=== PATIENT | male | born 1955 | race Caucasian/White ===

== ENCOUNTER → 2020-07-25 | Outpatient (CLI) | payer MEDICARE ==
--- NOTE | 2020-07-25 15:30 | XR ---
EXAMINATION TYPE: XR chest 2V DATE OF EXAM: 07/25/2020 COMPARISON: 07/15/2010 INDICATION: Shortness of breath x6 months TECHNIQUE: Frontal and lateral views of the chest are obtained. FINDINGS: The heart size is normal. The pulmonary vasculature is normal. The lungs are clear. There is mild hyperinflation flattening the diaphragms. Early emphysematous anastasiya nge could be considered. This could be good inspiratory effort. IMPRESSION: 1. Hyperinflation versus early emphysematous change. 2. No acute pulmonary process.
== END | disposition home or self-care (01) ==
LOC: RADXRMAIN 10:37
PROVIDERS: ATTEND Family Medicine
DX: R06.02 Shortness of breath (principal)
CPT/HCPCS: 71046

== ENCOUNTER 2020-08-03 06:08 | Day surgery (SDC) | payer MEDICARE ==
[2020-08-01 15:04] VITALS: BMI 32.1
[~2020-08-03 06:08] MED LIST: ALPRAZolam 0.5 MG TAB PO PRN; NITROGLYCERIN SL TABS 0.4 MG TAB SUBLINGUAL PRN; SODIUM CHLORIDE 0.9% 1,000 ML in EMPTY BAG 1 BAG IV ONE
[2020-08-03] MEDS: ALPRAZolam 0.25 MG TAB PO PRN ×2 (06:45→06:58)
[2020-08-03] MEDS ORDERED: SODIUM CHLORIDE 0.9% 1,000 ML IV ONE (06:55)
[2020-08-03 06:59] VITALS: TEMP 97.8
[2020-08-03] MEDS ORDERED: ATORVASTATIN 80 MG TAB PO ONE (07:00)
[2020-08-03] MEDS ORDERED: ASPIRIN 325 MG TAB PO ONE (07:00)
[2020-08-03 07:13] LABS: Basophils # (A) 0.1 k/uL (0-0.2); Basophils % (A) 1 %; Eosinophils # (A) 0.2 k/uL (0-0.7); Eosinophils % (A) 2 %; HCT 45.4 % (39.0-53.0); HGB 15.5 gm/dL (13.0-17.5); Lymphocytes % (A) 27 %; MCH 30.5 pg (25.0-35.0); MCV 89.6 fL (80.0-100.0); Mean Platelet Volume 7.6; Monocytes # (A) 0.7 k/uL (0-1.0); Monocytes % (A) 10 %; Neutrophils # (A) 4.2 k/uL (1.3-7.7); Neutrophils % (A) 58 %; Platelet Count 188 k/uL (150-450); RBC 5.07 m/uL (4.30-5.90); RDW 13.7 % (11.5-15.5); WBC 7.2 k/uL (3.8-10.6)
[2020-08-03] MEDS ORDERED: fentaNYL (PF) 50 MCG/ML 2 ML AMP ONE ×2 (07:13→10:00)
[2020-08-03] MEDS: BENZOCAINE SPRAY 1 CAN TOPICAL ONE ×2 (07:33→07:43)
[2020-08-03] MEDS ORDERED: fentaNYL (PF) 50 MCG/ML 2 ML AMP IVP ONE (07:44)
[2020-08-03] MEDS ORDERED: MIDAZOLAM 2 MG/2 ML VIAL IVP ONE ×2 (07:44→07:47)
[2020-08-03 08:16] VITALS: RESP 16
[2020-08-03 08:40] LABS: African American GFR (CKD) >90 (>60 ml/min/1.73 sqM); Anion Gap 7 mmol/L; Blood Urea Nitrogen 16 mg/dL (9-20); Calcium 8.7 mg/dL (8.4-10.2); Carbon Dioxide 22 mmol/L (22-30); Chloride 110 mmol/L (98-107); Glucose 104 mg/dL (74-99); Non-African American GFR(CKD) 87 (>60 ml/min/1.73 sqM); Potassium 4.1 mmol/L (3.5-5.1); Sodium 139 mmol/L (137-145)
[2020-08-03] MEDS ORDERED: IV FLUID CONTINUATION 700 ML IV ONE (09:29)
[2020-08-03] MEDS ORDERED: VERAPAMIL 2.5 MG/ML 2 ML AMP ONE (09:32)
[2020-08-03] MEDS ORDERED: LIDOCAINE 1% INJ 10MG/ML (20 ML MDV) ONE (09:32)
[2020-08-03] MEDS ORDERED: fentaNYL (PF) 50 MCG/ML 2 ML AMP IV ONE (10:01)
[2020-08-03] MEDS ORDERED: LIDOCAINE 1% INJ 10MG/ML (20 ML MDV) SQ ONE (10:09)
[2020-08-03] MEDS ORDERED: VERAPAMIL SYRINGE (5 MG/10 ML) INTRAARTER ONE (10:10)
[2020-08-03] MEDS ORDERED: HEPARIN SODIUM 1,000 UN/ML (10ML VL) ONE (10:25)
[2020-08-03] MEDS ORDERED: HEPARIN SODIUM 1,000 UN/ML (10ML VL) IV ONE (10:28)
[2020-08-03] MEDS ORDERED: IOPAMIDOL-370 125ML BTL INJ ONE (10:36)
[2020-08-03 10:45] LABS: O2 Sat Blood Gas 63.3 %
[2020-08-03 10:46] LABS: O2 Sat Blood Gas 96.6 %
[2020-08-03] MEDS ORDERED: RX INFO: IV CONTRAST WAS GIVEN 1 EACH MISC MISCELLANE PRN (10:48)
--- NOTE | 2020-08-03 10:55 | EST ---
EXERCISE STRESS INDICATION: Evaluation of mitral valve. PROCEDURE: After explaining the procedure to the patient, its risks and the complications, his blood pressure, heart rate, O2 saturation was monitored. He received 3 mg intravenous Versed and 50 mcg intravenous fentanyl. The probe was introduced in the esophagus without difficulty. Images were obtained. Following that, the probe was removed. There was no immediate complication. FINDINGS: Left atrial size is dilated. Left atrial appendage is normal. Left ventricular size is normal. Ejection fraction of 50% to 55%. The aortic valve revealed mild fibrocalcific change with aortic cusp with preserved opening, mitral valve revealed thickening of the anterior mitral valve leaflet with severe prolapse of the P2 segment. The tricuspid valve is normal. Pulmonic valve is normal, descending thoracic aorta appears normal. No pericardial effusion was noted. Contrast bubble study revealed no evidence of shunting across the interatrial septum with Valsalva maneuver. Doppler pulse wave and color Doppler obtained and revealed severe mitral eccentric regurgitation with moderate tricuspid regurgitation. The estimated right ventricular systolic pressure was 40 mmHg. Mild aortic regurgitation was noted. No shunting by color Doppler study was noted. CONCLUSION: 1. Dilated left atrium with normal appearance left atrial appendage. 2. Normal left ventricular size with an ejection fraction of 50% to 55%. 3. Severe prolapse of the P2 segment with severe eccentric mitral regurgitation. 4. Moderate tricuspid regurgitation with mild pulmonary hypertension. 5. Mild aortic regurgitation with mild thickening of the aortic leaflets. 6. Normal appearance of the descending thoracic aorta. 7. No shunting across the interatrial septum. 8. No pericardial effusion. MMODL / IJN: [id number] /
[2020-08-03] MEDS ORDERED: SODIUM CHLORIDE 0.9% 1,000 ML IV SCH (11:00)
--- NOTE | 2020-08-03 13:06 | P.GSCN ---
History of Present Illness Consult date: 08/03/20 Reason for Consult: Mitral valve regurgitation Requesting physician: Chad Maxwell History of present illness: This is a 64-year-old gentleman who follows on an outpatient basis with Dr. Joseph Wan for primary care and Dr. Maxwell for cardiology. He has a previous medical history of recent diagnosis of atrial fibrillation on Eliquis for anticoagulation, hypertension, hyperlipidemia, hypothyroid, left and right ingu inal hernia with repair of the right, and previous tobacco dependence. He has been experiencing progressive shortness of breath over the previous 6 months with the worst of it being in the last few weeks. In addition he has been experiencing paroxysmal nocturnal dyspnea and orthopnea as well as what sounds like symptoms of obstructive sleep apnea. He denies any chest pain, palpitations, syncope, stroke-like symptoms, edema, or any other aggravating or alleviating symptoms. Apparently he used to be a very active person but due to his symptoms of shortness of breath he has become much less active. He was found to have a new onset atrial fibrillation and noted to have a murmur by his primary care physician and was referred to cardiology who did a transthoracic echocardiogram demonstrating severe concentric left ventricular hypertrophy with EF 50%, no wall motion abnormalities, severe eccentric mitral regurgitation with moderate posterior leaflet mitral valve prolapse, mild to moderate aortic regurgitation with aortic valve area 1.13 cm and peak/mean gradient 38/12 mmHg, and mild to moderate tricuspid regurgitation. He was placed on Lopressor, Cozaar, Lasix, and Eliquis and was recommended to have transesophageal echocardiogram and heart catheterization. For thoroughness his primary care physician completed a pulmonary function test in the office with demonstrated FEV1 74% predicted, and a chest x-ray which demonstrated COPD but no acute process. He came to [facility] today for an outpatient ALEXY and cath. Heart catheterization revealed minimal nonobstructive disease in the circumflex artery. ALEXY demonstrated ejection fraction 50-55%, severe prolapse of P2 with severe eccentric mitral regurgitation, moderate tricuspid regurgitation with mild pulmonary hypertension, and mild aortic insufficiency with thickening of the leaflets. Due to these findings Dr. Jack from cardiothoracic surgery was consulted for surgical recommendations. Review of Systems Review of systems was completed and was negative except as noted - Constitutional Reports fatigue - Cardiovascular Reports as per HPI, Reports decreased exercise tolerance, Reports dyspnea on exertion, Reports orthopnea, Reports paroxysmal nocturnal dyspnea Past Medical History Past Medical History: Atrial Fibrillation, Hyperlipidemia, Hypertension, Thyroid Disorder Additional Past Medical History / Comment(s): recent SOB w/exertion, heart murmur History of Any Multi-Drug Resistant Organisms: None Reported Past Surgical History: Cholecystectomy, Hernia Repair, Tonsillectomy Additional Past Surgical History / Comment(s): Right inguinal hernia repair, umbilical hernia repair Past Anesthesia/Blood Transfusion Reactions: No Reported Reaction Past Psychological History: No Psychological Hx Reported Smoking Status: Former smoker Past Alcohol Use History: None Reported Past Drug Use History: None Reported - Past Family History Father Family Medical History: Cancer Additional Family Medical History / Comment(s): Father of brain cancer Mother Family Medical History: CVA/TIA Additional Family Medical History / Comment(s): Mother of stroke Medications and Allergies Home Medications Medication Instructions Recorded Confirmed Type Albuterol Sulfate [Proair Hfa] 1 - 2 puff INHALATION Q6HR PRN 08/01/20 08/03/20 History Apixaban [Eliquis] 5 mg PO BID 08/01/20 08/01/20 History Furosemide [Lasix] 20 mg PO DAILY 08/01/20 08/03/20 History Levothyroxine Sodium [Synthroid] 50 mcg PO DAILY 08/01/20 08/03/20 History Losartan Potassium [Cozaar] 50 mg PO PC-SUPPER 08/01/20 08/03/20 History Metoprolol Tartrate [Lopressor] 25 mg PO BID 08/01/20 08/03/20 History Allergies Allergy/AdvReac Type Severity Reaction Status Date / Time Penicillins Allergy Rash/Hives Verified 08/01/20 14:29 Surgical - Exam Vital Signs Temp Pulse Resp BP Pulse Ox 97.8 F 70 16 124/82 98 08/03/20 06:58 08/03/20 06:58 08/03/20 06:58 08/03/20 06:58 08/03/20 06:58 - General well developed, well nourished, no distress, no pain - Eyes PERRL, normal ocular movement - ENT Multiple silver fillings to his back teeth no hearing loss - Neck no masses, no bruits, trachea midline - Respiratory Lungs sounds diminished bilaterally. Respirations even, nonlabored. Currently on room air with oxygen saturation 96%. No chest wall deformities. No clubbing or cyanosis present. - Cardiovascular S1, barely audible S2 present. Systolic murmur present. Irregular rate and rhythm, controlled atrial fibrillation on telemetry. Palpable peripheral pulses bilaterally. No edema present. No calf pain or tenderness noted. No varicosities noted. - Abdomen Abdomen: soft, non tender, bowel sounds - Genitourinary Deferred - Rectum Deferred - Integumentary no rash, no growths, no abnormal pigmentation - Neurologic normal coordination, normal sensation - Musculoskeletal normal gait, normal posture - Psychiatric oriented to time, oriented to person, oriented to place, speech is normal, memory intact Results - Labs 08/03/20 06:40 08/03/20 08:18 Abnormal Lab Results - Last 24 Hours (Table) 08/03/20 Range/Units 08:18 Chloride 110 H (98-107) mmol/L Glucose 104 H (74-99) mg/dL Diabetes panel 08/03/20 Range/Units 08:18 Sodium 139 (137-145) mmol/L Potassium 4.1 (3.5-5.1) mmol/L Chloride 110 H (98-107) mmol/L Carbon Dioxide 22 (22-30) mmol/L BUN 16 (9-20) mg/dL Creatinine 0.92 (0.66-1.25) mg/dL Glucose 104 H (74-99) mg/dL Calcium 8.7 (8.4-10.2) mg/dL Calcium panel 08/03/20 Range/Units 08:18 Calcium 8.7 (8.4-10.2) mg/dL Pituitary panel 08/03/20 Range/Units 08:18 Sodium 139 (137-145) mmol/L Potassium 4.1 (3.5-5.1) mmol/L Chloride 110 H (98-107) mmol/L Carbon Dioxide 22 (22-30) mmol/L BUN 16 (9-20) mg/dL Creatinine 0.92 (0.66-1.25) mg/dL Glucose 104 H (74-99) mg/dL Calcium 8.7 (8.4-10.2) mg/dL Adrenal panel 08/03/20 Range/Units 08:18 Sodium 139 (137-145) mmol/L Potassium 4.1 (3.5-5.1) mmol/L Chloride 110 H (98-107) mmol/L Carbon Dioxide 22 (22-30) mmol/L BUN 16 (9-20) mg/dL Creatinine 0.92 (0.66-1.25) mg/dL Glucose 104 H (74-99) mg/dL Calcium 8.7 (8.4-10.2) mg/dL - Imaging Chest x-ray: report reviewed, image reviewed Assessment and Plan Assessment: 1. Severe prolapse of P2 with severe eccentric mitral regurgitation 2. Moderate tricuspid regurgitation with mild pulmonary hypertension 3. Mild aortic insufficiency 4. Mild nonobstructive disease in the circumflex coronary artery 5. Recent diagnosis of atrial fibrillation on Eliquis for anticoagulation 6. Hypertension 7. Hyperlipidemia 8. Hypothyroid 9. Previous tobacco dependence 10. Mild COPD with FEV1 74% of predicted Plan: The patient was seen and examined at the bedside in the extended stay unit. Chart/diagnostics reviewed. The case will be discussed in detail with Dr. Jack who will review the patient's films today and meet the patient. The usual perioperative course of mitral valve repair versus replacement was discussed in detail with the patient and his , all risks and benefits were reviewed, all questions were answered. The patient did indicate he would like to proceed with surgery. Most of the preoperative workup has already been c ompleted recently, we will order carotid Doppler studies. The patient was informed that we would need dental clearance prior to surgery, he did indicate that he sees a dentist regularly and they would inquire about dental clearance upon discharge today. We will calculate STS risk score and discuss with the patient and his . Continue medical management per primary care and cardiology. Once Dr. Jack has reviewed the patient's films and met with the patient and his the patient may be discharged to home with follow-up in our office to set a date for surgery. Thank you Dr. Maxwell for this consult. We look forward to working with you in the care of your patient. Time with Patient: Greater than 30
--- NOTE | 2020-08-03 14:58 | US ---
EXAMINATION TYPE: US carotid duplex BILAT DATE OF EXAM: 08/03/2020 COMPARISON: NONE CLINICAL HISTORY: Preoperative open heart. EXAM MEASUREMENTS: RIGHT: Peak Systolic Velocity (PSV) cm/sec ----- Right CCA: 69.1 ----- Right ICA: 67.6 ----- Right ECA: 84.1 ICA/CCA ratio: 1.0 RIGHT: End Diastole cm/sec ----- Right CCA: 16.6 ----- Right ICA: 29.0 ----- Right ECA: 10.4 LEFT: Peak Systolic Velocity (PSV) cm/sec ----- Left CCA: 68.3 ----- Left ICA: 60.5 ----- Left ECA: 85.0 ICA/CCA ratio: 0.9 LEFT: End Diastole cm/sec ----- Left CCA: 18.7 ----- Left ICA: 21.3 ----- Left ECA: 7.3 VERTEBRALS (direction of flow): Right Vertebral: Antegrade Left Vertebral: Antegrade Rhythm: Arrhythmia Minimal eccentric plaque grayscale images left carotid bulb. IMPRESSION: No hemodynamically significant stenosis seen in either internal carotid artery Criteria for Assigning % of Stenosis / Diameter reduction (Estimation based on the indirect measurements of the internal carotid artery velocities (ICA PSV). 1. Normal (no stenosis)=ICA PSV < 125 cm/s: ratio < 2.0: ICA EDV<40 cm/s. 2. Less than 50% stenosis=ICA PSV < 125 cm/s: ratio < 2.0: ICA EDV<40 cm/s. 3. 50 to 69% stenosis=ICA PSV of 125 to 230 cm/s: ration 2.0 ? 4.0: ICA EDV 40-100 cm/s. 4. Greater than 70% stenosis to near occlusion= ICA PSV > 230 cm/s: ratio > 4.0: ICA EDV > 100 cm/s. 5. Near occlusion= ICA PSV velocities may be low or undetectable: variable ratio and ICA EDV. 6. Total occlusion=unable to detect flow.
[2020-08-03 15:31] VITALS: BP 142/82; PULSE 82
--- NOTE | 2020-08-03 16:33 | CC ---
CARDIAC CATHETERIZATION REPORT Mr. Galloway is a 64-year-old male with newly diagnosed atrial fibrillation and mitral regurgitation with symptoms of significant dyspnea. In view of that, recommendation made regarding cardiac catheterization. The procedures, risks, and complications were discussed with the patient who is in full understanding and agreement. PROCEDURE: Patient was brought to lab intern in a fasting semi-sedated state after receiving fentanyl and Benadryl and achieving moderate conscious sedated state. Using Xylocaine anesthesia and Seldinger technique, a 6-Barbadian sheath was introduced in the right radial artery. Subsequently, the venous catheter in the left basilic vein was exchanged to a 6-Barbadian sheath and right heart catheterization performed using Fombell- Hoa catheter. Multiple pressure and samples were obtained. Cardiac output by thermodilution was calculated. Following that, selective right and left coronary angiography was performed using 5-Barbadian 3.5 bend right and left Latosha catheter. Multiple views of the coronary artery including hemiaxial views obtained. Following that, a 6-Barbadian tight pigtail catheter was introduced in the left ventricle and a 30- degree GUTIÉRREZ view of the left ventricle was obtained. Following that, catheter and sheath were removed. Hemostasis was obtained with deployment of TR band on the right radial and compression of the right basilic vein. Following that, the patient was returned to his room in stable condition. There was no immediate complication. Of note, the patient received 5000 units of intravenous heparin as well as intra-arterial verapamil. HEMODYNAMICS: Right atrial saturation 63%, pulmonary saturation 62%, radial artery saturation of 97%. Cardiac output by Wilfredo of 5 L/minute and by thermodilution 5.6 L/minutes. Pulmonary artery systolic pressure of 50 with a diastolic of 18 and a mean of 30 mmHg. Pulmonary capillary wedge pressures were V-wave of 45 with a mean of 25 mmHg. Right ventricular systolic pressure of 45 with an end-diastolic of 10, right atrium V-wave of 10 with a mean of 9 mmHg. There was no gradient across the aortic valve. CORONARIES: 1. FLUOROSCOPY: There was calcification involving the mitral valve. 2. LEFT MAIN: This is a short sized vessel, bifurcating into left circumflex, left anterior descending artery. Left main coronary artery has no evidence of high- grade stenosis. 3. LEFT ANTERIOR DESCENDING ARTERY: This is a large-sized vessel, reaching toward the apex with a wraparound apex segment, giving rise to a large diagonal branch. The left anterior descending artery has mild intimal disease proximally of 10% to 20% without any evidence of high-grade stenosis. 4. LEFT CIRCUMFLEX: This is a large nondominant vessel, giving rise to 3 obtuse marginal branch. The left circumflex has mild intimal disease in the mid segment of 10% to 20% without any evidence of high-grade stenosis. 5. RIGHT CORONARY ARTERY: This is a large dominant vessel, bifurcating distally into PDA and posterolateral segment and branches. The right coronary artery as well as branches have no evidence of obstructive coronary artery disease. 6. LEFT VENTRICULOGRAM: Left ventriculogram was performed in 30-degree GUTIÉRREZ view and revealed a normal left ventricular size with mild global hypokinesis. Estimated ejection fraction of 45% to 50%. There was 4+ mitral regurgitation with dilatation of the left atrium. CONCLUSION: 1. Mild coronary artery disease. 2. Mild to moderate pulmonary hypertension. 3. Severe mitral regurgitation with mildly impaired left ventricular systolic function. RECOMMENDATION: In view of finding anatomy, I recommend proceeding with evaluation for mitral valve repair. The rationale behind those recommendation were discussed with the patient and his family who are in full understanding and agreement. MMODL / IJN: [id number] /
--- NOTE | 2020-08-03 16:33 | LTR ---
DATE OF SERVICE: 08/03/2020 RE: Ridge Galloway Dear Dr. Wan; I had the pleasure to perform cardiac catheterization and transesophageal echocardiogram on Mr. Galloway, reports in hospital on August 03, 2020 and a full copy of the procedure note will be forwarded to you. In brief, he was found to have severe mitral regurgitation with mild to moderate pulmonary hypertension and mildly impaired left ventricular systolic function. Based on those findings, I have recommended to proceed with evaluation for mitral valve repair. I will keep you updated on his progress. Thank you again for allowing me to participate in this patient's care. Please feel free to call for any questions. Sincerely yours, Chad Maxwell MD MMMORAIMAL / KATIEN: [id number] /
[2020-08-03] MEDS ORDERED: LOSARTAN 50 MG TAB PO SCH (18:30)
[2020-08-03] MEDS ORDERED: METOPROLOL TARTRATE 25 MG TAB PO SCH (21:00)
[2020-08-04] MEDS ORDERED: LEVOTHYROXINE 50 MCG TAB PO SCH (06:30)
[2020-08-04] MEDS ORDERED: FUROSEMIDE 20 MG TAB PO SCH (09:00)
== END 2020-08-03 15:50 | disposition home or self-care (01) ==
LOC: CATHCVL 06:08
PROVIDERS: ATTEND Internal Medicine Interventional Cardiology
DX: I08.3 Combined rheumatic disorders of mitral, aortic and tricuspid valves (principal); I27.20 Pulmonary hypertension, unspecified; I25.10 Atherosclerotic heart disease of native coronary artery without angina pectoris; I48.11 Longstanding persistent atrial fibrillation; I10 Essential (primary) hypertension; E78.5 Hyperlipidemia, unspecified; E03.9 Hypothyroidism, unspecified; J44.9 Chronic obstructive pulmonary disease, unspecified; Z87.891 Personal history of nicotine dependence; Z79.899 Other long term (current) drug therapy; Z79.890 Hormone replacement therapy; Z79.82 Long term (current) use of aspirin; Z88.0 Allergy status to penicillin; Z87.19 Personal history of other diseases of the digestive system; Z98.890 Other specified postprocedural states; Z90.49 Acquired absence of other specified parts of digestive tract; Z79.01 Long term (current) use of anticoagulants; Z90.89 Acquired absence of other organs; Z80.8 Family history of malignant neoplasm of other organs or systems; Z82.3 Family history of stroke
CPT/HCPCS: 93312; 93320; 93325; 93460; 80048; 85018; 82810; 85025; 87070; 93880; C1751; C1769; C1894; J2250; J2001; J3010; J1644; Q9967

== ENCOUNTER → 2020-09-14 | Outpatient (CLI) | payer MEDICARE, BC ==
[2020-09-14 11:08] LABS: Partial Thromboplastin Time 26.4 sec (22.0-30.0); Prothrombin Time 10.6 sec (9.0-12.0)
[2020-09-14 11:13] LABS: Albumin 4.4 g/dL (3.5-5.0); Calcium 9.3 mg/dL (8.4-10.2); Potassium 4.5 mmol/L (3.5-5.1); Total Bilirubin 0.8 mg/dL (0.2-1.3); Total Protein 7.2 g/dL (6.3-8.2)
[2020-09-14 11:14] LABS: Appearance,Urine Clear (Clear); Bilirubin,Urine Negative (Negative); Blood,Urine Negative (Negative); Color,Urine Light Yellow; Glucose,Urine (UA) Negative (Negative); Ketones,Urine Negative (Negative); Leukocyte Esterase,Urine Negative (Negative); Nitrite,Urine Negative (Negative); Protein,Urine Negative (Negative); Specific Gravity,Urine 1.012 (1.001-1.035); Urobilinogen,Urine <2.0 mg/dL (<2.0)
--- NOTE | 2020-09-14 11:49 | XR ---
EXAMINATION TYPE: XR chest 2V DATE OF EXAM: 09/14/2020 COMPARISON: 07/25/2020 HISTORY: Shortness of breath TECHNIQUE: Frontal and lateral views of the chest are obtained. FINDINGS: Scattered senescent parenchymal changes noted. Hyperinflation compatible with COPD. No evidence for infiltrate. No evidence for atelectasis. Heart size is stable. Mediastinal structures are stable and grossly unremarkable. No evidence for hilar prominence. Degenerative changes dorsal spine. IMPRESSION: 1. No evidence for acute pulmonary disease.
[2020-09-14 12:08] LABS: HGB 15.2 gm/dL (13.0-17.5); MCH 31.6 pg (25.0-35.0); MCHC 34.5 g/dL (31.0-37.0); MCV 91.6 fL (80.0-100.0); Mean Platelet Volume 8.2; Platelet Count 169 k/uL (150-450); RBC 4.81 m/uL (4.30-5.90); RDW 13.2 % (11.5-15.5); WBC 6.7 k/uL (3.8-10.6)
[2020-09-14 21:55] LABS: Hepatitis A Antibody IgM Non-Reactive (Non-Reactive); Hepatitis B Core IgM Non-Reactive (Non-Reactive); Hepatitis B Surface Antigen Non-Reactive (Non-Reactive); Hepatitis C IgG Antibody Non-Reactive (Non-Reactive)
--- NOTE | 2020-09-16 10:50 | P.PN ---
Progress Note - Text Progress Note Date: 09/14/20 5 meter walk test completed 09/14/20, patient had no difficulty #1 2.58 sec #2 3.2 sec #3 3.12 sec
--- NOTE | 2020-09-21 10:39 | P.VSCSTY ---
Greater Saphenous Vein Mapping This is bilateral lower extremity greater saphenous vein mapping. Date of service: 09/14/2020 Vein quality and ultrasound appearance: We see no intraluminal thrombus or wall changes. Vein size groin right : 7.8 x 6.9 groin left: 7.0 x 7.8 High thigh right: 6.2 x 6.1 high thigh left: 6.0 x 5.0 Mid thigh right: 3.7 x 4.0 mid thigh left: 4.4 x 3.8 Above-knee right: 4.1 x 3.3 above- knee left: 5.4 x 5.1 Below knee right: 3.0 x 2.6 below-knee left: 2.9 x 2.7 Mid calf right: 3.7 x 2.9 mid calf left: 3.4 x 3.0 Ankle right: 3.3 x 2.3 ankle left: 3.8 x 3.4 Impression: Usable bilateral greater saphenous vein.
== END | disposition home or self-care (01) ==
LOC: LABPAT 08:15
PROVIDERS: ATTEND Surgery
DX: Z01.818 Encounter for other preprocedural examination (principal); U07.1 COVID-19; I10 Essential (primary) hypertension; E03.9 Hypothyroidism, unspecified; I05.1 Rheumatic mitral insufficiency; E78.5 Hyperlipidemia, unspecified; R01.1 Cardiac murmur, unspecified; Z79.01 Long term (current) use of anticoagulants; I48.91 Unspecified atrial fibrillation; R73.9 Hyperglycemia, unspecified; Z13.818 Encounter for screening for other digestive system disorders
CPT/HCPCS: 86900; 86901; 80061; 80053; 80074; 84443; 83735; 85027; 85610; 85730; 86850; 86920; 86870; 86880; 81003; 87086; 83036; 71046; 93970; 93005; 36415; U0003; C9803

== ENCOUNTER 2020-09-19 05:33 | Inpatient (IN) | payer MEDICARE, BC ==
[~2020-09-19 05:33] MED LIST changes: +ALBUMIN HUMAN 25% 50 ML IV ONE; +ALBUMIN HUMAN 5% 500 ML IVPB ONE; -ALPRAZolam 0.5 MG TAB PO PRN; +ASPIRIN 325 MG TAB PO ONE; +ATORVASTATIN 10 MG TAB PO ONE; +CALCIUM CHLORIDE 100 MG/ML 10 ML SYRINGE IV ONE; +CHLORHEXIDINE GLUCONATE 15 ML CUP MUCOUS MEM ONE; +CLEVIDIPINE BUTYRATE 25 MG in EMPTY BAG 1 BAG IV ONE; +DEXTROSE 5% IN WATER 1,000 ML with POTASSIUM CHLORIDE 110 MEQ, MAGNESIUM SULFATE 16 MEQ... IV ONE; +DEXTROSE 5% IN WATER 1,000 ML with POTASSIUM CHLORIDE 25 MEQ, SODIUM CHLORIDE 2.5MEQ/ML... IRRIGATION ONE; +HEPARIN SODIUM 1,000 UN/ML (10ML VL) IV ONE; +HEPARIN SODIUM,PORCINE 5,000 UNIT in SODIUM CHLORIDE 0.9% 500 ML 500 ML IV ONE; +INSULIN REGULAR 100 UNIT in SODIUM CHLORIDE 0.9% 100 ML IV ONE; +LACTATED RINGERS 1,000 ML IV ONE; +MAGNESIUM SULFATE MG 500 MG/ML IV ONE; +MANNITOL 25% 12.5 GM/50 ML VIAL IV ONE; +METOPROLOL TARTRATE 12.5 MG TAB PO ONE; -NITROGLYCERIN SL TABS 0.4 MG TAB SUBLINGUAL PRN; +NITROGLYCERIN-D5W PMX 25 MG/250 ML BTL IV ONE; +NITROGLYCERIN-D5W PMX 50 MG in DEXTROSE/WATER 1 250ML.BAG IV ONE; +NOREPINEPHRINE 4 MG in SODIUM CHLORIDE 0.9% 250 ML IV ONE; +PAPAVERINE 360 MG in SODIUM CHLORIDE 0.9% 90 ML IV ONE; +PHENYLEPHRINE 10 MG/ML VIAL IV ONE; +PHENYLEPHRINE 40 MG in SODIUM CHLORIDE 0.9% 250 ML IV ONE; +PROTAMINE SULFATE 10 MG/ML 25 ML VIAL IV ONE; +PROTAMINE SULFATE 250 MG in EMPTY BAG 1 BAG IV ONE; +SODIUM BICARB 8.4% 50 ML SYR (1 MEQ/ML) IV ONE; +SODIUM CHLORIDE 0.9% 1,000 ML IV ONE; -SODIUM CHLORIDE 0.9% 1,000 ML in EMPTY BAG 1 BAG IV ONE; +TRANEXAMIC ACID 2,000 MG in SODIUM CHLORIDE 0.9% 80 ML IV ONE; +ceFAZolin 1,000 MG in SODIUM CHLORIDE 0.9% IRRIGATIO 1,000 ML IRRIGATION ONE; +ceFAZolin 2,000 MG in SODIUM CHLORIDE 0.9% 30 ML IVPB ONE; +propofoL 1,000 MG/100 ML VIAL IV ONE
[2020-09-19 06:31] LABS: Glucose,Whole Blood 100 mg/dL (75-99)
[2020-09-19 08:25] LABS: ABG Base Excess 0.5 mmol/L; ABG Glucose Whole Blood 96 mg/dL (75-99); ABG HCO3 26 mmol/L (21-25); ABG Hematocrit 42 % (34.0-46.0); ABG Ionized Calcium 4.7 mg/dL (4.5-5.3); ABG Lactic Acid Whole Blood 1.1 mmol/L (0.5-1.6); ABG PCO2 42 mmHg (35-45); ABG PH 7.39 (7.35-7.45); ABG PO2 154 mmHg (83-108); ABG Potassium Whole Blood 4.5 mmol/L (3.4-4.5); ABG Sodium Whole Blood 140 mmol/L (135-146); ABG TCO2 27 mmol/L (19-24)
[2020-09-19 09:42] LABS: ABG Base Excess -1.3 mmol/L; ABG Glucose Whole Blood 105 mg/dL (75-99); ABG HCO3 25 mmol/L (21-25); ABG Hematocrit 43 % (34.0-46.0); ABG Ionized Calcium 4.7 mg/dL (4.5-5.3); ABG Lactic Acid Whole Blood 0.8 mmol/L (0.5-1.6); ABG Oxygen Saturation 99.1 % (94-97); ABG PCO2 46 mmHg (35-45); ABG PH 7.34 (7.35-7.45); ABG PO2 180 mmHg (83-108); ABG Potassium Whole Blood 4.4 mmol/L (3.4-4.5); ABG Sodium Whole Blood 140 mmol/L (135-146); ABG TCO2 26 mmol/L (19-24)
[2020-09-19 10:16] LABS: ABG Base Excess -1.7 mmol/L; ABG Glucose Whole Blood 99 mg/dL (75-99); ABG HCO3 25 mmol/L (21-25); ABG Hematocrit 38 % (34.0-46.0); ABG Ionized Calcium 4.4 mg/dL (4.5-5.3); ABG Lactic Acid Whole Blood 0.7 mmol/L (0.5-1.6); ABG Oxygen Saturation 99.6 % (94-97); ABG PCO2 46 mmHg (35-45); ABG PH 7.33 (7.35-7.45); ABG PO2 419 mmHg (83-108); ABG Potassium Whole Blood 4.8 mmol/L (3.4-4.5); ABG Sodium Whole Blood 141 mmol/L (135-146); ABG TCO2 26 mmol/L (19-24)
[2020-09-19 10:47] LABS: ABG Base Excess -1.3 mmol/L; ABG Glucose Whole Blood 163 mg/dL (75-99); ABG HCO3 24 mmol/L (21-25); ABG Hematocrit 34 % (34.0-46.0); ABG Ionized Calcium 4.3 mg/dL (4.5-5.3); ABG Lactic Acid Whole Blood 1.1 mmol/L (0.5-1.6); ABG Oxygen Saturation 99.7 % (94-97); ABG PCO2 42 mmHg (35-45); ABG PH 7.37 (7.35-7.45); ABG PO2 317 mmHg (83-108); ABG Potassium Whole Blood 5.7 mmol/L (3.4-4.5); ABG Sodium Whole Blood 136 mmol/L (135-146); ABG TCO2 25 mmol/L (19-24)
[2020-09-19 11:14] LABS: ABG Base Excess -2.8 mmol/L; ABG Glucose Whole Blood 196 mg/dL (75-99); ABG HCO3 26 mmol/L (21-25); ABG Hematocrit 37 % (34.0-46.0); ABG Ionized Calcium 4.4 mg/dL (4.5-5.3); ABG Lactic Acid Whole Blood 1.1 mmol/L (0.5-1.6); ABG Oxygen Saturation 99.4 % (94-97); ABG PCO2 65 mmHg (35-45); ABG PH 7.21 (7.35-7.45); ABG PO2 325 mmHg (83-108); ABG Potassium Whole Blood 5.9 mmol/L (3.4-4.5); ABG Sodium Whole Blood 136 mmol/L (135-146); ABG TCO2 28 mmol/L (19-24)
[2020-09-19] MEDS ORDERED: AMIODARONE 360 MG in DEXTROSE 5% IN WATER 200 ML IV PRN ×2 (12:13)
[2020-09-19] MEDS ORDERED: CALCIUM GLUCONATE 2 GM in SODIUM CHLORIDE 0.9% 100 ML IVPB PRN (12:13)
[2020-09-19] MEDS ORDERED: AMIODARONE 300 MG in DEXTROSE 5% IN WATER 250 ML IV PRN ×2 (12:13)
[2020-09-19] MEDS ORDERED: ONDANSETRON 4 MG/2 ML VIAL IVP PRN (12:13)
[2020-09-19] MEDS ORDERED: IPRATROPIUM-ALBUTEROL 3 ML NEB INHALATION PRN (12:13)
[2020-09-19] MEDS ORDERED: Potassium Replacement Protocol 1 EACH MISC MISCELLANE PRN (12:13)
[2020-09-19] MEDS ORDERED: Phosphorus Replacement Protoco 1 EACH MISC MISCELLANE PRN (12:13)
[2020-09-19] MEDS ORDERED: METOCLOPRAMIDE 5 MG/ML 2 ML VIAL IVP PRN (12:13)
[2020-09-19] MEDS ORDERED: Magnesium Replacement Protocol 1 EACH MISC MISCELLANE PRN (12:13)
[2020-09-19] MEDS ORDERED: BENZOCAINE/MENTHOL LOZENG 1 EACH LOZENGE MUCOUS MEM PRN (12:13)
[2020-09-19] MEDS: NOREPINEPHRINE 4 MG in SODIUM CHLORIDE 0.9% 250 ML IV SCH (15:00)
[2020-09-19] MEDS: MILRINONE-D5W PMX 20 MG in DEXTROSE/WATER 1 100ML.BAG IV SCH (15:00)
[2020-09-19] MEDS: IPRATROPIUM-ALBUTEROL 3 ML NEB INHALATION SCH ×4 (15:11→19:42)
[2020-09-19 15:12] LABS: Glucose,Whole Blood 150 mg/dL (75-99)
[2020-09-19] MEDS: INSULIN REGULAR 100 UNIT in SODIUM CHLORIDE 0.9% 100 ML IV SCH (15:17)
[2020-09-19] MEDS: SODIUM CHLORIDE 0.9% 1,000 ML IV SCH (15:18)
[2020-09-19 15:22] LABS: Basophils # (A) 0.1 k/uL (0-0.2); Basophils % (A) 0 %; Eosinophils % (A) 0 %; HCT 41.9 % (39.0-53.0); Lymphocytes # (A) 1.1 k/uL (1.0-4.8); Lymphocytes % (A) 8 %; MCH 30.5 pg (25.0-35.0); MCHC 33.5 g/dL (31.0-37.0); MCV 91.2 fL (80.0-100.0); Mean Platelet Volume 9.2; Monocytes # (A) 1.1 k/uL (0-1.0); Monocytes % (A) 8 %; Neutrophils # (A) 12.2 k/uL (1.3-7.7); Neutrophils % (A) 83 %; Platelet Count 124 k/uL (150-450); RBC 4.59 m/uL (4.30-5.90); RDW 13.6 % (11.5-15.5); WBC 14.6 k/uL (3.8-10.6)
[2020-09-19 15:29] LABS: ABG Base Excess -1.9 mmol/L; ABG HCO3 25 mmol/L (21-25); ABG Oxygen Saturation 94.8 % (94-97); ABG PCO2 52 mmHg (35-45); ABG PH 7.29 (7.35-7.45); ABG PO2 91 mmHg (83-108); ABG TCO2 26 mmol/L (19-24)
[2020-09-19 15:31] LABS: Glucose,Whole Blood 150 mg/dL (75-99)
[2020-09-19 15:33] LABS: Allen Test Performed? no
[2020-09-19 15:35] LABS: INR 1.2 (<1.2); Prothrombin Time 11.8 sec (9.0-12.0)
--- NOTE | 2020-09-19 15:37 | XR ---
EXAMINATION TYPE: XR chest 1V portable DATE OF EXAM: 09/19/2020 HISTORY: Post Op CABG COMPARISON: 09/14/2020 TECHNIQUE: Single view of the chest is submitted. FINDINGS: Endotracheal tube, NG tube, SG catheter, mediastinal drains and chest tubes are appropriately placed. Post operative changes of CABG. No sizeable pneumothorax. Scattered Pleural-parenchymal opacities may reflect atelectasis. The heart is not enlarged. IMPRESSION: 1. Post operative changes of CABG.
[2020-09-19 15:44] LABS: ALT 26 U/L (4-49); AST 163 U/L (17-59); African American GFR (CKD) >90 (>60 ml/min/1.73 sqM); Albumin 3.2 g/dL (3.5-5.0); Alkaline Phosphatase 47 U/L (38-126); Anion Gap 3 mmol/L; Blood Urea Nitrogen 16 mg/dL (9-20); Calcium 8.4 mg/dL (8.4-10.2); Carbon Dioxide 25 mmol/L (22-30); Chloride 108 mmol/L (98-107); Glucose 142 mg/dL (74-99); Magnesium 2.6 mg/dL (1.6-2.3); Non-African American GFR(CKD) 81 (>60 ml/min/1.73 sqM); Potassium 4.7 mmol/L (3.5-5.1); Sodium 136 mmol/L (137-145); Total Bilirubin 1.4 mg/dL (0.2-1.3); Total Protein 5.4 g/dL (6.3-8.2)
[2020-09-19] MEDS ORDERED: AMIODARONE 360 MG in DEXTROSE 5% IN WATER 200 ML IV ONE ×2 (16:00)
[2020-09-19] MEDS ORDERED: ALBUMIN HUMAN 5% 250 ML in EMPTY BAG 1 BAG IVPB STA (16:10)
[2020-09-19] MEDS: ACETAMINOPHEN IV (For NPO) 1,000 MG in EMPTY BAG 1 BAG IVPB SCH ×2 (16:28→20:19)
[2020-09-19 16:46] LABS: Glucose,Whole Blood 159 mg/dL (75-99)
[2020-09-19 17:28] LABS: Glucose,Whole Blood 168 mg/dL (75-99)
[2020-09-19] MEDS ORDERED: DEXMEDETOMIDINE/0.9% NACL(PMX) 400 MCG in EMPTY BAG 1 BAG IV SCH (18:00)
[2020-09-19 18:10] LABS: Basophils % (A) 0 %; Eosinophils % (A) 0 %; HCT 39.7 % (39.0-53.0); HGB 13.4 gm/dL (13.0-17.5); Lymphocytes # (A) 0.7 k/uL (1.0-4.8); Lymphocytes % (A) 5 %; MCH 30.8 pg (25.0-35.0); MCHC 33.8 g/dL (31.0-37.0); MCV 91.2 fL (80.0-100.0); Mean Platelet Volume 8.1; Monocytes # (A) 0.8 k/uL (0-1.0); Monocytes % (A) 5 %; Neutrophils # (A) 12.3 k/uL (1.3-7.7); Neutrophils % (A) 89 %; Platelet Count 133 k/uL (150-450); RBC 4.36 m/uL (4.30-5.90); RDW 13.7 % (11.5-15.5); WBC 13.9 k/uL (3.8-10.6)
[2020-09-19] MEDS: ALBUMIN HUMAN 5% 250 ML in EMPTY BAG 1 BAG IVPB ONE ×2 (18:15→18:45)
[2020-09-19 18:24] LABS: Glucose,Whole Blood 160 mg/dL (75-99)
[2020-09-19] MEDS: KETOROLAC 15 MG/ML 1 ML VIAL IVP SCH ×2 (18:48→23:05)
[2020-09-19] MEDS ORDERED: ALBUMIN HUMAN 5% 250 ML in EMPTY BAG 1 BAG IVPB ONE (19:15)
[2020-09-19 19:28] LABS: Glucose,Whole Blood 141 mg/dL (75-99)
--- NOTE | 2020-09-19 19:37 | OP ---
OPERATIVE REPORT DATE OF SERVICE: 09/19/2020. SURGEON: Dr. Arnold Jack. MEDICARE BILLER: Nia Bustillo. PREOPERATIVE DIAGNOSES: Severe mitral valve regurgitation with prolapse of P2 on a Snyder valve, moderate tricuspid valve regurgitation, mild aortic valve regurgitation, persistent atrial fibrillation with dilated atria, mild left ventricular dysfunction, hypertension, hyperlipidemia, hypothyroidism. POSTOPERATIVE DIAGNOSIS: Severe mitral valve regurgitation with prolapse of P2 on a Snyder valve, moderate tricuspid valve regurgitation, mild aortic valve regurgitation, persistent atrial fibrillation with dilated atria, mild left ventricular dysfunction, hypertension, hyperlipidemia, hypothyroidism. PROCEDURE PERFORMED: 1. Complex mitral valve repair with construction of 3 pairs of chelsea cord to P2 with complete ring annuloplasty using a 38 mm physio 2 ring. 2. Tricuspid valve repair using a 30 mm MC 3 ring. 3. Full biatrial Maze 4 procedure using radiofrequency and cryoablation. 4. Exclusion of the left atrial appendage using a 40 mm AtriClip. 5. Intraoperative transesophageal echocardiogram and epiaortic scanning. INDICATION FOR SURGERY: The patient is a 64-year-old gentleman seen as an outpatient after being worked up for signs and symptoms of congestive heart failure with a 2D echo showing severe mitral valve regurgitation. 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 There was mild central aortic valve regurgitation. Ejection fraction was estimated around 50%. Both right and left atria were dilated. The patient is brought in today for elective mitral valve surgery with potential repair and if not a repairable bioprosthetic replacement, tricuspid valve repair and biatrial Maze. The patient has been on anticoagulation for several months now for persistent atrial fibrillation. The SDS risk was discussed with him and his . They understood it and agreed to proceed. DESCRIPTION OF THE PROCEDURE: The patient in supine position. Right internal jugular [place]-Hoa catheter and a right radial arterial line were placed. His PA pressure was 60/33 and his cardiac index was 1.6 with a mean arterial pressure of 90. Subsequently was brought to the operating room where general endotracheal anesthesia was induced uneventfully. The pressure went down to around 50 over 25 and his cardiac index was 1.8. A Mora catheter was inserted. The chest, abdomen and both lower extremities were prepped and draped using ChloraPrep. Ioban was used to cover the skin. Patient received 2 g of cefazolin intravenously. Transesophageal echocardiogram confirmed the preoperative finding of severe mitral valve regurgitation with prolapse of P2 and dilated tricuspid anulus with moderate tricuspid valve regurgitation. There were no clots in the left atrial appendage. Midline sternotomy was performed and then bone was reasonably dense. Bone seal was used. The Josephine mitral retractor was placed and used to help exposure in this case. The mediastinal fat was transected between 2 ties and epiaortic scanning revealed normal ascending aorta. Pericardium was opened in an inverted T-fashion and a pericardial cradle was created. Findings included a normal soft aorta and enlarged heart. After systemic heparinization after placement of respective pledgeted pursestring, aortic cannulation with a 21-Slovak soft flow cannula, direct SVC cannulation with a right angle 28-Slovak cannula and IVC cannulation at the junction with the right atrium with a 32-Slovak straight cannula was performed. Antegrade cardioplegia catheter as well as retrograde cardioplegia catheter were placed. Cardioplegia bypass was initiated and with the heart empty and beating, we were able to encircle initially the right-sided pulmonary vein and proceeded at 3 radiofrequency ablation with a bipolar clamp. With the enlarged heart, the left-sided lesion set would not have been possible and at this point, I clamped the aorta and myocardial protection was achieved with initial dose of 1200 mL of antegrade cold blood cardioplegia followed by 300 mL of retrograde cold blood cardioplegia. The ligament of Patric was incised with the Bovie. However, in view of the patient enlarged heart and enlarged atria, the encircling left pulmonary vein appeared to be problematic and for that reason, at this point, I decided to do the pulmonary vein box lesion endocardially. I excluded the left atrial appendage at its base with a 40 mm AtriClip. Subsequently, the interatrial groove was developed and the left atrial atrium was opened in a standard transverse fashion. Using the Josephine retractor that helped us somewhat in visualization in this very deep chest and enlarged atria. At this point, I completed the left atrial Maze lesion set with a dome lesion by having 1 jaw on the inside and 1 jaw on the outside of the left atrial dome crossing into the left superior pulmonary vein. The same was done for floor lesion. To connect those 2, I proceeded with the cryoablation completing the box lesion above the left sided pulmonary veins. Another cryoablation line from that box lesion to the os of the left atrial appendage was performed. The coronary sinus was marked from outside in an area away from the coronary vessels and cryoablation of that level was performed for the isthmus line. The ice ball was marked from inside and another cryoablation endocardially at this same level was performed. With that, we completed the left atrial full Maze 4 lesion sets. At this point, attention was moved at the mitral valve. The mitral valve was very oblong and more in an AP direction and than in a superior inferior direction. I placed several non pledgeted 2-0 Tycron around the posterior anulus to help us in visualization. Exploration revealed degenerative valve with excess tissue and calcification at the base of P3 as well of some calcification at the base of A2. Testing and each segment was checked and appeared to be an isolated P2 prolapse. Resection would not have been possible as P3 was partially calcified. For that reason, I marked on either side of P2, the last normal cord with looping silk suture. At this point, I decided to pass chelsea cords to the P2 segment. Two pairs of chelsea cord using [place] 4-0 were passed in the posterior papillary muscle and 1 pair in the anterior papillary muscle. Those were passed over and over all along the coaptation surface of the posterior leaflet, not the free edge of it trying to shorten it. I intentionally shortened those to around 1.5 cm length to prevent DIOGENES. They were tied and testing at this point revealed excellent seal with a very small leak centrally. The annuloplasty sutures were completed all around the anulus. There was a total of 16 sutures. The biggest available physio 2 ring we had was 38 and that was selected and all the needles were passed into the ring and then the needles were cut and the suture tied using the core knot device. Testing revealed good seal at this point. We proceeded at closing the left atrium with 1 layer using 4-0 Prolene pledgeted running core each corner and meeting in the midline. Before full closure, we proceeded de- airing maneuver. To mention that the CO2 was flowing over the field as long as the left atrium was opened. Attention was moved at this point at the right atrium. Both cava had been encircled and they were snared. I had opened the right atrium in an oblique fashion. We proceeded at a radiofrequency ablation with 1 jaw endocardial and 1 jaw epicardial going up to the SVC and another 1 from the opening towards the SVC. Another radiofrequency ablation to the right atrial appendage more padmini- superiorly was performed to stay away from the SA node vessels. The right atrial modified Maze 4 lesion set was completed by cryoablation from the atriotomy across the anulus of the tricuspid valve at around 1:00 pm position. The tricuspid anulus was dilated. A total of 10 Tycron tool suture were placed starting from the mid aspect of the septal leaflet all around to the commissure between the anterior and the septal leaflet. A downsizing annuloplasty 30 mm MC 3 ring was selected and all the sutures were passed in it and the needles were cut and the suture tied using the core knot device. Testing revealed excellent seal. The [place] was free. Rewarming was started as we closed the right atriotomy using 4-0 Prolene reinforced on each side by strip of autologous pericardium that I had harvested initially. The patient had been given around 1 L of warm blood and was given lidocaine, magnesium, and half load of Primacor. De-airing maneuvers were done with the patient Trendelenburg and we unclamped the aorta with the aortic root vent on maximum. The patient regained spontaneous sinus rhythm. Two monopolar atrial pacing wires were affixed, one to the junction of the right atrium with SVC and one on the right atrial closure line. One bipolar ventricular pacing wire was driven via the inferior aspect of the right ventricle. After a period of reperfusion, we came off long-term through the pump and ALEXY at this point showed good seal and no evidence of Diogenes at the level of the mitral valve. With that, we were able to wean off cardiac bypass with a 0.3 mics per kg per minute of Primacor and low-dose Levophed. The cardiac index was 2.4. De-airing was guided with a ALEXY. There was no TR. There was a trivial mitral regurgitation. No Diogenes again. The left ventricle function was moderately depressed. The right ventricular function was normal. With that test dose protamine was given. Then at half dose, all the suckers were stopped. Decannulation followed. The aortic cannulation site required reinforcement with a pledgeted 4-0 Prolene. To mention that I had placed 1 pledgeted Prolene 4-0 suture from the endocardial surface of the left atrium to close what seemed to be a slit in the dome of the left atrium. I also had to place 1 pledgeted 4-0 Prolene BB on the outside superior aspect of the left superior pulmonary vein. There was some evidence of a small leak at that level and that was at the initial attempt at encircling the left pulmonary veins. Both areas were fine. There was no bleeding noted. Two nineteen-Slovak Gio drains were left substernally. Pericardial fat and pericardium were loosely approximated over the heart. I made an opening in the right pleura intentionally and drained it with a 19-Slovak Gio drain. After ensuring adequate hemostasis, and hemodynamic and after correct sponge, instrument, and needle count, the sternum was closed using 5 [id number] pineal cable after interposing fibular between the sternal edges. Thorough irrigation of cefazolin followed. The rest of the closure proceeded in layers. Skin glue was applied. Patient did not receive any blood bank product but received around 900 mL of Cell Saver blood. He was transferred to the ICU on moderate dose Levophed and Primacor with excellent hemodynamic with PA pressure that went down to around 40 over 12. The cardiac index was 2.6 with the chest closed. Normal sinus rhythm, atrial paced at 90 for optimal hemodynamics and mean artery pressure of around 73. MMODL / IJN: [id number] / [facility] HOSPITALElvira
--- NOTE | 2020-09-19 19:40 | P.CNPUL ---
History of Present Illness Consult date: 09/19/20 Chief complaint: thoracotomy, mitral valve replacement History of present illness: this is a 64-year-old male patient who has never heart disease with severe mitral regurgitation. Tricuspid regurgitation and exertional dyspnea addition to chronic atrial fibrillation. The patient also has history of hypertension, hyperlipidemia, hypothyroidism and an inguinal hernia bilateral. He does have also symptoms obstructive sleep apnea although this has not been officially diagnosed. His preop ejection fraction was in the order of 50% based on the ALEXY and The Patient Severe Concentric LVH, Severe Mitral Regurgitation, [id number] Aortic Regurgitation and Aortic Valve of 1.13 Cm Mild to Moderate Tricuspid Regurgitation. Based on his symptomatic valvular heart disease, the patient was taken to the operating room today and the patient underwent a mitral valve replacement and a tricuspid valve repair. The patient postop was brought into the intensive care unit for further evaluation and treatment. he patient arrived on a mechanical ventilator within assist-control mode at a rate of 12 with a tidal volume of 600 and FiO2 of 100% and a PEEP of 8. Initial blood gas showed a pH of 7.29 with a pCO2 of 52 and pO2 of 91. The this is a ventilator changes were done. The patient was admitted with Precedex. The patient had a cardiac index of 5.0 with a cardiac output of 11.5. He was on milrinone running at 0.3 g per KG per minute and norepinephrine infusion running at 0.05 g per KG per minute. the pulmonary artery pressures are 34/12. The patient is also on insulin drip at 6 units an hour and the patient is also on amiodarone drip at 1 mg per minute. His cardiac rhythm is sinus. Urine output is in order of 30 mL an hour. The patient has a mediastinal chest tube in the right pleural chest tube. Output from the right pleural chest tube has been minimal and the mediastinal chest tube output has been in the order of 400 mL. The current hemoglobin is at 13.4. Review of Systems ROS unobtainable: due to endotracheal tube Past Medical History Past Medical History: Atrial Fibrillation, COPD, Hypertension, Thyroid Disorder Additional Past Medical History / Comment(s): present left inguinal hernia, murmur-mitral valve regurgitation, hypothyroidism History of Any Multi-Drug Resistant Organisms: None Reported Past Surgical History: Cholecystectomy, Heart Catheterization, Hernia Repair, Tonsillectomy Additional Past Surgical History / Comment(s): Right inguinal hernia repair, umbilical hernia repair,ALEXY Past Anesthesia/Blood Transfusion Reactions: No Reported Reaction Additional Past Anesthesia/Blood Transfusion Reaction / Comment(s): no hx blood transfusion Smoking Status: Former smoker - Past Family History Father Family Medical History: Cancer Additional Family Medical History / Comment(s): Father of brain cancer Mother Family Medical History: CVA/TIA Additional Family Medical History / Comment(s): Mother of stroke Medications and Allergies Home Medications Medication Instructions Recorded Confirmed Type Albuterol Sulfate [Proair Hfa] 1 - 2 puff INHALATION Q6HR PRN 08/01/20 09/14/20 History Apixaban [Eliquis] 5 mg PO BID 08/01/20 09/14/20 History Furosemide [Lasix] 20 mg PO DAILY 08/01/20 09/14/20 History Levothyroxine Sodium [Synthroid] 50 mcg PO DAILY 08/01/20 09/14/20 History Losartan Potassium [Cozaar] 50 mg PO PC-SUPPER 08/01/20 09/14/20 History Metoprolol Tartrate [Lopressor] 25 mg PO BID 08/01/20 09/14/20 History Aspirin EC [Ecotrin Low Dose] 81 mg PO DAILY 09/19/20 09/19/20 History Allergies Allergy/AdvReac Type Severity Reaction Status Date / Time Penicillins Allergy Rash/Hives Verified 09/19/20 05:55 Physical Exam Vitals: Vital Signs Temp Pulse Pulse Pulse Resp BP BP 09/19/20 18:00 99 22 09/19/20 17:45 101 H 31 H 09/19/20 17:30 91 22 09/19/20 17:15 92 21 09/19/20 17:00 36.1 F L 91 20 09/19/20 16:45 89 21 09/19/20 16:30 89 21 09/19/20 16:15 89 19 09/19/20 16:00 36 F L 89 20 09/19/20 15:45 89 20 09/19/20 15:30 89 89 21 09/19/20 15:15 89 17 09/19/20 06:34 89 16 131/98 09/19/20 06:31 96.8 F L 93 16 146/105 Pulse Ox 09/19/20 18:00 95 09/19/20 17:45 94 L 09/19/20 17:30 97 09/19/20 17:15 96 09/19/20 17:00 97 09/19/20 16:45 97 09/19/20 16:30 97 09/19/20 16:15 96 09/19/20 16:00 95 09/19/20 15:45 95 09/19/20 15:30 96 09/19/20 15:15 95 09/19/20 06:34 97 09/19/20 06:31 98 Intake and Output 09/19/20 09/19/20 09/19/20 06:59 14:59 22:59 Intake Total 533 55 6754.405 Output Total 3120 340 Balance 100 -3088 1003.405 Intake: IV 783 29 0959.20 ACETAMINOPHEN IV (For NPO 100 ) 1,000 mg In Empty Bag 1 bag @ 400 mls/hr IVPB Q6H JAMESON Rx#:[id number] Albumin Human 5% 250 ml 750 In Empty Bag 1 bag @ 250 mls/hr IVPB ONCE STA Rx#: [id number] Milrinone-D5w Pmx 20 mg 50.20 In Dextrose/Water 1 100ml .bag @ 0.3 MCG/KG/MIN 10. 043 mls/hr IV .Q9H58M JAMESON Rx#:[id number] Sodium Chloride 0.9% 1, 250 000 ml @ 50 mls/hr IV . Q20H JAMESON Rx#:[id number] ceFAZolin 2 gm In Sodium 100 Chloride 0.9% 50 ml @ 100 mls/hr IVPB Q8HR JAMESON Rx# :[id number] Intake, IV Titration 93.205 Amount Insulin Regular 100 unit 11.817 In Sodium Chloride 0.9% 100 ml @ Per Protocol IV .Q0M JAMESON Rx#:[id number] Norepinephrine 4 mg In 15.943 Sodium Chloride 0.9% 250 ml @ 0.05 MCG/KG/MIN 21. 257 mls/hr IV .[id number] JAMESON Rx#:[id number] propofoL 1,000 mg In 65.445 Empty Bag 1 bag @ Titrate IV .Q0M JAMESON Rx#: [id number] Output: Chest Tube Drainage 140 Bilateral Mediastinal 140 Right Anterior Chest 0 Urine 620 200 Estimated Blood Loss 2500 Other: Voiding Method Indwelling Catheter ABP, PAP, CO, CI - Last 8 Hours Arterial Blood Pressure 118/59 Arterial Blood Pressure 147/64 Arterial Blood Pressure 123/66 Arterial Blood Pressure 117/65 Arterial Blood Pressure 115/64 Arterial Blood Pressure 118/65 Arterial Blood Pressure 110/63 Arterial Blood Pressure 110/63 Arterial Blood Pressure 122/67 Arterial Blood Pressure 86/52 Arterial Blood Pressure 117/64 Arterial Blood Pressure 111/62 Pulmonary Artery Pressure 34/19 Pulmonary Artery Pressure 88/17 Pulmonary Artery Pressure 38/24 Pulmonary Artery Pressure 39/23 Pulmonary Artery Pressure 41/24 Pulmonary Artery Pressure 39/24 Pulmonary Artery Pressure 40/25 Pulmonary Artery Pressure 38/26 Pulmonary Artery Pressure 36/24 Pulmonary Artery Pressure 40/26 Pulmonary Artery Pressure 43/7 Cardiac Output 5.2 Cardiac Output 4.9 Cardiac Output 4.8 Cardiac Index 2.2 Cardiac Index 2.1 Cardiac Index 2.1 Gen. appearance, comfortable intubated sedated Head exam was generally normal. There was no scleral icterus or corneal arcus. Mucous membranes were moist. Neck was supple and without jugular venous distension, thyromegaly, or carotid bruits. Carotids were easily palpable bilaterally. There was no adenopathy.The patient has a right [place]-Hoa catheter in place Lungs were clear to auscultation and percussion, and with normal diaphragmatic excursion. No wheezes or rales were noted. the patient has a right pleural and his sternal chest tube are both of them are in place. Heart sounds are regular, positive S1-S2 the patient has a right. Sternum is stable clean and intact. Abdominal exam revealed normal bowel sounds. The abdomen was soft, non-tender, and without masses, organomegaly, or appreciable enlargement of the abdominal aorta. Examination of the extremities revealed easily palpable radial, femoral and pedal pulses. There was no cyanosis, clubbing or edema. Examination of the skin revealed no evidence of significant rashes, suspicious appearing nevi or other concerning lesions. Neurologically the patient is sedated, comfortable likely distress. Results - Laboratory Findings CBC and BMP: 09/19/20 17:55 09/19/20 15:00 ABG ABG pH 7.29 (7.35-7.45) L 09/19/20 15:25 ABG pCO2 52 mmHg (35-45) H 09/19/20 15:25 ABG pO2 91 mmHg (83-108) 09/19/20 15:25 ABG O2 Saturation 94.8 % (94-97) 09/19/20 15:25 PT/INR, D-dimer PT 11.8 sec (9.0-12.0) 09/19/20 15:00 INR 1.2 (<1.2) H 09/19/20 15:00 Abnormal lab findings: Abnormal Labs 09/14/20 09/19/20 09/19/20 09:00 06:28 08:25 WBC Plt Count Neutrophils # Lymphocytes # Monocytes # INR ABG pH ABG pCO2 ABG pO2 154 H ABG HCO3 26 H ABG Total CO2 27 H ABG O2 Saturation 99.0 H ABG Potassium ABG Ionized Calcium ABG Glucose Hemoglobin Sodium Chloride Glucose POC Glucose (mg/dL) 100 H Magnesium Total Bilirubin AST Total Protein Albumin Arterial Blood Potassium Arterial Blood Glucose Crossmatch See Detail 09/19/20 09/19/20 09/19/20 09:41 10:15 10:47 WBC Plt Count Neutrophils # Lymphocytes # Monocytes # INR ABG pH 7.34 L 7.33 L ABG pCO2 46 H 46 H ABG pO2 180 H 419 H 317 H ABG HCO3 ABG Total CO2 26 H 26 H 25 H ABG O2 Saturation 99.1 H 99.6 H 99.7 H ABG Potassium 4.8 H 5.7 H ABG Ionized Calcium 4.4 L 4.3 L ABG Glucose 105 H 163 H Hemoglobin 12.4 L 11.1 L Sodium Chloride Glucose POC Glucose (mg/dL) Magnesium Total Bilirubin AST Total Protein Albumin Arterial Blood Potassium 4.8 H 5.7 H Arterial Blood Glucose 105 H 163 H Crossmatch 09/19/20 09/19/20 09/19/20 11:14 15:00 15:00 WBC 14.6 H Plt Count 124 L Neutrophils # 12.2 H Lymphocytes # Monocytes # 1.1 H INR 1.2 H ABG pH 7.21 L ABG pCO2 65 H ABG pO2 325 H ABG HCO3 26 H ABG Total CO2 28 H ABG O2 Saturation 99.4 H ABG Potassium 5.9 H ABG Ionized Calcium 4.4 L ABG Glucose 196 H Hemoglobin 12.0 L Sodium Chloride Glucose POC Glucose (mg/dL) Magnesium Total Bilirubin AST Total Protein Albumin Arterial Blood Potassium 5.9 H Arterial Blood Glucose 196 H Crossmatch 09/19/20 09/19/20 09/19/20 15:00 15:10 15:25 WBC Plt Count Neutrophils # Lymphocytes # Monocytes # INR ABG pH 7.29 L ABG pCO2 52 H ABG pO2 ABG HCO3 ABG Total CO2 26 H ABG O2 Saturation ABG Potassium ABG Ionized Calcium ABG Glucose Hemoglobin Sodium 136 L Chloride 108 H Glucose 142 H POC Glucose (mg/dL) 150 H Magnesium 2.6 H Total Bilirubin 1.4 H AST 163 H Total Protein 5.4 L Albumin 3.2 L Arterial Blood Potassium Arterial Blood Glucose Crossmatch 09/19/20 09/19/20 09/19/20 15:30 16:35 17:22 WBC Plt Count Neutrophils # Lymphocytes # Monocytes # INR ABG pH ABG pCO2 ABG pO2 ABG HCO3 ABG Total CO2 ABG O2 Saturation ABG Potassium ABG Ionized Calcium ABG Glucose Hemoglobin Sodium Chloride Glucose POC Glucose (mg/dL) 150 H 159 H 168 H Magnesium Total Bilirubin AST Total Protein Albumin Arterial Blood Potassium Arterial Blood Glucose Crossmatch 09/19/20 09/19/20 17:55 18:12 WBC 13.9 H Plt Count 133 L Neutrophils # 12.3 H Lymphocytes # 0.7 L Monocytes # INR ABG pH ABG pCO2 ABG pO2 ABG HCO3 ABG Total CO2 ABG O2 Saturation ABG Potassium ABG Ionized Calcium ABG Glucose Hemoglobin Sodium Chloride Glucose POC Glucose (mg/dL) 160 H Magnesium Total Bilirubin AST Total Protein Albumin Arterial Blood Potassium Arterial Blood Glucose Crossmatch - Diagnostic Findings Chest x-ray: image reviewed Assessment and Plan Plan: 1 valve or heart disease with severe mitral regurgitation and tricuspid regurgitation post mitral valve replacement and tricuspid valve repair. The patient is postop day #0.tthe patient is currently on inotropic combination of milrinone and norepinephrine infusion. Adequate cardiac output. CVP is running low at 4 with a lower PA diastolic pressure and the patient is a need of volume. 2 post thoracotomy, the patient is currently intubated on a mechanical ventilator sedated in the chest x-ray showing adequate positioning of the orotracheal tube. The patient has a right pleural and mediastinal chest tube are both of them are in place and output has been noted. 3atrial fibrillation, history of current rhythm is sinus 4 hypertension 5 hypothyroidism 6 COPD 7 inguinal hernia Plan Continue ventilator support and the necessity ventilator changes were done Continue inotropes with a combination of norepinephrine and milrinone and the patient is in need of volume. CVP is low and the blood pressures running slightly on the lower side and the patient will be given IV fluids/coloids/cr ystalloids. This will be coordinated with cardiothoracic surgery. monitor the output of the chest tube Switch this patient to Precedex Wean the patient off sedation Check weaning parametersat the later stage once more awake and consider extubation within the 6 hour window we'll continue to follow
[2020-09-19 20:10] LABS: Glucose,Whole Blood 126 mg/dL (75-99)
[2020-09-19] MEDS: HEPARIN SODIUM,PORCINE 5,000 UNIT/ML 1 ML VIAL SQ SCH (20:25)
[2020-09-19 21:05] LABS: Glucose,Whole Blood 119 mg/dL (75-99)
[2020-09-19] MEDS: AMIODARONE 300 MG in DEXTROSE 5% IN WATER 250 ML IV SCH ×2 (21:44)
[2020-09-19 21:55] LABS: Glucose,Whole Blood 110 mg/dL (75-99)
[2020-09-19] MEDS: DEXTROSE 5% IN WATER 100 ML with AMIODARONE 150 MG IV PRN (22:48)
[2020-09-19 23:00] LABS: Glucose,Whole Blood 170 mg/dL (75-99)
[2020-09-19] MEDS: HYDROcodone/APAP 5-325MG 1 EACH TAB PO PRN (23:43)
[2020-09-19 23:54] LABS: Glucose,Whole Blood 156 mg/dL (75-99)
[2020-09-20 01:14] LABS: Glucose,Whole Blood 141 mg/dL (75-99)
[2020-09-20] MEDS: HEPARIN SODIUM,PORCINE 5,000 UNIT/ML 1 ML VIAL SQ SCH ×3 (01:14→16:31)
[2020-09-20] MEDS: HYDROcodone/APAP 5-325MG 1 EACH TAB PO PRN ×5 (01:50→18:58)
[2020-09-20 01:54] LABS: Glucose,Whole Blood 141 mg/dL (75-99)
[2020-09-20 03:12] LABS: Glucose,Whole Blood 183 mg/dL (75-99)
[2020-09-20 03:54] LABS: Glucose,Whole Blood 170 mg/dL (75-99)
[2020-09-20] MEDS: DEXTROSE 5% IN WATER 100 ML with AMIODARONE 150 MG IV PRN (04:08)
[2020-09-20 05:01] LABS: Glucose,Whole Blood 173 mg/dL (75-99)
[2020-09-20] MEDS: KETOROLAC 15 MG/ML 1 ML VIAL IVP SCH ×3 (05:06→17:38)
[2020-09-20] MEDS: LEVOTHYROXINE 50 MCG TAB PO SCH (05:07)
[2020-09-20 05:34] LABS: Basophils % (A) 0 %; Eosinophils % (A) 0 %; HCT 33.1 % (39.0-53.0); HGB 11.6 gm/dL (13.0-17.5); Lymphocytes # (A) 0.6 k/uL (1.0-4.8); Lymphocytes % (A) 6 %; MCHC 35.1 g/dL (31.0-37.0); MCV 91.2 fL (80.0-100.0); Mean Platelet Volume 8.2; Monocytes # (A) 0.7 k/uL (0-1.0); Monocytes % (A) 6 %; Neutrophils # (A) 9.4 k/uL (1.3-7.7); Neutrophils % (A) 87 %; Platelet Count 115 k/uL (150-450); RBC 3.63 m/uL (4.30-5.90); RDW 13.3 % (11.5-15.5); WBC 10.8 k/uL (3.8-10.6)
[2020-09-20 05:39] LABS: Ionized Calcium 4.9 mg/dL (4.5-5.3)
[2020-09-20] MEDS: MILRINONE-D5W PMX 20 MG in DEXTROSE/WATER 1 100ML.BAG IV SCH ×2 (05:44→08:30)
[2020-09-20 05:51] LABS: Glucose,Whole Blood 149 mg/dL (75-99)
[2020-09-20 05:59] LABS: Albumin 3.4 g/dL (3.5-5.0); Calcium 8.4 mg/dL (8.4-10.2); Magnesium 1.9 mg/dL (1.6-2.3); Potassium 4.4 mmol/L (3.5-5.1); Total Protein 5.5 g/dL (6.3-8.2)
[2020-09-20] MEDS: INSULIN REGULAR 100 UNIT in SODIUM CHLORIDE 0.9% 100 ML IV SCH (06:32)
[2020-09-20] MEDS: MAGNESIUM SULFATE-D5W PMX 1 GM in DEXTROSE/WATER 1 100ML.BAG IVPB SCH ×2 (06:36→09:23)
[2020-09-20 06:58] LABS: Glucose,Whole Blood 131 mg/dL (75-99)
[2020-09-20 07:20] LABS: INR 1.2 (<1.2); Prothrombin Time 11.8 sec (9.0-12.0)
[2020-09-20 08:09] LABS: Glucose,Whole Blood 129 mg/dL (75-99)
--- NOTE | 2020-09-20 08:13 | XR ---
EXAMINATION TYPE: XR chest 1V portable DATE OF EXAM: 09/20/2020 COMPARISON: Prior chest x-ray 09/19/2020 HISTORY: Postop cardiac surgery TECHNIQUE: Single frontal view of the chest is obtained. FINDINGS: Patient is post median sternotomy, atrial appendage clipping placement, heart valve replac ement. Median sternal drains, right chest tube, right jugular central venous catheter are again noted . Endotracheal tube and NG tube have been removed. Minimal right apical pneumothorax is present. Ther e are overlying artifacts. Retrocardiac density obscures the left hemidiaphragm. Heart is stable. Aor ta is dense. Patchy basilar density noted bilaterally. IMPRESSION: Small right apical pneumothorax. Left lower lobe atelectasis and possible associated eff usion. There may be associated atelectasis.
[2020-09-20] MEDS: IPRATROPIUM-ALBUTEROL 3 ML NEB INHALATION SCH ×4 (08:25→21:01)
[2020-09-20] MEDS: ASPIRIN 325 MG TAB PO SCH (08:29)
[2020-09-20] MEDS: CLOPIDOGREL 75 MG TAB PO SCH (08:29)
[2020-09-20] MEDS: ATORVASTATIN 40 MG TAB PO SCH (08:29)
[2020-09-20] MEDS ORDERED: FUROSEMIDE 10 MG/ML 2 ML VIAL IV STA (08:37)
[2020-09-20] MEDS ORDERED: METOPROLOL TARTRATE 12.5 MG TAB PO SCH (09:00)
[2020-09-20] MEDS ORDERED: bisacodyL 10 MG SUPP RECTAL PRN (09:00)
[2020-09-20] MEDS ORDERED: PANTOPRAZOLE 40 MG/10 ML VIAL IVP SCH (09:00)
[2020-09-20] MEDS ORDERED: MAGNESIUM HYDROXIDE 2,400 MG/10 ML CUP PO PRN (09:00)
[2020-09-20] MEDS: CLEVIDIPINE BUTYRATE 25 MG in EMPTY BAG 1 BAG IV SCH ×2 (09:08→22:31)
[2020-09-20] MEDS: METOPROLOL TARTRATE 25 MG TAB PO SCH ×2 (09:17→20:15)
[2020-09-20] MEDS: AMIODARONE 200 MG TAB PO SCH ×2 (09:17→20:16)
--- NOTE | 2020-09-20 10:06 | CONS ---
CONSULTATION Mr. Galloway is a 64-year-old male who has underwent mitral valve repair. He was evaluated recently in the office with evidence of progressive dyspnea on exertion and fatigue with evidence of PND and orthopnea, was noted to be in atrial fibrillation, had evidence of severe mitral regurgitation. He subsequently underwent a transesophageal echocardiogram that showed an ejection fraction of 50% to 55% with severe prolapse of the posterior mitral valve leaflet and severe eccentric mitral regurgitation with mild tricuspid regurgitation. His coronary angiography showed mild coronary artery disease with mild to moderate pulmonary hypertension. He yesterday underwent a mitral valve repair with MAZE procedure and clipping of the left atrial appendage and tricuspid valve repair. He is awake, alert, sitting up in the chair. He is complaining of some soreness in the chest. He is in atrial fibrillation with occasional sinus beats. He continues to be on IV amiodarone. Hemodynamically stable. He has no evidence of ventricular tachycardia or hypotension. His coronary risk factors remarkable for history of hypertension. He is nondiabetic, nonsmoker. MEDICATIONS: Prior to admission included aspirin, Eliquis 5 mg twice a day, metoprolol tartrate 25 mg twice a day, losartan 50 mg daily, levothyroxine, Lasix, and albuterol. REVIEW OF SYSTEMS: RESPIRATORY SYSTEM: He had dyspnea on exertion. No recent wheezing, cough. GI SYSTEM: No recent GI bleeding. He was mildly nauseated this morning. SYSTEM: No dysuria, hematuria. NERVOUS SYSTEM: No stroke or seizure. PHYSICAL EXAMINATION: A 64-year-old male, alert, oriented, in no apparent distress. Blood pressure 119/50 with a heart rate in the 80s. HEAD: Normocephalic. EYES: Sclerae nonicteric. NECK: Good upstroke, no bruit, no jugular venous distention. LUNGS: With decreased breath sounds at the bases, no wheezes. HEART: Regular rate and rhythm, S1, S2. No S3. No rub appreciated. ABDOMEN: Soft, nontender, positive bowel sounds, no organomegaly. EXTREMITIES: No significant edema. LAB DATA: Revealed a chest x-ray that showed evidence of effusion on the left side, BUN and creatinine 16 and 1.02, potassium 4.4, hemoglobin of 11.6. IMPRESSION: 1. Status post mitral valve repair and tricuspid valve repair with MAZE procedure and ligation of the left atrial appendage. 2. Atrial fibrillation, preoperatively. 3. Hypertension. RECOMMENDATION: From the cardiac standpoint, I would recommend to continue present therapy. Once his wires are removed, I will stop his aspirin and Plavix and initiate treatment with the anticoagulation and if he remains in atrial fibrillation in 4 to 6 weeks, then cardioversion can be performed at that time. In the meantime, will continue incentive spirometry, increase his activity. YONNY / KATIEN: [id number] /
[2020-09-20 10:17] LABS: Glucose,Whole Blood 105 mg/dL (75-99)
[2020-09-20] MEDS: AMIODARONE 300 MG in DEXTROSE 5% IN WATER 250 ML IV SCH ×4 (10:22→18:58)
[2020-09-20 11:04] VITALS: BMI 33.7
[2020-09-20 12:01] LABS: Glucose,Whole Blood 130 mg/dL (75-99)
[2020-09-20 12:58] LABS: Glucose,Whole Blood 190 mg/dL (75-99)
[2020-09-20 14:43] LABS: Glucose,Whole Blood 110 mg/dL (75-99)
[2020-09-20 15:11] LABS: Glucose,Whole Blood 104 mg/dL (75-99)
--- NOTE | 2020-09-20 15:32 | P.PN ---
Subjective Progress Note Date: 09/20/20 Principal diagnosis: Severe mitral valve regurgitation with prolapse of P2, moderate tricuspid valve regurgitation, mild aortic valve regurgitation. Past medical history significa nt for hypertension, hyperlipidemia, hypothyroidism, persistent atrial fibrillation with dilated atria, mild left ventricular dysfunction and previous tobacco dependence. POD #1 complex mitral valve repair with construction of 3 pairs of chelsea-chord to P2 with complete ring annuloplasty using a 38 mm physio-2 ring. Tricuspid valve repair using a 30 mm MC 3 ring. Full biatrial maze procedure using radiofrequency and cryoablation. Exclusion of the left atrial appendage using a 40 mm Atriclip. Intraoperative transesophageal echocardiogram and epi-aortic scanning. Postoperative acute blood loss anemia, expected, dilutional. The patient is seen in follow-up today at his bedside in the intensive care unit. Currently he is sitting up to the bedside chair, is awake, alert and oriented 3 and is in no acute distress. He denies any complaints of shortness of breath although is complaining of some surgical type pain to his chest tube insertion sites. Right IJ Cordis with Hallwood-Hoa catheter remains in place with current hemodynamics showing a cardiac output of 7.4, cardiac index 3.2, PA pressures 56/13 and CVP 9 mmHg. Oxygen saturations are 94% on 5 L nasal cannula and he is achieving 1000 mL on his incentive spirometry with encouragement. Mediastinal and right pleural chest tubes remained in place to low continuous wall suction -20 cm H2O. No air leak is present. Draining thin serosanguineous drainage. Mediastinal chest tubes drained 170 mL output in the last 8 hours, and 780 mL output since surgery. Right pleural chest tube drained 75 mL output since surgery. Primacor drip remains infusing at 0.3 mcg/kg/m. Bedside telemetry showing atrial fibrillation heart rate 80 ppm, amiodarone drip remains infusing at 0.5 mg/m. Objective - Vital Signs Vital signs: Vital Signs Temp 37.4 F L 09/20/20 12:00 Pulse 78 09/20/20 14:30 Resp 19 09/20/20 14:30 BP 106/71 09/20/20 14:30 Pulse Ox 96 09/20/20 14:30 Intake & Output 09/19/20 09/20/20 09/20/20 18:59 06:59 18:59 Intake Total 942.773 7985.394 1262.240 Output Total 3435 965 620 Balance -2616.446 1488.394 642.240 Weight 119 kg 119 kg Intake: IV 722.16 1789.04 613 ACETAMINOPHEN IV (For NPO 100 ) 1,000 mg In Empty Bag 1 bag @ 400 mls/hr IVPB Q6H [facility] Rx#:[id number] Albumin Human 5% 250 ml 250 750 In Empty Bag 1 bag @ 250 mls/hr IVPB ONCE STA Rx#: [id number] CO/CI 280 50 Milrinone-D5w Pmx 20 mg 40.16 10.04 In Dextrose/Water 1 100ml .bag @ 0.3 MCG/KG/MIN 10. 043 mls/hr IV .Q9H58M [facility] Rx#:[id number] Pressure bags 0.9 99 63 Sodium Chloride 0.9% 1, 200 600 400 000 ml @ 50 mls/hr IV . Q20H [facility] Rx#:[id number] ceFAZolin 2 gm In Sodium 100 50 100 Chloride 0.9% 50 ml @ 100 mls/hr IVPB Q8HR [facility] Rx# :[id number] Intake, IV Titration 96.394 664.354 399.240 Amount ACETAMINOPHEN IV (For NPO 100 ) 1,000 mg In Empty Bag 1 bag @ 400 mls/hr IVPB Q6H [facility] Rx#:[id number] Amiodarone 300 mg In 250 Dextrose 5% in Water 250 ml @ 0.5 MG/MIN 25 mls/hr IV .Q10H [facility] Rx#: [id number] Amiodarone 360 mg In 200 Dextrose 5% in Water 200 ml @ 1 MG/MIN 33.333 mls/ hr IV .Q6H PRN Rx#: [id number] Dextrose 5% in Water 100 100 ml @ 618 mls/hr IV .Q10M PRN with Amiodarone 150 mg Rx#:[id number] Insulin Regular 100 unit 11.817 69.657 21.454 In Sodium Chloride 0.9% 100 ml @ Per Protocol IV .Q0M [facility] Rx#:[id number] Magnesium Sulfate-D5w Pmx 100 1 gm In Dextrose/Water 1 100ml.bag @ 100 mls/hr IVPB Q1H [facility] Rx#: [id number] Milrinone-D5w Pmx 20 mg 100 27.786 In Dextrose/Water 1 100ml .bag @ 0.3 MCG/KG/MIN 10. 043 mls/hr IV .Q9H58M [facility] Rx#:[id number] Norepinephrine 4 mg In 19.132 88.002 Sodium Chloride 0.9% 250 ml @ 0.05 MCG/KG/MIN 21. 257 mls/hr IV .[id number] [facility] Rx#:[id number] propofoL 1,000 mg In 65.445 6.695 Empty Bag 1 bag @ Titrate IV .Q0M [facility] Rx#: [id number] Oral 250 Output: Chest Tube Drainage 140 495 205 Bilateral Mediastinal 140 430 170 Right Anterior Chest 0 65 35 Urine 795 470 415 Estimated Blood Loss 2500 Other: Voiding Method Indwelling Catheter Indwelling Catheter Indwelling Catheter ABP, PAP, CO, CI - Last Documented Arterial Blood Pressure 103/55 Pulmonary Artery Pressure 32/14 Cardiac Output 5 Cardiac Index 2.2 - Constitutional General appearance: Present: cooperative, no acute distress, obese - EENT Eyes: Present: normal appearance. Absent: scleral icterus ENT: Present: hearing grossly normal - Neck Details: Neck supple, no JVD, no lymphadenopathy. Right IJ Cordis with Hallwood-Hoa catheter in place. - Respiratory Details: Lungs sounds essentially clear throughout, diminished to his bilateral bases. Respirations are symmetrical and nonlabored. No wheezes, rhonchi or crackles. Oxygen saturation are 94% on 5 L nasal cannula. Achieving 1000 mL on his incentive spirometry. Mediastinal and right pleural chest tubes remained in place to low continuous wall suction -20 cm H2O. No air leak is present. Draining thin serosanguineous drainage. Mediastinal chest tubes drained 170 mL output in the last 8 hours, and 780 mL output since surgery. - Cardiovascular Details: Irregular rhythm with controlled rate. S1 and S2 present, negative for S3, gallop or murmur. Sternum is stable. Bedside telemetry showing atrial fibrillation heart rate 80 BPM. No edema present. Atrial and ventricular epicardial pacemaker wires in place and connected to the Bedside pacemaker generator on an AAI 50. Right IJ Cordis with Hallwood-Hoa catheter in place, current hemodynamic showing a cardiac output 7.4, cardiac index 3.2, PA pressures 56/13 and CVP 8 mmHg. Knee-high AURORA hose and sequential compression devices in place was bilateral lower extremities. Heart hugger is in place and he is demonstrating appropriate use. No edema present. - Gastrointestinal Gastrointestinal Comment(s): Abdomen is soft, nontender and nondistended. Hypoactive bowel sounds present in all 4 abdominal quadrants. No guarding or rigidity. No megaly appreciated. Tolerating oral intake. - Genitourinary Genitourinary Comment(s): Mora catheter for accurate I&O. Draining clear geneva urine. - Integumentary Integumentary Comment(s): Skin is warm and dry. No clubbing or cyanosis is present. Midline sternal incision is clean, dry and approximated. No drainage or redness is present. Dressing is clean, dry and intact. - Neurologic Neurologic: Present: CNII-XII intact - Musculoskeletal Musculoskeletal: Present: gait normal, generalized weakness, strength equal bilaterally - Psychiatric Psychiatric: Present: A&O x's 3, appropriate affect, intact judgment & insight - Allied health notes Allied health notes reviewed: nursing - Labs CBC & Chem 7: 09/20/20 05:00 09/20/20 05:00 Labs: Abnormal Lab Results - Last 24 Hours (Table) 09/14/20 09/19/20 09/19/20 Range/Units 09:00 08:25 09:41 WBC (3.8-10.6) k/uL RBC (4.30-5.90) m/uL Hgb (13.0-17.5) gm/dL Hct (39.0-53.0) % Plt Count (150-450) k/uL Neutrophils # (1.3-7.7) k/uL Lymphocytes # (1.0-4.8) k/uL Monocytes # (0-1.0) k/uL INR (<1.2) ABG pH 7.34 L (7.35-7.45) ABG pCO2 46 H (35-45) mmHg ABG pO2 154 H 180 H (83-108) mmHg ABG HCO3 26 H (21-25) mmol/L ABG Total CO2 27 H 26 H (19-24) mmol/L ABG O2 Saturation 99.0 H 99.1 H (94-97) % ABG Potassium (3.4-4.5) mmol/L ABG Ionized Calcium (4.5-5.3) mg/dL ABG Glucose 105 H (75-99) mg/dL Hemoglobin (13.0-17.5) gm/dL Sodium (137-145) mmol/L Chloride (98-107) mmol/L Carbon Dioxide (22-30) mmol/L Glucose (74-99) mg/dL POC Glucose (mg/dL) (75-99) mg/dL Magnesium (1.6-2.3) mg/dL Total Bilirubin (0.2-1.3) mg/dL AST (17-59) U/L Total Protein (6.3-8.2) g/dL Albumin (3.5-5.0) g/dL Arterial Blood Potassium (3.4-4.5) mmol/L Arterial Blood Glucose 105 H (75-99) mg/dL Crossmatch See Detail 09/19/20 09/19/20 09/19/20 Range/Units 10:15 10:47 11:14 WBC (3.8-10.6) k/uL RBC (4.30-5.90) m/uL Hgb (13.0-17.5) gm/dL Hct (39.0-53.0) % Plt Count (150-450) k/uL Neutrophils # (1.3-7.7) k/uL Lymphocytes # (1.0-4.8) k/uL Monocytes # (0-1.0) k/uL INR (<1.2) ABG pH 7.33 L 7.21 L (7.35-7.45) ABG pCO2 46 H 65 H (35-45) mmHg ABG pO2 419 H 317 H 325 H (83-108) mmHg ABG HCO3 26 H (21-25) mmol/L ABG Total CO2 26 H 25 H 28 H (19-24) mmol/L ABG O2 Saturation 99.6 H 99.7 H 99.4 H (94-97) % ABG Potassium 4.8 H 5.7 H 5.9 H (3.4-4.5) mmol/L ABG Ionized Calcium 4.4 L 4.3 L 4.4 L (4.5-5.3) mg/dL ABG Glucose 163 H 196 H (75-99) mg/dL Hemoglobin 12.4 L 11.1 L 12.0 L (13.0-17.5) gm/dL Sodium (137-145) mmol/L Chloride (98-107) mmol/L Carbon Dioxide (22-30) mmol/L Glucose (74-99) mg/dL POC Glucose (mg/dL) (75-99) mg/dL Magnesium (1.6-2.3) mg/dL Total Bilirubin (0.2-1.3) mg/dL AST (17-59) U/L Total Protein (6.3-8.2) g/dL Albumin (3.5-5.0) g/dL Arterial Blood Potassium 4.8 H 5.7 H 5.9 H (3.4-4.5) mmol/L Arterial Blood Glucose 163 H 196 H (75-99) mg/dL Crossmatch 09/19/20 09/19/20 09/19/20 Range/Units 15:00 15:00 15:00 WBC 14.6 H (3.8-10.6) k/uL RBC (4.30-5.90) m/uL Hgb (13.0-17.5) gm/dL Hct (39.0-53.0) % Plt Count 124 L (150-450) k/uL Neutrophils # 12.2 H (1.3-7.7) k/uL Lymphocytes # (1.0-4.8) k/uL Monocytes # 1.1 H (0-1.0) k/uL INR 1.2 H (<1.2) ABG pH (7.35-7.45) ABG pCO2 (35-45) mmHg ABG pO2 (83-108) mmHg ABG HCO3 (21-25) mmol/L ABG Total CO2 (19-24) mmol/L ABG O2 Saturation (94-97) % ABG Potassium (3.4-4.5) mmol/L ABG Ionized Calcium (4.5-5.3) mg/dL ABG Glucose (75-99) mg/dL Hemoglobin (13.0-17.5) gm/dL Sodium 136 L (137-145) mmol/L Chloride 108 H (98-107) mmol/L Carbon Dioxide (22-30) mmol/L Glucose 142 H (74-99) mg/dL POC Glucose (mg/dL) (75-99) mg/dL Magnesium 2.6 H (1.6-2.3) mg/dL Total Bilirubin 1.4 H (0.2-1.3) mg/dL AST 163 H (17-59) U/L Total Protein 5.4 L (6.3-8.2) g/dL Albumin 3.2 L (3.5-5.0) g/dL Arterial Blood Potassium (3.4-4.5) mmol/L Arterial Blood Glucose (75-99) mg/dL Crossmatch 09/19/20 09/19/20 09/19/20 Range/Units 15:10 15:25 15:30 WBC (3.8-10.6) k/uL RBC (4.30-5.90) m/uL Hgb (13.0-17.5) gm/dL Hct (39.0-53.0) % Plt Count (150-450) k/uL Neutrophils # (1.3-7.7) k/uL Lymphocytes # (1.0-4.8) k/uL Monocytes # (0-1.0) k/uL INR (<1.2) ABG pH 7.29 L (7.35-7.45) ABG pCO2 52 H (35-45) mmHg ABG pO2 (83-108) mmHg ABG HCO3 (21-25) mmol/L ABG Total CO2 26 H (19-24) mmol/L ABG O2 Saturation (94-97) % ABG Potassium (3.4-4.5) mmol/L ABG Ionized Calcium (4.5-5.3) mg/dL ABG Glucose (75-99) mg/dL Hemoglobin (13.0-17.5) gm/dL Sodium (137-145) mmol/L Chloride (98-107) mmol/L Carbon Dioxide (22-30) mmol/L Glucose (74-99) mg/dL POC Glucose (mg/dL) 150 H 150 H (75-99) mg/dL Magnesium (1.6-2.3) mg/dL Total Bilirubin (0.2-1.3) mg/dL AST (17-59) U/L Total Protein (6.3-8.2) g/dL Albumin (3.5-5.0) g/dL Arterial Blood Potassium (3.4-4.5) mmol/L Arterial Blood Glucose (75-99) mg/dL Crossmatch 09/19/20 09/19/20 09/19/20 Range/Units 16:35 17:22 17:55 WBC 13.9 H (3.8-10.6) k/uL RBC (4.30-5.90) m/uL Hgb (13.0-17.5) gm/dL Hct (39.0-53.0) % Plt Count 133 L (150-450) k/uL Neutrophils # 12.3 H (1.3-7.7) k/uL Lymphocytes # 0.7 L (1.0-4.8) k/uL Monocytes # (0-1.0) k/uL INR (<1.2) ABG pH (7.35-7.45) ABG pCO2 (35-45) mmHg ABG pO2 (83-108) mmHg ABG HCO3 (21-25) mmol/L ABG Total CO2 (19-24) mmol/L ABG O2 Saturation (94-97) % ABG Potassium (3.4-4.5) mmol/L ABG Ionized Calcium (4.5-5.3) mg/dL ABG Glucose (75-99) mg/dL Hemoglobin (13.0-17.5) gm/dL Sodium (137-145) mmol/L Chloride (98-107) mmol/L Carbon Dioxide (22-30) mmol/L Glucose (74-99) mg/dL POC Glucose (mg/dL) 159 H 168 H (75-99) mg/dL Magnesium (1.6-2.3) mg/dL Total Bilirubin (0.2-1.3) mg/dL AST (17-59) U/L Total Protein (6.3-8.2) g/dL Albumin (3.5-5.0) g/dL Arterial Blood Potassium (3.4-4.5) mmol/L Arterial Blood Glucose (75-99) mg/dL Crossmatch 09/19/20 09/19/20 09/19/20 Range/Units 18:12 19:22 20:09 WBC (3.8-10.6) k/uL RBC (4.30-5.90) m/uL Hgb (13.0-17.5) gm/dL Hct (39.0-53.0) % Plt Count (150-450) k/uL Neutrophils # (1.3-7.7) k/uL Lymphocytes # (1.0-4.8) k/uL Monocytes # (0-1.0) k/uL INR (<1.2) ABG pH (7.35-7.45) ABG pCO2 (35-45) mmHg ABG pO2 (83-108) mmHg ABG HCO3 (21-25) mmol/L ABG Total CO2 (19-24) mmol/L ABG O2 Saturation (94-97) % ABG Potassium (3.4-4.5) mmol/L ABG Ionized Calcium (4.5-5.3) mg/dL ABG Glucose (75-99) mg/dL Hemoglobin (13.0-17.5) gm/dL Sodium (137-145) mmol/L Chloride (98-107) mmol/L Carbon Dioxide (22-30) mmol/L Glucose (74-99) mg/dL POC Glucose (mg/dL) 160 H 141 H 126 H (75-99) mg/dL Magnesium (1.6-2.3) mg/dL Total Bilirubin (0.2-1.3) mg/dL AST (17-59) U/L Total Protein (6.3-8.2) g/dL Albumin (3.5-5.0) g/dL Arterial Blood Potassium (3.4-4.5) mmol/L Arterial Blood Glucose (75-99) mg/dL Crossmatch 09/19/20 09/19/20 09/19/20 Range/Units 21:03 21:54 22:59 WBC (3.8-10.6) k/uL RBC (4.30-5.90) m/uL Hgb (13.0-17.5) gm/dL Hct (39.0-53.0) % Plt Count (150-450) k/uL Neutrophils # (1.3-7.7) k/uL Lymphocytes # (1.0-4.8) k/uL Monocytes # (0-1.0) k/uL INR (<1.2) ABG pH (7.35-7.45) ABG pCO2 (35-45) mmHg ABG pO2 (83-108) mmHg ABG HCO3 (21-25) mmol/L ABG Total CO2 (19-24) mmol/L ABG O2 Saturation (94-97) % ABG Potassium (3.4-4.5) mmol/L ABG Ionized Calcium (4.5-5.3) mg/dL ABG Glucose (75-99) mg/dL Hemoglobin (13.0-17.5) gm/dL Sodium (137-145) mmol/L Chloride (98-107) mmol/L Carbon Dioxide (22-30) mmol/L Glucose (74-99) mg/dL POC Glucose (mg/dL) 119 H 110 H 170 H (75-99) mg/dL Magnesium (1.6-2.3) mg/dL Total Bilirubin (0.2-1.3) mg/dL AST (17-59) U/L Total Protein (6.3-8.2) g/dL Albumin (3.5-5.0) g/dL Arterial Blood Potassium (3.4-4.5) mmol/L Arterial Blood Glucose (75-99) mg/dL Crossmatch 09/19/20 09/20/20 09/20/20 Range/Units 23:53 01:12 01:53 WBC (3.8-10.6) k/uL RBC (4.30-5.90) m/uL Hgb (13.0-17.5) gm/dL Hct (39.0-53.0) % Plt Count (150-450) k/uL Neutrophils # (1.3-7.7) k/uL Lymphocytes # (1.0-4.8) k/uL Monocytes # (0-1.0) k/uL INR (<1.2) ABG pH (7.35-7.45) ABG pCO2 (35-45) mmHg ABG pO2 (83-108) mmHg ABG HCO3 (21-25) mmol/L ABG Total CO2 (19-24) mmol/L ABG O2 Saturation (94-97) % ABG Potassium (3.4-4.5) mmol/L ABG Ionized Calcium (4.5-5.3) mg/dL ABG Glucose (75-99) mg/dL Hemoglobin (13.0-17.5) gm/dL Sodium (137-145) mmol/L Chloride (98-107) mmol/L Carbon Dioxide (22-30) mmol/L Glucose (74-99) mg/dL POC Glucose (mg/dL) 156 H 141 H 141 H (75-99) mg/dL Magnesium (1.6-2.3) mg/dL Total Bilirubin (0.2-1.3) mg/dL AST (17-59) U/L Total Protein (6.3-8.2) g/dL Albumin (3.5-5.0) g/dL Arterial Blood Potassium (3.4-4.5) mmol/L Arterial Blood Glucose (75-99) mg/dL Crossmatch 09/20/20 09/20/20 09/20/20 Range/Units 03:10 03:53 04:59 WBC (3.8-10.6) k/uL RBC (4.30-5.90) m/uL Hgb (13.0-17.5) gm/dL Hct (39.0-53.0) % Plt Count (150-450) k/uL Neutrophils # (1.3-7.7) k/uL Lymphocytes # (1.0-4.8) k/uL Monocytes # (0-1.0) k/uL INR (<1.2) ABG pH (7.35-7.45) ABG pCO2 (35-45) mmHg ABG pO2 (83-108) mmHg ABG HCO3 (21-25) mmol/L ABG Total CO2 (19-24) mmol/L ABG O2 Saturation (94-97) % ABG Potassium (3.4-4.5) mmol/L ABG Ionized Calcium (4.5-5.3) mg/dL ABG Glucose (75-99) mg/dL Hemoglobin (13.0-17.5) gm/dL Sodium (137-145) mmol/L Chloride (98-107) mmol/L Carbon Dioxide (22-30) mmol/L Glucose (74-99) mg/dL POC Glucose (mg/dL) 183 H 170 H 173 H (75-99) mg/dL Magnesium (1.6-2.3) mg/dL Total Bilirubin (0.2-1.3) mg/dL AST (17-59) U/L Total Protein (6.3-8.2) g/dL Albumin (3.5-5.0) g/dL Arterial Blood Potassium (3.4-4.5) mmol/L Arterial Blood Glucose (75-99) mg/dL Crossmatch 09/20/20 09/20/20 09/20/20 Range/Units 05:00 05:00 05:00 WBC 10.8 H (3.8-10.6) k/uL RBC 3.63 L (4.30-5.90) m/uL Hgb 11.6 L (13.0-17.5) gm/dL Hct 33.1 L (39.0-53.0) % Plt Count 115 L (150-450) k/uL Neutrophils # 9.4 H (1.3-7.7) k/uL Lymphocytes # 0.6 L (1.0-4.8) k/uL Monocytes # (0-1.0) k/uL INR 1.2 H (<1.2) ABG pH (7.35-7.45) ABG pCO2 (35-45) mmHg ABG pO2 (83-108) mmHg ABG HCO3 (21-25) mmol/L ABG Total CO2 (19-24) mmol/L ABG O2 Saturation (94-97) % ABG Potassium (3.4-4.5) mmol/L ABG Ionized Calcium (4.5-5.3) mg/dL ABG Glucose (75-99) mg/dL Hemoglobin (13.0-17.5) gm/dL Sodium 134 L (137-145) mmol/L Chloride (98-107) mmol/L Carbon Dioxide 21 L (22-30) mmol/L Glucose 163 H (74-99) mg/dL POC Glucose (mg/dL) (75-99) mg/dL Magnesium (1.6-2.3) mg/dL Total Bilirubin (0.2-1.3) mg/dL AST 129 H (17-59) U/L Total Protein 5.5 L (6.3-8.2) g/dL Albumin 3.4 L (3.5-5.0) g/dL Arterial Blood Potassium (3.4-4.5) mmol/L Arterial Blood Glucose (75-99) mg/dL Crossmatch 09/20/20 09/20/20 09/20/20 Range/Units 05:49 06:57 08:08 WBC (3.8-10.6) k/uL RBC (4.30-5.90) m/uL Hgb (13.0-17.5) gm/dL Hct (39.0-53.0) % Plt Count (150-450) k/uL Neutrophils # (1.3-7.7) k/uL Lymphocytes # (1.0-4.8) k/uL Monocytes # (0-1.0) k/uL INR (<1.2) ABG pH (7.35-7.45) ABG pCO2 (35-45) mmHg ABG pO2 (83-108) mmHg ABG HCO3 (21-25) mmol/L ABG Total CO2 (19-24) mmol/L ABG O2 Saturation (94-97) % ABG Potassium (3.4-4.5) mmol/L ABG Ionized Calcium (4.5-5.3) mg/dL ABG Glucose (75-99) mg/dL Hemoglobin (13.0-17.5) gm/dL Sodium (137-145) mmol/L Chloride (98-107) mmol/L Carbon Dioxide (22-30) mmol/L Glucose (74-99) mg/dL POC Glucose (mg/dL) 149 H 131 H 129 H (75-99) mg/dL Magnesium (1.6-2.3) mg/dL Total Bilirubin (0.2-1.3) mg/dL AST (17-59) U/L Total Protein (6.3-8.2) g/dL Albumin (3.5-5.0) g/dL Arterial Blood Potassium (3.4-4.5) mmol/L Arterial Blood Glucose (75-99) mg/dL Crossmatch 09/20/20 09/20/20 09/20/20 Range/Units 10:05 12:00 12:56 WBC (3.8-10.6) k/uL RBC (4.30-5.90) m/uL Hgb (13.0-17.5) gm/dL Hct (39.0-53.0) % Plt Count (150-450) k/uL Neutrophils # (1.3-7.7) k/uL Lymphocytes # (1.0-4.8) k/uL Monocytes # (0-1.0) k/uL INR (<1.2) ABG pH (7.35-7.45) ABG pCO2 (35-45) mmHg ABG pO2 (83-108) mmHg ABG HCO3 (21-25) mmol/L ABG Total CO2 (19-24) mmol/L ABG O2 Saturation (94-97) % ABG Potassium (3.4-4.5) mmol/L ABG Ionized Calcium (4.5-5.3) mg/dL ABG Glucose (75-99) mg/dL Hemoglobin (13.0-17.5) gm/dL Sodium (137-145) mmol/L Chloride (98-107) mmol/L Carbon Dioxide (22-30) mmol/L Glucose (74-99) mg/dL POC Glucose (mg/dL) 105 H 130 H 190 H (75-99) mg/dL Magnesium (1.6-2.3) mg/dL Total Bilirubin (0.2-1.3) mg/dL AST (17-59) U/L Total Protein (6.3-8.2) g/dL Albumin (3.5-5.0) g/dL Arterial Blood Potassium (3.4-4.5) mmol/L Arterial Blood Glucose (75-99) mg/dL Crossmatch 09/20/20 Range/Units 14:41 WBC (3.8-10.6) k/uL RBC (4.30-5.90) m/uL Hgb (13.0-17.5) gm/dL Hct (39.0-53.0) % Plt Count (150-450) k/uL Neutrophils # (1.3-7.7) k/uL Lymphocytes # (1.0-4.8) k/uL Monocytes # (0-1.0) k/uL INR (<1.2) ABG pH (7.35-7.45) ABG pCO2 (35-45) mmHg ABG pO2 (83-108) mmHg ABG HCO3 (21-25) mmol/L ABG Total CO2 (19-24) mmol/L ABG O2 Saturation (94-97) % ABG Potassium (3.4-4.5) mmol/L ABG Ionized Calcium (4.5-5.3) mg/dL ABG Glucose (75-99) mg/dL Hemoglobin (13.0-17.5) gm/dL Sodium (137-145) mmol/L Chloride (98-107) mmol/L Carbon Dioxide (22-30) mmol/L Glucose (74-99) mg/dL POC Glucose (mg/dL) 110 H (75-99) mg/dL Magnesium (1.6-2.3) mg/dL Total Bilirubin (0.2-1.3) mg/dL AST (17-59) U/L Total Protein (6.3-8.2) g/dL Albumin (3.5-5.0) g/dL Arterial Blood Potassium (3.4-4.5) mmol/L Arterial Blood Glucose (75-99) mg/dL Crossmatch - Imaging and Cardiology Chest x-ray: report reviewed, image reviewed Assessment and Plan Assessment: 1. Severe mitral valve regurgitation, status post mitral valve repair 2. Moderate tricuspid valve regurgitation, status post tricuspid valve repair 3. Mild aortic valve regurgitation 4. History of hypertension 5. History of hyperlipidemia 6. Hypothyroidism 7. Persistent atrial fibrillation, status post modified Maze procedure and clipping of the left atrial appendage using a Atriclip 8. Mild left ventricular dysfunction 9. Previous tobacco dependence 10. Postoperative acute blood loss anemia, expected Plan: 1. Continue to maximize medical therapy with aspirin, Plavix and beta mukesh. Will increase metoprolol tartrate 25 mg by mouth twice a day. 2. Discontinue IV nitroglycerin drip. 3. Wean O2 as tolerated. Continue to encourage use of incentive spirometry 10 times every hour while awake. Bronchodilators per pulmonology/critical care management. 4. Will monitor daily labs and chest x-rays. Electrolytes replacement per protocol. 5. GI/DVT prophylaxis. Protonix switched to by mouth. 6. Pain control with current medication regimen. Toradol was added. 7. Diabetes/insulin management per Dr. Wan. 8. keep right IJ [place]-Hoa catheter, and Cordis in place for now. Keep Primacor drip infusing, decrease to 0.15 mcg/g/m. 9. Keep mediastinal and right pleural chest tubes for another 24 hours. 10. Keep Mora catheter for another 24 hours for strict accurate intake and output. 11. Daily weights using standup scale, no bed scale. 12. Lasix 20 mg IV 1 now. 13. Keep atrial and ventricular epicardial pacemaker wires in place and grounded. 14. Keep amiodarone drip infusing per protocol, we will start amiodarone 400 mg by mouth twice a day for atrial fibrillation prophylaxis. 15. Increase activity as tolerated, physical/occupational therapy consulted. Cardiac rehab consulted. 16. More recommendations to follow based on patient's clinical course. Nurse practitioner note has been reviewed by the physician. Signing provider agrees with the above documented findings, assessment and plan of care. Time with Patient: Greater than 30
--- NOTE | 2020-09-20 15:43 | P.PN ---
Subjective Progress Note Date: 09/20/20 this is a 64-year-old male patient who has valvular heart disease with severe m itral regurgitation. Tricuspid regurgitation and exertional dyspnea addition to chronic atrial fibrillation. The patient also has history of hypertension, hyperlipidemia, hypothyroidism and an inguinal hernia bilateral. He does have also symptoms obstructive sleep apnea although this has not been officially diagnosed. His preop ejection fraction was in the order of 50% based on the ALEXY and The Patient Severe Concentric LVH, Severe Mitral Regurgitation, [id number]-Hi-Wonwrzzs Aortic Regurgitation and Aortic Valve of 1.13 Cm Mild to Moderate Tricuspid Regurgitation. Based on his symptomatic valvular heart disease, the patient was taken to the operating room today and the patient underwent a mitral valve replacement and a tricuspid valve repair. The patient postop was brought into the intensive care unit for further evaluation and treatment. he patient arrived on a mechanical ventilator within assist-control mode at a rate of 12 with a tidal volume of 600 and FiO2 of 100% and a PEEP of 8. Initial blood gas showed a pH of 7.29 with a pCO2 of 52 and pO2 of 91. The this is a ventilator changes were done. The patient was admitted with Precedex. The patient had a cardiac index of 5.0 with a cardiac output of 11.5. He was on milrinone running at 0.3 g per KG per minute and norepinephrine infusion running at 0.05 g per KG per minute. the pulmonary artery pressures are 34/12. The patient is also on insulin drip at 6 units an hour and the patient is also on amiodarone drip at 1 mg per minute. His cardiac rhythm is sinus. Urine output is in order of 30 mL an hour. [facility] a mediastinal chest tube in the right pleural chest tube. Output from the right pleural chest tube has been minimal and the mediastinal chest tube output has been in the order of 400 mL. The current hemoglobin is at 13.4. On 09/20/2020, the patient is extubated and the patient is doing well sitting up on a chair, comfortable without any significant respiratory distress. Currently the patient liters of oxygen by nasal cannula. The patient has a right-sided and a mediastinal chest tube which are placed to low continuous suction at -20 cm of water. There is no evidence of any air leak. The chest x-ray from today shows adequate expansion of both lungs. Hemodynamically, the patient has a cardiac output of 7.4 with an index of 3.2. Pulmonary artery pressures of 56/15. The CVP is at 9. The patient was taken off the norepinephrine infusion. The milrinone infusion is being gradually weaned off and currently is down to 0.15 Pascual respiratory gram per minute. Noted the patient also developed atrial fibrillation and the patient is currently on amiodarone drip at 0.5 mg per minute. The heart rate is controlled for now. Note that the patient went into atrial fibrillation for. Hours and subsequently converted back to normal sinus rhythm. Insulin drip is running at 5.5 units an hour. The patient will ultimately be on amiodarone. The right pleural chest tube is draining down 70mL an hour. Output from the recent chest tube is in order of 30 mL an hour. The patient is awake and alert. Objective - Vital Signs Vital signs: Vital Signs Temp 37.2 F L 09/20/20 08:00 Pulse 91 09/20/20 09:00 Resp 21 09/20/20 09:00 BP 127/75 09/20/20 09:00 Pulse Ox 96 09/20/20 09:00 Intake & Output 09/19/20 09/20/20 09/20/20 18:59 06:59 18:59 Intake Total 617.727 5748.394 695.711 Output Total 3435 965 160 Balance -2616.446 1488.394 535.711 Weight 119 kg Intake: IV 722.16 1789.04 307 ACETAMINOPHEN IV (For NPO 100 ) 1,000 mg In Empty Bag 1 bag @ 400 mls/hr IVPB Q6H [facility] Rx#:[id number] Albumin Human 5% 250 ml 250 750 In Empty Bag 1 bag @ 250 mls/hr IVPB ONCE [facility] Rx#: [id number] CO/CI 280 30 Milrinone-D5w Pmx 20 mg 40.16 10.04 In Dextrose/Water 1 100ml .bag @ 0.3 MCG/KG/MIN 10. 043 mls/hr IV .Q9H58M [facility] Rx#:[id number] Pressure bags 0.9 99 27 Sodium Chloride 0.9% 1, 200 600 150 000 ml @ 50 mls/hr IV . Q20H [facility] Rx#:[id number] ceFAZolin 2 gm In Sodium 100 50 100 Chloride 0.9% 50 ml @ 100 mls/hr IVPB Q8HR [facility] Rx# :[id number] Intake, IV Titration 96.394 664.354 138.711 Amount ACETAMINOPHEN IV (For NPO 100 ) 1,000 mg In Empty Bag 1 bag @ 400 mls/hr IVPB Q6H [facility] Rx#:[id number] Amiodarone 360 mg In 200 Dextrose 5% in Water 200 ml @ 1 MG/MIN 33.333 mls/ hr IV .Q6H PRN Rx#: [id number] Dextrose 5% in Water 100 100 ml @ 618 mls/hr IV .Q10M PRN with Amiodarone 150 mg Rx#:[id number] Insulin Regular 100 unit 11.817 69.657 10.925 In Sodium Chloride 0.9% 100 ml @ Per Protocol IV .Q0M [facility] Rx#:[id number] Magnesium Sulfate-D5w Pmx 100 1 gm In Dextrose/Water 1 100ml.bag @ 100 mls/hr IVPB Q1H [facility] Rx#: [id number] Milrinone-D5w Pmx 20 mg 100 27.786 In Dextrose/Water 1 100ml .bag @ 0.3 MCG/KG/MIN 10. 043 mls/hr IV .Q9H58M [facility] Rx#:[id number] Norepinephrine 4 mg In 19.132 88.002 Sodium Chloride 0.9% 250 ml @ 0.05 MCG/KG/MIN 21. 257 mls/hr IV .[id number] [facility] Rx#:[id number] propofoL 1,000 mg In 65.445 6.695 Empty Bag 1 bag @ Titrate IV .Q0M [facility] Rx#: [id number] Oral 250 Output: Chest Tube Drainage 140 495 60 Bilateral Mediastinal 140 430 60 Right Anterior Chest 0 65 Urine 795 470 100 Estimated Blood Loss 2500 Other: Voiding Method Indwelling Catheter Indwelling Catheter ABP, PAP, CO, CI - Last Documented Arterial Blood Pressure 149/60 Pulmonary Artery Pressure 37/16 Cardiac Output 5.7 Cardiac Index 2.5 - Exam - Constitutional General appearance: Present: cooperative, no acute distress, obese - EENT Eyes: Present: normal appearance. Absent: scleral icterus ENT: Present: hearing grossly normal - Neck Details: Neck supple, no JVD, no lymphadenopathy. Right IJ Cordis with [place] catheter in place. - Respiratory Details: Lungs sounds essentially clear throughout, diminished to his bilateral bases. Respirations are symmetrical and nonlabored. No wheezes, rhonchi or crackles. Oxygen saturation are 94% on 5 L nasal cannula. Achieving 1000 mL on his incentive spirometry. Mediastinal and right pleural chest tubes remained in place to low continuous wall suction -20 cm H2O. No air leak is present. Draining thin serosanguineous drainage. Mediastinal chest tubes drained 170 mL output in the last 8 hours, and 780 mL output since surgery. - Cardiovascular Details: Irregular rhythm with controlled rate. S1 and S2 present, negative for S3, gallop or murmur. Sternum is stable. Bedside telemetry showing atrial fibrillation heart rate 80 BPM. No edema present. Atrial and ventricular epicardial pacemaker wires in place and connected to the Bedside pacemaker generator on an AAI 50. Right IJ Cordis with [place] catheter in place, current hemodynamic showing a cardiac output 7.4, cardiac index 3.2, PA pressures 56/13 and CVP 8 mmHg. Knee-high [employer] hose and sequential compression devices in place was bilateral lower extremities. Heart hugger is in place and he is demonstrating appropriate use. No edema present. - Gastrointestinal Gastrointestinal Comment(s): Abdomen is soft, nontender and nondistended. Hypoactive bowel sounds present in all 4 abdominal quadrants. No guarding or rigidity. No megaly appreciated. Tolerating oral intake. - Genitourinary Genitourinary Comment(s): Mora catheter for accurate I&O. Draining clear [place] urine. - Integumentary Integumentary Comment(s): Skin is warm and dry. No clubbing or cyanosis is present. Midline sternal incision is clean, dry and approximated. No drainage or redness is present. Dressing is clean, dry and intact. - Neurologic Neurologic: Present: CNII-XII intact - Musculoskeletal Musculoskeletal: Present: gait normal, generalized weakness, strength equal bilaterally - Labs CBC & Chem 7: 09/20/20 05:00 09/20/20 05:00 Labs: Abnormal Lab Results - Last 24 Hours (Table) 09/14/20 09/19/20 09/19/20 Range/Units 09:00 08:25 09:41 WBC (3.8-10.6) k/uL RBC (4.30-5.90) m/uL Hgb (13.0-17.5) gm/dL Hct (39.0-53.0) % Plt Count (150-450) k/uL Neutrophils # (1.3-7.7) k/uL Lymphocytes # (1.0-4.8) k/uL Monocytes # (0-1.0) k/uL INR (<1.2) ABG pH 7.34 L (7.35-7.45) ABG pCO2 46 H (35-45) mmHg ABG pO2 154 H 180 H (83-108) mmHg ABG HCO3 26 H (21-25) mmol/L ABG Total CO2 27 H 26 H (19-24) mmol/L ABG O2 Saturation 99.0 H 99.1 H (94-97) % ABG Potassium (3.4-4.5) mmol/L ABG Ionized Calcium (4.5-5.3) mg/dL ABG Glucose 105 H (75-99) mg/dL Hemoglobin (13.0-17.5) gm/dL Sodium (137-145) mmol/L Chloride (98-107) mmol/L Carbon Dioxide (22-30) mmol/L Glucose (74-99) mg/dL POC Glucose (mg/dL) (75-99) mg/dL Magnesium (1.6-2.3) mg/dL Total Bilirubin (0.2-1.3) mg/dL AST (17-59) U/L Total Protein (6.3-8.2) g/dL Albumin (3.5-5.0) g/dL Arterial Blood Potassium (3.4-4.5) mmol/L Arterial Blood Glucose 105 H (75-99) mg/dL Crossmatch See Detail 09/19/20 09/19/20 09/19/20 Range/Units 10:15 10:47 11:14 WBC (3.8-10.6) k/uL RBC (4.30-5.90) m/uL Hgb (13.0-17.5) gm/dL Hct (39.0-53.0) % Plt Count (150-450) k/uL Neutrophils # (1.3-7.7) k/uL Lymphocytes # (1.0-4.8) k/uL Monocytes # (0-1.0) k/uL INR (<1.2) ABG pH 7.33 L 7.21 L (7.35-7.45) ABG pCO2 46 H 65 H (35-45) mmHg ABG pO2 419 H 317 H 325 H (83-108) mmHg ABG HCO3 26 H (21-25) mmol/L ABG Total CO2 26 H 25 H 28 H (19-24) mmol/L ABG O2 Saturation 99.6 H 99.7 H 99.4 H (94-97) % ABG Potassium 4.8 H 5.7 H 5.9 H (3.4-4.5) mmol/L ABG Ionized Calcium 4.4 L 4.3 L 4.4 L (4.5-5.3) mg/dL ABG Glucose 163 H 196 H (75-99) mg/dL Hemoglobin 12.4 L 11.1 L 12.0 L (13.0-17.5) gm/dL Sodium (137-145) mmol/L Chloride (98-107) mmol/L Carbon Dioxide (22-30) mmol/L Glucose (74-99) mg/dL POC Glucose (mg/dL) (75-99) mg/dL Magnesium (1.6-2.3) mg/dL Total Bilirubin (0.2-1.3) mg/dL AST (17-59) U/L Total Protein (6.3-8.2) g/dL Albumin (3.5-5.0) g/dL Arterial Blood Potassium 4.8 H 5.7 H 5.9 H (3.4-4.5) mmol/L Arterial Blood Glucose 163 H 196 H (75-99) mg/dL Crossmatch 09/19/20 09/19/20 09/19/20 Range/Units 15:00 15:00 15:00 WBC 14.6 H (3.8-10.6) k/uL RBC (4.30-5.90) m/uL Hgb (13.0-17.5) gm/dL Hct (39.0-53.0) % Plt Count 124 L (150-450) k/uL Neutrophils # 12.2 H (1.3-7.7) k/uL Lymphocytes # (1.0-4.8) k/uL Monocytes # 1.1 H (0-1.0) k/uL INR 1.2 H (<1.2) ABG pH (7.35-7.45) ABG pCO2 (35-45) mmHg ABG pO2 (83-108) mmHg ABG HCO3 (21-25) mmol/L ABG Total CO2 (19-24) mmol/L ABG O2 Saturation (94-97) % ABG Potassium (3.4-4.5) mmol/L ABG Ionized Calcium (4.5-5.3) mg/dL ABG Glucose (75-99) mg/dL Hemoglobin (13.0-17.5) gm/dL Sodium 136 L (137-145) mmol/L Chloride 108 H (98-107) mmol/L Carbon Dioxide (22-30) mmol/L Glucose 142 H (74-99) mg/dL POC Glucose (mg/dL) (75-99) mg/dL Magnesium 2.6 H (1.6-2.3) mg/dL Total Bilirubin 1.4 H (0.2-1.3) mg/dL AST 163 H (17-59) U/L Total Protein 5.4 L (6.3-8.2) g/dL Albumin 3.2 L (3.5-5.0) g/dL Arterial Blood Potassium (3.4-4.5) mmol/L Arterial Blood Glucose (75-99) mg/dL Crossmatch 09/19/20 09/19/20 09/19/20 Range/Units 15:10 15:25 15:30 WBC (3.8-10.6) k/uL RBC (4.30-5.90) m/uL Hgb (13.0-17.5) gm/dL Hct (39.0-53.0) % Plt Count (150-450) k/uL Neutrophils # (1.3-7.7) k/uL Lymphocytes # (1.0-4.8) k/uL Monocytes # (0-1.0) k/uL INR (<1.2) ABG pH 7.29 L (7.35-7.45) ABG pCO2 52 H (35-45) mmHg ABG pO2 (83-108) mmHg ABG HCO3 (21-25) mmol/L ABG Total CO2 26 H (19-24) mmol/L ABG O2 Saturation (94-97) % ABG Potassium (3.4-4.5) mmol/L ABG Ionized Calcium (4.5-5.3) mg/dL ABG Glucose (75-99) mg/dL Hemoglobin (13.0-17.5) gm/dL Sodium (137-145) mmol/L Chloride (98-107) mmol/L Carbon Dioxide (22-30) mmol/L Glucose (74-99) mg/dL POC Glucose (mg/dL) 150 H 150 H (75-99) mg/dL Magnesium (1.6-2.3) mg/dL Total Bilirubin (0.2-1.3) mg/dL AST (17-59) U/L Total Protein (6.3-8.2) g/dL Albumin (3.5-5.0) g/dL Arterial Blood Potassium (3.4-4.5) mmol/L Arterial Blood Glucose (75-99) mg/dL Crossmatch 09/19/20 09/19/20 09/19/20 Range/Units 16:35 17:22 17:55 WBC 13.9 H (3.8-10.6) k/uL RBC (4.30-5.90) m/uL Hgb (13.0-17.5) gm/dL Hct (39.0-53.0) % Plt Count 133 L (150-450) k/uL Neutrophils # 12.3 H (1.3-7.7) k/uL Lymphocytes # 0.7 L (1.0-4.8) k/uL Monocytes # (0-1.0) k/uL INR (<1.2) ABG pH (7.35-7.45) ABG pCO2 (35-45) mmHg ABG pO2 (83-108) mmHg ABG HCO3 (21-25) mmol/L ABG Total CO2 (19-24) mmol/L ABG O2 Saturation (94-97) % ABG Potassium (3.4-4.5) mmol/L ABG Ionized Calcium (4.5-5.3) mg/dL ABG Glucose (75-99) mg/dL Hemoglobin (13.0-17.5) gm/dL Sodium (137-145) mmol/L Chloride (98-107) mmol/L Carbon Dioxide (22-30) mmol/L Glucose (74-99) mg/dL POC Glucose (mg/dL) 159 H 168 H (75-99) mg/dL Magnesium (1.6-2.3) mg/dL Total Bilirubin (0.2-1.3) mg/dL AST (17-59) U/L Total Protein (6.3-8.2) g/dL Albumin (3.5-5.0) g/dL Arterial Blood Potassium (3.4-4.5) mmol/L Arterial Blood Glucose (75-99) mg/dL Crossmatch 09/19/20 09/19/20 09/19/20 Range/Units 18:12 19:22 20:09 WBC (3.8-10.6) k/uL RBC (4.30-5.90) m/uL Hgb (13.0-17.5) gm/dL Hct (39.0-53.0) % Plt Count (150-450) k/uL Neutrophils # (1.3-7.7) k/uL Lymphocytes # (1.0-4.8) k/uL Monocytes # (0-1.0) k/uL INR (<1.2) ABG pH (7.35-7.45) ABG pCO2 (35-45) mmHg ABG pO2 (83-108) mmHg ABG HCO3 (21-25) mmol/L ABG Total CO2 (19-24) mmol/L ABG O2 Saturation (94-97) % ABG Potassium (3.4-4.5) mmol/L ABG Ionized Calcium (4.5-5.3) mg/dL ABG Glucose (75-99) mg/dL Hemoglobin (13.0-17.5) gm/dL Sodium (137-145) mmol/L Chloride (98-107) mmol/L Carbon Dioxide (22-30) mmol/L Glucose (74-99) mg/dL POC Glucose (mg/dL) 160 H 141 H 126 H (75-99) mg/dL Magnesium (1.6-2.3) mg/dL Total Bilirubin (0.2-1.3) mg/dL AST (17-59) U/L Total Protein (6.3-8.2) g/dL Albumin (3.5-5.0) g/dL Arterial Blood Potassium (3.4-4.5) mmol/L Arterial Blood Glucose (75-99) mg/dL Crossmatch 09/19/20 09/19/20 09/19/20 Range/Units 21:03 21:54 22:59 WBC (3.8-10.6) k/uL RBC (4.30-5.90) m/uL Hgb (13.0-17.5) gm/dL Hct (39.0-53.0) % Plt Count (150-450) k/uL Neutrophils # (1.3-7.7) k/uL Lymphocytes # (1.0-4.8) k/uL Monocytes # (0-1.0) k/uL INR (<1.2) ABG pH (7.35-7.45) ABG pCO2 (35-45) mmHg ABG pO2 (83-108) mmHg ABG HCO3 (21-25) mmol/L ABG Total CO2 (19-24) mmol/L ABG O2 Saturation (94-97) % ABG Potassium (3.4-4.5) mmol/L ABG Ionized Calcium (4.5-5.3) mg/dL ABG Glucose (75-99) mg/dL Hemoglobin (13.0-17.5) gm/dL Sodium (137-145) mmol/L Chloride (98-107) mmol/L Carbon Dioxide (22-30) mmol/L Glucose (74-99) mg/dL POC Glucose (mg/dL) 119 H 110 H 170 H (75-99) mg/dL Magnesium (1.6-2.3) mg/dL Total Bilirubin (0.2-1.3) mg/dL AST (17-59) U/L Total Protein (6.3-8.2) g/dL Albumin (3.5-5.0) g/dL Arterial Blood Potassium (3.4-4.5) mmol/L Arterial Blood Glucose (75-99) mg/dL Crossmatch 09/19/20 09/20/20 09/20/20 Range/Units 23:53 01:12 01:53 WBC (3.8-10.6) k/uL RBC (4.30-5.90) m/uL Hgb (13.0-17.5) gm/dL Hct (39.0-53.0) % Plt Count (150-450) k/uL Neutrophils # (1.3-7.7) k/uL Lymphocytes # (1.0-4.8) k/uL Monocytes # (0-1.0) k/uL INR (<1.2) ABG pH (7.35-7.45) ABG pCO2 (35-45) mmHg ABG pO2 (83-108) mmHg ABG HCO3 (21-25) mmol/L ABG Total CO2 (19-24) mmol/L ABG O2 Saturation (94-97) % ABG Potassium (3.4-4.5) mmol/L ABG Ionized Calcium (4.5-5.3) mg/dL ABG Glucose (75-99) mg/dL Hemoglobin (13.0-17.5) gm/dL Sodium (137-145) mmol/L Chloride (98-107) mmol/L Carbon Dioxide (22-30) mmol/L Glucose (74-99) mg/dL POC Glucose (mg/dL) 156 H 141 H 141 H (75-99) mg/dL Magnesium (1.6-2.3) mg/dL Total Bilirubin (0.2-1.3) mg/dL AST (17-59) U/L Total Protein (6.3-8.2) g/dL Albumin (3.5-5.0) g/dL Arterial Blood Potassium (3.4-4.5) mmol/L Arterial Blood Glucose (75-99) mg/dL Crossmatch 09/20/20 09/20/20 09/20/20 Range/Units 03:10 03:53 04:59 WBC (3.8-10.6) k/uL RBC (4.30-5.90) m/uL Hgb (13.0-17.5) gm/dL Hct (39.0-53.0) % Plt Count (150-450) k/uL Neutrophils # (1.3-7.7) k/uL Lymphocytes # (1.0-4.8) k/uL Monocytes # (0-1.0) k/uL INR (<1.2) ABG pH (7.35-7.45) ABG pCO2 (35-45) mmHg ABG pO2 (83-108) mmHg ABG HCO3 (21-25) mmol/L ABG Total CO2 (19-24) mmol/L ABG O2 Saturation (94-97) % ABG Potassium (3.4-4.5) mmol/L ABG Ionized Calcium (4.5-5.3) mg/dL ABG Glucose (75-99) mg/dL Hemoglobin (13.0-17.5) gm/dL Sodium (137-145) mmol/L Chloride (98-107) mmol/L Carbon Dioxide (22-30) mmol/L Glucose (74-99) mg/dL POC Glucose (mg/dL) 183 H 170 H 173 H (75-99) mg/dL Magnesium (1.6-2.3) mg/dL Total Bilirubin (0.2-1.3) mg/dL AST (17-59) U/L Total Protein (6.3-8.2) g/dL Albumin (3.5-5.0) g/dL Arterial Blood Potassium (3.4-4.5) mmol/L Arterial Blood Glucose (75-99) mg/dL Crossmatch 09/20/20 09/20/20 09/20/20 Range/Units 05:00 05:00 05:00 WBC 10.8 H (3.8-10.6) k/uL RBC 3.63 L (4.30-5.90) m/uL Hgb 11.6 L (13.0-17.5) gm/dL Hct 33.1 L (39.0-53.0) % Plt Count 115 L (150-450) k/uL Neutrophils # 9.4 H (1.3-7.7) k/uL Lymphocytes # 0.6 L (1.0-4.8) k/uL Monocytes # (0-1.0) k/uL INR 1.2 H (<1.2) ABG pH (7.35-7.45) ABG pCO2 (35-45) mmHg ABG pO2 (83-108) mmHg ABG HCO3 (21-25) mmol/L ABG Total CO2 (19-24) mmol/L ABG O2 Saturation (94-97) % ABG Potassium (3.4-4.5) mmol/L ABG Ionized Calcium (4.5-5.3) mg/dL ABG Glucose (75-99) mg/dL Hemoglobin (13.0-17.5) gm/dL Sodium 134 L (137-145) mmol/L Chloride (98-107) mmol/L Carbon Dioxide 21 L (22-30) mmol/L Glucose 163 H (74-99) mg/dL POC Glucose (mg/dL) (75-99) mg/dL Magnesium (1.6-2.3) mg/dL Total Bilirubin (0.2-1.3) mg/dL AST 129 H (17-59) U/L Total Protein 5.5 L (6.3-8.2) g/dL Albumin 3.4 L (3.5-5.0) g/dL Arterial Blood Potassium (3.4-4.5) mmol/L Arterial Blood Glucose (75-99) mg/dL Crossmatch 09/20/20 09/20/20 09/20/20 Range/Units 05:49 06:57 08:08 WBC (3.8-10.6) k/uL RBC (4.30-5.90) m/uL Hgb (13.0-17.5) gm/dL Hct (39.0-53.0) % Plt Count (150-450) k/uL Neutrophils # (1.3-7.7) k/uL Lymphocytes # (1.0-4.8) k/uL Monocytes # (0-1.0) k/uL INR (<1.2) ABG pH (7.35-7.45) ABG pCO2 (35-45) mmHg ABG pO2 (83-108) mmHg ABG HCO3 (21-25) mmol/L ABG Total CO2 (19-24) mmol/L ABG O2 Saturation (94-97) % ABG Potassium (3.4-4.5) mmol/L ABG Ionized Calcium (4.5-5.3) mg/dL ABG Glucose (75-99) mg/dL Hemoglobin (13.0-17.5) gm/dL Sodium (137-145) mmol/L Chloride (98-107) mmol/L Carbon Dioxide (22-30) mmol/L Glucose (74-99) mg/dL POC Glucose (mg/dL) 149 H 131 H 129 H (75-99) mg/dL Magnesium (1.6-2.3) mg/dL Total Bilirubin (0.2-1.3) mg/dL AST (17-59) U/L Total Protein (6.3-8.2) g/dL Albumin (3.5-5.0) g/dL Arterial Blood Potassium (3.4-4.5) mmol/L Arterial Blood Glucose (75-99) mg/dL Crossmatch Assessment and Plan Plan: 1 valvular heart disease with severe mitral regurgitation and tricuspid regur gitation post mitral valve replacement and tricuspid valve repair. The patient is postop day #1.the patient remains moderately stable per norepinephrine infusion was discontinued. The patient is currently on Primacor which is being gradually weaned off and currently running at 0.15 mg per KG per minute. Adequate blood pressure urine output. The rest of the hemodynamic parameters are all stable. 2 post thoracotomy, the patient is currently extubated the patient was activated yesterday without any major difficulties and currently the patient is on oxygen at 5-8 L per nasal cannula. 3atrial fibrillation, history of current rhythm is sinus, and overnight the patient went into A. fib RVR and the patient was loaded and maintain with amiodarone. This was switched to oral. The patient is currently in normal sinus rhythm. 4 hypertension 5 hypothyroidism 6 COPD 7 inguinal hernia Plan Monitor the output from the chest tubes Continue using incentive spirometer Wean down the FiO2 as tolerated Wean down the Primacor drip based on the cardiac output and assess the hemodynamic parameters Switch this patient oral amiodarone And evaluation will be discussed with cardiothoracic surgery The patient be kept in ICU for now. We'll continue to follow. We'll keep the IJ [place] catheter in place as long as the patient is still on Primacor drip. We'll given a dose of Lasix 20 mg IV push The atrial and ventricular epicardial pacemaker wires are in place and we are grounded.
[2020-09-20] MEDS: NOREPINEPHRINE 4 MG in SODIUM CHLORIDE 0.9% 250 ML IV SCH (16:18)
[2020-09-20 16:27] LABS: Glucose,Whole Blood 112 mg/dL (75-99)
[2020-09-20 17:35] LABS: Glucose,Whole Blood 159 mg/dL (75-99)
[2020-09-20 18:55] LABS: Glucose,Whole Blood 132 mg/dL (75-99)
[2020-09-20 20:05] LABS: Glucose,Whole Blood 130 mg/dL (75-99)
[2020-09-20] MEDS: SENNOSIDES-DOCUSATE SODIUM 1 EACH TAB PO SCH (20:15)
[2020-09-20 22:01] LABS: Glucose,Whole Blood 121 mg/dL (75-99)
--- NOTE | 2020-09-20 22:57 | P.CONS ---
History of Present Illness - Reason for Consult Consult date: 09/20/20 - Chief Complaint Mitral valve replacement with aortic valve repair - History of Present Illness Mr. Galloway is a pleasant 64-year-old male who first presented to my office with acute shortness of breath and symptoms of congestive heart failure. He is noted to have a loud systolic murmur he underwent echocardiogram and cardiac evaluation is found to have valvular heart disease with intermitting atrial fibrillation. Patient underwent open heart surgery for repair of the valves. Also asked to consult participate for medical management. Patient also suffers from hypertension hyperlipidemia and hypothyroidism CURRENTLY under management. Patient is seen after surgery with some discomfort due to chest tube insertion however he is doing quite well and extubated and talking freely. Review of Systems GENERAL: Patient denies fever. Denies chills. EYES: Denies blurred vision. Denies vision changes. Denies eye pain. EARS, NOSE, MOUTH, & THROAT: Denies headache. Denies sore throat. Denies ear pain. RESPIRATORY: Denies cough. shortness of breath is stable. Denies sputum production. Denies hemoptysis. CARDIOVASCULAR: Has chest pain . Denies palpitations. Denies arrhythmias. GASTROINTESTINAL: Denies abdominal pain. Denies diarrhea. Denies constipation. Denies nausea. Denies vomiting. Denies heartburn. Denies blood in the stool. GENITOURINARY: Denies urinary frequency. Denies burning. Denies dysuria. Denies cloudy urine. Denies blood in the urine. MUSCULOSKELETAL: Denies myalgias. Denies joint swelling. Denies decreased range of motion beyond patients baseline. INTEGUMENTARY: Denies pruitis. Denies rash. PSYCHIATRIC: Denies suicidal or homicial ideations. ENDOCRINE: Denies weight change. Denies polydipsia. Denies polyuria. HEMATOLOGIC: Denies bleeding disorders. Past Medical History Past Medical History: Atrial Fibrillation, COPD, Hypertension, Thyroid Disorder Additional Past Medical History / Comment(s): present left inguinal hernia, murmur-mitral valve regurgitation, hypothyroidism History of Any Multi-Drug Resistant Organisms: None Reported Past Surgical History: Cholecystectomy, Heart Catheterization, Hernia Repair, Tonsillectomy Additional Past Surgical History / Comment(s): Right inguinal hernia repair, umbilical hernia repair,ALEXY Past Anesthesia/Blood Transfusion Reactions: No Reported Reaction Additional Past Anesthesia/Blood Transfusion Reaction / Comm: no hx blood transfusion Smoking Status: Former smoker - Past Family History Father Family Medical History: Cancer Additional Family Medical History / Comment(s): Father of brain cancer Mother Family Medical History: CVA/TIA Additional Family Medical History / Comment(s): Mother of stroke Medications and Allergies Home Medications Medication Instructions Recorded Confirmed Type Albuterol Sulfate [Proair Hfa] 1 - 2 puff INHALATION Q6HR PRN 08/01/20 09/14/20 History Apixaban [Eliquis] 5 mg PO BID 08/01/20 09/14/20 History Furosemide [Lasix] 20 mg PO DAILY 08/01/20 09/14/20 History Levothyroxine Sodium [Synthroid] 50 mcg PO DAILY 08/01/20 09/14/20 History Losartan Potassium [Cozaar] 50 mg PO PC-SUPPER 08/01/20 09/14/20 History Metoprolol Tartrate [Lopressor] 25 mg PO BID 08/01/20 09/14/20 History Aspirin EC [Ecotrin Low Dose] 81 mg PO DAILY 09/19/20 09/19/20 History Allergies Allergy/AdvReac Type Severity Reaction Status Date / Time Penicillins Allergy Rash/Hives Verified 09/19/20 05:55 Physical Exam Osteopathic Statement: *. No significant issues noted on an osteopathic structural exam other than those noted in the History and Physical/Consult. Vitals: Vital Signs Temp Pulse Pulse Pulse Resp BP Pulse Ox 09/20/20 22:30 67 22 127/71 93 L 09/20/20 22:00 77 12 95 09/20/20 21:30 74 21 117/84 95 09/20/20 21:10 72 11 L 09/20/20 21:01 71 11 L 09/20/20 21:00 67 18 96 09/20/20 20:30 69 24 114/78 95 09/20/20 20:00 100.0 F H 71 68 20 95 09/20/20 19:30 72 21 95 09/20/20 19:00 73 20 95 09/20/20 18:30 78 16 119/83 96 09/20/20 18:00 85 17 96 09/20/20 17:30 89 13 95 09/20/20 17:00 86 24 98 09/20/20 16:34 84 09/20/20 16:30 37.4 F L 80 16 133/89 99 09/20/20 16:20 82 24 09/20/20 16:00 81 18 96 09/20/20 15:30 80 20 127/70 96 09/20/20 15:00 76 23 95 09/20/20 14:30 78 19 106/71 96 09/20/20 14:00 80 21 96 09/20/20 13:30 79 20 130/68 95 09/20/20 12:10 83 09/20/20 12:01 78 09/20/20 12:00 37.4 F L 78 20 143/84 95 09/20/20 11:50 16 09/20/20 11:04 85 23 97 09/20/20 10:00 89 25 H 95 09/20/20 09:00 91 21 127/75 96 09/20/20 08:42 88 09/20/20 08:30 82 15 105/71 97 09/20/20 08:29 83 09/20/20 08:10 89 23 09/20/20 08:00 37.2 F L 90 18 105/71 96 09/20/20 07:30 96 27 H 105/69 94 L 09/20/20 07:00 83 22 105/69 94 L 09/20/20 06:30 80 21 92 L 09/20/20 06:00 76 22 130/79 93 L 09/20/20 05:30 79 21 94 L 09/20/20 05:00 80 21 113/71 93 L 09/20/20 04:30 78 16 93 L 09/20/20 04:00 87 21 92 L 09/20/20 03:30 87 22 92 L 09/20/20 03:00 89 20 93 L 09/20/20 02:30 90 21 93 L 09/20/20 02:00 87 19 92 L 09/20/20 01:30 87 22 94 L 09/20/20 01:00 92 21 118/84 92 L 09/20/20 00:30 87 20 128/77 93 L 09/20/20 00:00 98.4 F 96 23 128/77 93 L 09/19/20 23:30 92 23 94 L 09/19/20 23:23 95 19 94 L 09/19/20 23:00 89 23 94 L Intake and Output 1109/20/20 09/20/20 06:59 14:59 22:59 Intake Total 200.348 9042.320 929.379 Output Total 637 620 445 Balance 340.047 650.320 484.379 Intake: IV 712 613 442 CO/CI 190 50 60 Pressure bags 0.9 72 63 72 Sodium Chloride 0.9% 1, 400 400 260 000 ml @ 20 mls/hr IV . Q24H JAMESON Rx#:[id number] ceFAZolin 2 gm In Sodium 50 100 50 Chloride 0.9% 50 ml @ 100 mls/hr IVPB Q8HR [facility]AMESON Rx# :[id number] Intake, IV Titration 265.047 407.320 237.379 Amount Amiodarone 300 mg In 250 213.333 Dextrose 5% in Water 250 ml @ 0.5 MG/MIN 25 mls/hr IV .Q10H JAMESON Rx#: [id number] Dextrose 5% in Water 100 100 ml @ 618 mls/hr IV .Q10M PRN with Amiodarone 150 mg Rx#:[id number] Insulin Regular 100 unit 49.743 29.534 24.046 In Sodium Chloride 0.9% 100 ml @ Per Protocol IV .Q0M [facility]AMESON Rx#:[id number] Magnesium Sulfate-D5w Pmx 100 1 gm In Dextrose/Water 1 100ml.bag @ 100 mls/hr IVPB Q1H [facility] Rx#: [id number] Milrinone-D5w Pmx 20 mg 100 27.786 In Dextrose/Water 1 100ml .bag @ 0.3 MCG/KG/MIN 10. 043 mls/hr IV .Q9H58M [facility]ON Rx#:[id number] Norepinephrine 4 mg In 15.304 Sodium Chloride 0.9% 250 ml @ 0.05 MCG/KG/MIN 21. 257 mls/hr IV .[id number] JAMESON Rx#:[id number] Oral 250 250 Output: Chest Tube Drainage 272 185 110 Bilateral Mediastinal 240 160 60 Right Anterior Chest 32 25 50 Urine 365 435 335 Other: Voiding Method Indwelling Catheter Indwelling Catheter Indwelling Catheter Weight 119 kg 119 kg ABP, PAP, CO, CI - Last 8 Hours Arterial Blood Pressure 101/53 Arterial Blood Pressure 108/100 Arterial Blood Pressure 121/61 Arterial Blood Pressure 119/64 Arterial Blood Pressure 117/60 Arterial Blood Pressure 122/70 Arterial Blood Pressure 120/65 Arterial Blood Pressure 101/70 Arterial Blood Pressure 118/68 Arterial Blood Pressure 128/63 Arterial Blood Pressure 123/68 Arterial Blood Pressure 116/66 Arterial Blood Pressure 122/67 Arterial Blood Pressure 119/64 Arterial Blood Pressure 123/69 Pulmonary Artery Pressure 31/9 Pulmonary Artery Pressure 40/15 Pulmonary Artery Pressure 38/15 Pulmonary Artery Pressure 41/15 Pulmonary Artery Pressure 44/15 Pulmonary Artery Pressure 40/17 Pulmonary Artery Pressure 42/14 Pulmonary Artery Pressure 35/17 Pulmonary Artery Pressure 33/12 Pulmonary Artery Pressure 40/14 Pulmonary Artery Pressure 41/16 Pulmonary Artery Pressure 44/17 Pulmonary Artery Pressure 30/15 Pulmonary Artery Pressure 34/13 Pulmonary Artery Pressure 36/16 Pulmonary Artery Pressure 36/14 Cardiac Output 6.7 Cardiac Output 7.9 Cardiac Index 2.9 Cardiac Index 3.4 GENERAL: This is a -64 year-old male in no apparent distress at the time of examination except discomfort associated with chest tube insertion. Pleasant and cooperative. HEENT: Head is atraumatic, normocephalic. Pupils are equal, round, and reactive to light. Sclerae anicteric. Conjunctivae are clear. Mucus membranes of the mouth are moist. Neck is supple. RESPIRATORY: Clear to auscultation. No wheezes, rales, or rhonchi. Patient maintaining oxygen saturation greater than 92%. Positive chest wall tenderness is noted on palpation or with deep breathing. CARDIOVASCULAR: Regular rate and rhythm. GASTROINTESTINAL: No distention noted. Abdomen soft and round. Normal active bowel sounds auscultated x 4 quadrants. No pain or tenderness noted upon palpation. INTEGUMENTARY: No cyanosis. No jaundice. No rashes noted. No cellulitis noted. EXTREMITIES: 2+ peripheral pulses. No evidence of peripheral edema. No calf tenderness noted. NEUROLOGIC: Cranial nerves II-XII intact. PSYCHIATRIC: Awake, alert, and oriented X 3. Appropriate affect. Intact judgement and insight. Results CBC & Chem 7: 09/20/20 05:00 09/20/20 05:00 Labs: Abnormal Lab Results - Last 24 Hours (Table) 09/19/20 09/19/20 09/20/20 Range/Units 22:59 23:53 01:12 WBC (3.8-10.6) k/uL RBC (4.30-5.90) m/uL Hgb (13.0-17.5) gm/dL Hct (39.0-53.0) % Plt Count (150-450) k/uL Neutrophils # (1.3-7.7) k/uL Lymphocytes # (1.0-4.8) k/uL INR (<1.2) Sodium (137-145) mmol/L Carbon Dioxide (22-30) mmol/L Glucose (74-99) mg/dL POC Glucose (mg/dL) 170 H 156 H 141 H (75-99) mg/dL AST (17-59) U/L Total Protein (6.3-8.2) g/dL Albumin (3.5-5.0) g/dL 09/20/20 09/20/20 09/20/20 Range/Units 01:53 03:10 03:53 WBC (3.8-10.6) k/uL RBC (4.30-5.90) m/uL Hgb (13.0-17.5) gm/dL Hct (39.0-53.0) % Plt Count (150-450) k/uL Neutrophils # (1.3-7.7) k/uL Lymphocytes # (1.0-4.8) k/uL INR (<1.2) Sodium (137-145) mmol/L Carbon Dioxide (22-30) mmol/L Glucose (74-99) mg/dL POC Glucose (mg/dL) 141 H 183 H 170 H (75-99) mg/dL AST (17-59) U/L Total Protein (6.3-8.2) g/dL Albumin (3.5-5.0) g/dL 09/20/20 09/20/20 09/20/20 Range/Units 04:59 05:00 05:00 WBC 10.8 H (3.8-10.6) k/uL RBC 3.63 L (4.30-5.90) m/uL Hgb 11.6 L (13.0-17.5) gm/dL Hct 33.1 L (39.0-53.0) % Plt Count 115 L (150-450) k/uL Neutrophils # 9.4 H (1.3-7.7) k/uL Lymphocytes # 0.6 L (1.0-4.8) k/uL INR (<1.2) Sodium 134 L (137-145) mmol/L Carbon Dioxide 21 L (22-30) mmol/L Glucose 163 H (74-99) mg/dL POC Glucose (mg/dL) 173 H (75-99) mg/dL AST 129 H (17-59) U/L Total Protein 5.5 L (6.3-8.2) g/dL Albumin 3.4 L (3.5-5.0) g/dL 09/20/20 09/20/20 09/20/20 Range/Units 05:00 05:49 06:57 WBC (3.8-10.6) k/uL RBC (4.30-5.90) m/uL Hgb (13.0-17.5) gm/dL Hct (39.0-53.0) % Plt Count (150-450) k/uL Neutrophils # (1.3-7.7) k/uL Lymphocytes # (1.0-4.8) k/uL INR 1.2 H (<1.2) Sodium (137-145) mmol/L Carbon Dioxide (22-30) mmol/L Glucose (74-99) mg/dL POC Glucose (mg/dL) 149 H 131 H (75-99) mg/dL AST (17-59) U/L Total Protein (6.3-8.2) g/dL Albumin (3.5-5.0) g/dL 09/20/20 09/20/20 09/20/20 Range/Units 08:08 10:05 12:00 WBC (3.8-10.6) k/uL RBC (4.30-5.90) m/uL Hgb (13.0-17.5) gm/dL Hct (39.0-53.0) % Plt Count (150-450) k/uL Neutrophils # (1.3-7.7) k/uL Lymphocytes # (1.0-4.8) k/uL INR (<1.2) Sodium (137-145) mmol/L Carbon Dioxide (22-30) mmol/L Glucose (74-99) mg/dL POC Glucose (mg/dL) 129 H 105 H 130 H (75-99) mg/dL AST (17-59) U/L Total Protein (6.3-8.2) g/dL Albumin (3.5-5.0) g/dL 09/20/20 09/20/20 09/20/20 Range/Units 12:56 14:41 15:09 WBC (3.8-10.6) k/uL RBC (4.30-5.90) m/uL Hgb (13.0-17.5) gm/dL Hct (39.0-53.0) % Plt Count (150-450) k/uL Neutrophils # (1.3-7.7) k/uL Lymphocytes # (1.0-4.8) k/uL INR (<1.2) Sodium (137-145) mmol/L Carbon Dioxide (22-30) mmol/L Glucose (74-99) mg/dL POC Glucose (mg/dL) 190 H 110 H 104 H (75-99) mg/dL AST (17-59) U/L Total Protein (6.3-8.2) g/dL Albumin (3.5-5.0) g/dL 09/20/20 09/20/20 09/20/20 Range/Units 16:16 17:33 18:52 WBC (3.8-10.6) k/uL RBC (4.30-5.90) m/uL Hgb (13.0-17.5) gm/dL Hct (39.0-53.0) % Plt Count (150-450) k/uL Neutrophils # (1.3-7.7) k/uL Lymphocytes # (1.0-4.8) k/uL INR (<1.2) Sodium (137-145) mmol/L Carbon Dioxide (22-30) mmol/L Glucose (74-99) mg/dL POC Glucose (mg/dL) 112 H 159 H 132 H (75-99) mg/dL AST (17-59) U/L Total Protein (6.3-8.2) g/dL Albumin (3.5-5.0) g/dL 09/20/20 09/20/20 Range/Units 20:04 22:00 WBC (3.8-10.6) k/uL RBC (4.30-5.90) m/uL Hgb (13.0-17.5) gm/dL Hct (39.0-53.0) % Plt Count (150-450) k/uL Neutrophils # (1.3-7.7) k/uL Lymphocytes # (1.0-4.8) k/uL INR (<1.2) Sodium (137-145) mmol/L Carbon Dioxide (22-30) mmol/L Glucose (74-99) mg/dL POC Glucose (mg/dL) 130 H 121 H (75-99) mg/dL AST (17-59) U/L Total Protein (6.3-8.2) g/dL Albumin (3.5-5.0) g/dL Assessment and Plan (1) Mitral valve regurgitation Current Visit: Yes Status: Acute Code(s): I34.0 - NONRHEUMATIC MITRAL (VALV E) INSUFFICIENCY SNOMED Code(s): 83279857 (2) Bioprosthetic mitral valve replacement, current hospitalization Current Visit: Yes Status: Acute Code(s): Z95.3 - PRESENCE OF XENOGENIC HEART VALVE SNOMED Code(s): 84055111035190 (3) Status post repair of supravalvar aortic stenosis Current Visit: Yes Status: Acute Code(s): Z87.74 - PERSONAL HISTORY OF CO NGENITAL MALFORM OF HEART AND CIRC SYS SNOMED Code(s): 107605011 (4) Hypertensive cardiovascular disease Current Visit: Yes Status: Acute Code(s): I11.9 - HYPERTENSIVE HEART DISEASE WITHOUT HEART FAILURE SNOMED Code(s): 54353338 (5) Hyperlipidemia Current Visit: Yes Status: Acute Code(s): E78.5 - HYPERLIPIDEMIA, UNSPECIFIED SNOMED Code(s): 87091627 (6) Hypothyroidism Current Visit: Yes Status: Acute Code(s): E03.9 - HYPOTHYROIDISM, UNSPECIFIED SNOMED Code(s): 19665629 Plan: Plan is to continue current ICU care postoperative care for open heart surgery. We'll continue to follow patient's progress and to make his lifestyle modifications related to further complications from valvular heart disease. Thank you for long range despite this patient's care Time with Patient: Greater than 30
[2020-09-20 23:57] LABS: Glucose,Whole Blood 101 mg/dL (75-99)
[2020-09-20] MEDS: SODIUM CHLORIDE 0.9% 1,000 ML IV SCH (23:57)
[2020-09-21] MEDS: HEPARIN SODIUM,PORCINE 5,000 UNIT/ML 1 ML VIAL SQ SCH ×3 (00:03→17:09)
[2020-09-21] MEDS: KETOROLAC 15 MG/ML 1 ML VIAL IVP SCH ×4 (00:03→17:09)
[2020-09-21] MEDS: HYDROcodone/APAP 5-325MG 1 EACH TAB PO PRN ×4 (00:15→20:38)
[2020-09-21 02:11] LABS: Glucose,Whole Blood 128 mg/dL (75-99)
[2020-09-21 04:08] LABS: Glucose,Whole Blood 118 mg/dL (75-99)
[2020-09-21 04:21] LABS: Ionized Calcium 4.8 mg/dL (4.5-5.3)
[2020-09-21 04:27] LABS: Basophils % (A) 0 %; Eosinophils % (A) 0 %; HCT 28.3 % (39.0-53.0); Lymphocytes # (A) 1.1 k/uL (1.0-4.8); Lymphocytes % (A) 11 %; MCH 30.5 pg (25.0-35.0); MCHC 33.8 g/dL (31.0-37.0); MCV 90.1 fL (80.0-100.0); Mean Platelet Volume 9.3; Monocytes # (A) 0.7 k/uL (0-1.0); Monocytes % (A) 7 %; Neutrophils # (A) 8.1 k/uL (1.3-7.7); Neutrophils % (A) 81 %; RBC 3.14 m/uL (4.30-5.90); RDW 13.9 % (11.5-15.5)
[2020-09-21 04:29] LABS: HGB 9.6 gm/dL (13.0-17.5)
[2020-09-21 04:31] LABS: Albumin 2.9 g/dL (3.5-5.0); Magnesium 2.2 mg/dL (1.6-2.3); Potassium 4.4 mmol/L (3.5-5.1); Total Bilirubin 0.7 mg/dL (0.2-1.3); Total Protein 4.9 g/dL (6.3-8.2)
[2020-09-21 04:49] LABS: Platelet Count 87 k/uL (150-450)
[2020-09-21 06:44] LABS: Glucose,Whole Blood 147 mg/dL (75-99)
[2020-09-21] MEDS: MILRINONE-D5W PMX 20 MG in DEXTROSE/WATER 1 100ML.BAG IV SCH (06:45)
[2020-09-21] MEDS: SODIUM CHLORIDE 0.9% 1,000 ML IV SCH (06:46)
[2020-09-21] MEDS: LEVOTHYROXINE 50 MCG TAB PO SCH (06:51)
[2020-09-21] MEDS: IPRATROPIUM-ALBUTEROL 3 ML NEB INHALATION SCH ×4 (08:13→19:08)
--- NOTE | 2020-09-21 08:27 | XR ---
EXAMINATION TYPE: XR chest 1V portable DATE OF EXAM: 09/21/2020 COMPARISON: 09/20/2020 INDICATION: Postop cardiac surgery TECHNIQUE: Single frontal view of the chest is obtained. FINDINGS: The heart size is enlarged. The pulmonary vasculature is normal. Left lower lobe infiltrate is present. Small left pleural effusion appears to be present. Right-sided chest tube is present. No pneumothorax is evident. Mediastinal tubes are present. Sternotomy wires f rom prior cardiac valve surgery are present. The [place] catheter remains in position tip in the ma in pulmonary artery region. IMPRESSION: 1. Left lower lobe infiltrate. 2. Small left pleural effusion. 3. Cardiomegaly. 4. Multiple lines and catheters discussed above. 5. Resolution previous minimal right pneumothorax.
[2020-09-21] MEDS ORDERED: FUROSEMIDE 10 MG/ML 2 ML VIAL IV STA (08:41)
[2020-09-21] MEDS: PANTOPRAZOLE 40 MG TABLET PO SCH (08:43)
[2020-09-21] MEDS: AMIODARONE 200 MG TAB PO SCH ×2 (08:44→20:48)
[2020-09-21] MEDS: ATORVASTATIN 40 MG TAB PO SCH (08:44)
[2020-09-21] MEDS: ASPIRIN 325 MG TAB PO SCH (08:44)
[2020-09-21] MEDS: CLOPIDOGREL 75 MG TAB PO SCH (08:44)
[2020-09-21 09:32] LABS: Glucose,Whole Blood 139 mg/dL (75-99)
[2020-09-21] MEDS: METOPROLOL TARTRATE 12.5 MG TAB PO SCH ×2 (09:33→20:48)
--- NOTE | 2020-09-21 09:35 | P.PN ---
Subjective Progress Note Date: 09/21/20 Principal diagnosis: Severe mitral valve regurgitation with prolapse of P2, moderate tricuspid valve regurgitation, mild aortic valve regurgitation. Past medical history significa nt for hypertension, hyperlipidemia, hypothyroidism, persistent atrial fibrillation with dilated atria, mild left ventricular dysfunction and previous tobacco dependence. POD #2 complex mitral valve repair with construction of 3 pairs of chelsea-chords to P2 with complete ring annuloplasty using a 38 mm physio-2 ring. Tricuspid valve repair using a 30 mm MC 3 ring. Full biatrial maze procedure using radiofrequency and cryoablation. Exclusion of the left atrial appendage using a 40 mm Atriclip. Intraoperative transesophageal echocardiogram and epi-aortic scanning. Postoperative acute blood loss anemia, expected, dilutional. The patient is seen in follow-up today 09/21/2020 at his bedside in the intensive care unit. Currently he is sitting up to the bedside chair, is awake, alert and oriented 3 and is in no acute apparent distress. He denies any complaints of shortness of breath and reports that his pain is much more controlled today. He reports that he is having some discomfort with taking a deep breath and using his incentive spirometry. Right IJ Ashton-Hoa catheter remains in place with current hemodynamic showing a cardiac output 7.7, cardiac index 3.3, PA pressures 42/18 and CVP 14 mmHg. Primacor drip remains infusing at 0.15 mcg/kg/m. Bedside telemetry showing atrial fibrillation heart rate 58 BPM. Mediastinal and right pleural chest tube to remain in place to low continuous wall suction -20 cm H2O. No air leak is present. Draining thin serosanguineous drainage. Mediastinal chest tubes drained 60 mL output in the last 8 hours and 300 mL output in the last 24 hours, right pleural chest tube drained 110 mL output in the last 8 hours 150 mL output in the last 24 hours. Oxygen saturations are 94% on 2 L nasal cannula and he is achieving 4685-9977 mL on his incentive spirometry. Objective - Vital Signs Vital signs: Vital Signs Temp 99.5 F 09/21/20 04:00 Pulse 66 09/21/20 08:31 Resp 23 09/21/20 07:00 BP 119/69 09/21/20 06:30 Pulse Ox 94 L 09/21/20 07:00 Intake & Output 09/20/20 09/21/20 09/21/20 18:59 06:59 18:59 Intake Total 9405.875 1740.933 39 Output Total 830 625 40 Balance 867.337 389.933 -1 Weight 119 kg 118.3 kg Intake: IV 819 628 39 CO/CI 50 150 Pressure bags 0.9 99 108 9 Sodium Chloride 0.9% 1, 520 370 30 000 ml @ 20 mls/hr IV . Q24H [facility] Rx#:[id number] ceFAZolin 2 gm In Sodium 150 Chloride 0.9% 50 ml @ 100 mls/hr IVPB Q8HR [facility] Rx# :[id number] Intake, IV Titration 628.337 136.933 Amount Amiodarone 300 mg In 463.333 Dextrose 5% in Water 250 ml @ 0.5 MG/MIN 25 mls/hr IV .Q10H [facility] Rx#: [id number] Insulin Regular 100 unit 37.218 36.933 In Sodium Chloride 0.9% 100 ml @ Per Protocol IV .Q0M [facility] Rx#:[id number] Magnesium Sulfate-D5w Pmx 100 1 gm In Dextrose/Water 1 100ml.bag @ 100 mls/hr IVPB Q1H [facility] Rx#: [id number] Milrinone-D5w Pmx 20 mg 100 In Dextrose/Water 1 100ml .bag @ 0.15 MCG/KG/MIN 5. 021 mls/hr IV .[id number] [facility] Rx#:[id number] Milrinone-D5w Pmx 20 mg 27.786 In Dextrose/Water 1 100ml .bag @ 0.3 MCG/KG/MIN 10. 043 mls/hr IV .Q9H58M [facility] Rx#:[id number] Oral 250 250 Output: Chest Tube Drainage 245 220 Bilateral Mediastinal 190 90 Right Anterior Chest 55 130 Urine 585 405 40 Other: Voiding Method Indwelling Catheter Indwelling Catheter ABP, PAP, CO, CI - Last Documented Arterial Blood Pressure 110/59 Pulmonary Artery Pressure 39/16 Cardiac Output 7.7 Cardiac Index 3.3 - Constitutional General appearance: Present: cooperative, no acute distress, obese - EENT Eyes: Present: normal appearance. Absent: scleral icterus ENT: Present: hearing grossly normal - Neck Details: Neck is supple, right IJ Ashton-Hoa catheter in place and functioning. - Respiratory Details: Lung sounds essentially clear throughout, diminished was bilateral bases with few scattered crackles. No wheezes or rhonchi. Respirations are symmetrical and nonlabored. Oxygen saturation are 94% on 2 L nasal cannula. Achieving 3035-1485 mL on his incentive spirometry. Mediastinal and right pleural chest tube to remain in place to low continuous wall suction -20 cm H2O. No air leak is present. Draining thin serosanguineous drainage. - Cardiovascular Details: Irregular rhythm with a bradycardic rate. S1 and S2 present, negative for S3, gallop or murmur. Sternum is stable. Bedside telemetry showing atrial fibrillation heart rate 58 BPM. Right IJ Ashton-Hoa catheter in place with current hemodynamic showing a cardiac output 7.7, cardiac index 3.3, PA pressures 42/18, CVP 14 mmHg. Atrial and ventricular epicardial pacemaker wires in place and grounded. Knee-high AURORA hose and sequential compression devices in place to his bilateral lower extremities. Heart hugger is in place and he is demonstrating appropriate use. No edema present. - Gastrointestinal Gastrointestinal Comment(s): Abdomen is soft, nontender and nondistended. Active bowel sounds present all 4 abdominal quadrants. No guarding or rigidity. No organomegaly appreciated. Tolerating oral intake. Passing flatus. - Genitourinary Genitourinary Comment(s): Mora catheter for accurate I&O. Draining clear [place] urine. 220 mL output in the last 8 hours. - Integumentary Integumentary Comment(s): Skin is warm and dry. No clubbing or cyanosis is present. Midline sternal incision is clean, dry and approximated. No drainage or redness is present. - Neurologic Neurologic: Present: CNII-XII intact - Musculoskeletal Musculoskeletal: Present: gait normal, generalized weakness, strength equal bilaterally - Psychiatric Psychiatric: Present: A&O x's 3, appropriate affect, intact judgment & insight - Allied health notes Allied health notes reviewed: nursing - Labs CBC & Chem 7: 09/21/20 04:05 09/21/20 04:05 Labs: Abnormal Lab Results - Last 24 Hours (Table) 09/14/20 09/20/20 09/20/20 Range/Units 09:00 10:05 12:00 RBC (4.30-5.90) m/uL Hgb (13.0-17.5) gm/dL Hct (39.0-53.0) % Plt Count (150-450) k/uL Neutrophils # (1.3-7.7) k/uL Sodium (137-145) mmol/L BUN (9-20) mg/dL Glucose (74-99) mg/dL POC Glucose (mg/dL) 105 H 130 H (75-99) mg/dL Calcium (8.4-10.2) mg/dL AST (17-59) U/L Total Protein (6.3-8.2) g/dL Albumin (3.5-5.0) g/dL Crossmatch See Detail 09/20/20 09/20/20 09/20/20 Range/Units 12:56 14:41 15:09 RBC (4.30-5.90) m/uL Hgb (13.0-17.5) gm/dL Hct (39.0-53.0) % Plt Count (150-450) k/uL Neutrophils # (1.3-7.7) k/uL Sodium (137-145) mmol/L BUN (9-20) mg/dL Glucose (74-99) mg/dL POC Glucose (mg/dL) 190 H 110 H 104 H (75-99) mg/dL Calcium (8.4-10.2) mg/dL AST (17-59) U/L Total Protein (6.3-8.2) g/dL Albumin (3.5-5.0) g/dL Crossmatch 09/20/20 09/20/20 09/20/20 Range/Units 16:16 17:33 18:52 RBC (4.30-5.90) m/uL Hgb (13.0-17.5) gm/dL Hct (39.0-53.0) % Plt Count (150-450) k/uL Neutrophils # (1.3-7.7) k/uL Sodium (137-145) mmol/L BUN (9-20) mg/dL Glucose (74-99) mg/dL POC Glucose (mg/dL) 112 H 159 H 132 H (75-99) mg/dL Calcium (8.4-10.2) mg/dL AST (17-59) U/L Total Protein (6.3-8.2) g/dL Albumin (3.5-5.0) g/dL Crossmatch 09/20/20 09/20/20 09/20/20 Range/Units 20:04 22:00 23:55 RBC (4.30-5.90) m/uL Hgb (13.0-17.5) gm/dL Hct (39.0-53.0) % Plt Count (150-450) k/uL Neutrophils # (1.3-7.7) k/uL Sodium (137-145) mmol/L BUN (9-20) mg/dL Glucose (74-99) mg/dL POC Glucose (mg/dL) 130 H 121 H 101 H (75-99) mg/dL Calcium (8.4-10.2) mg/dL AST (17-59) U/L Total Protein (6.3-8.2) g/dL Albumin (3.5-5.0) g/dL Crossmatch 09/21/20 09/21/20 09/21/20 Range/Units 02:10 04:05 04:05 RBC 3.14 L (4.30-5.90) m/uL Hgb 9.6 L D (13.0-17.5) gm/dL Hct 28.3 L (39.0-53.0) % Plt Count 87 L (150-450) k/uL Neutrophils # 8.1 H (1.3-7.7) k/uL Sodium 132 L (137-145) mmol/L BUN 21 H (9-20) mg/dL Glucose 115 H (74-99) mg/dL POC Glucose (mg/dL) 128 H (75-99) mg/dL Calcium 8.0 L (8.4-10.2) mg/dL AST 64 H (17-59) U/L Total Protein 4.9 L (6.3-8.2) g/dL Albumin 2.9 L (3.5-5.0) g/dL Crossmatch 09/21/20 09/21/20 Range/Units 04:06 06:43 RBC (4.30-5.90) m/uL Hgb (13.0-17.5) gm/dL Hct (39.0-53.0) % Plt Count (150-450) k/uL Neutrophils # (1.3-7.7) k/uL Sodium (137-145) mmol/L BUN (9-20) mg/dL Glucose (74-99) mg/dL POC Glucose (mg/dL) 118 H 147 H (75-99) mg/dL Calcium (8.4-10.2) mg/dL AST (17-59) U/L Total Protein (6.3-8.2) g/dL Albumin (3.5-5.0) g/dL Crossmatch - Imaging and Cardiology Chest x-ray: report reviewed, image reviewed Assessment and Plan Assessment: 1. Severe mitral valve regurgitation, status post mitral valve repair 2. Moderate tricuspid valve regurgitation, status post tricuspid valve repair 3. Mild aortic valve regurgitation 4. History of hypertension 5. History of hyperlipidemia 6. Hypothyroidism 7. Persistent atrial fibrillation, status post modified Maze procedure and clipping of the left atrial appendage using a Atriclip 8. Mild left ventricular dysfunction 9. Previous tobacco dependence 10. Postoperative acute blood loss anemia, expected Plan: 1. Continue to maximize medical therapy with aspirin, Plavix and beta mukesh. Will decrease his metoprolol tartrate to 12.5 mg by mouth twice a day. 2. Continue amiodarone 400 mg by mouth twice a day for atrial fibrillation prophylaxis. 3. Wean O2 as tolerated. Continue to encourage use of incentive spirometry 10 times every hour while awake. Bronchodilators per pulmonology/critical care management. 4. Will monitor daily labs and chest x-rays. Electrolytes replacement per protocol. 5. GI/DVT prophylaxis. 6. Pain control with current medication regimen. 7. Diabetes/insulin management per Dr. Wan. 8. Remove right IJ Ashton-Hoa catheter, and keep Cordis in place for now with continuous CVP monitoring. 9. Remove mediastinal chest tubes, keep right pleural chest tube in place to low continuous wall suction -20 cm H2O. Continue to record accurate I's and O's. 10. Remove Mora catheter. The bladder scan every 6 hours and when necessary. If greater than 350 mL with a bladder scan may straight cath. 11. Daily weights using standup scale, no bed scale. 12. Lasix 20 mg IV 1 now. 13. Keep atrial and ventricular epicardial pacemaker wires in place and grounded. 14. Discontinue Primacor drip. 15. Increase activity as tolerated, physical/occupational therapy and cardiac rehab following. 16. We will transfer the patient to the third floor cardiac stepdown unit later today. 17. More recommendations to follow based on patient's clinical course. Nurse practitioner note has been reviewed by the physician. Signing provider agrees with the above documented findings, assessment and plan of care. The patient was seen and examined. Time with Patient: Greater than 30
--- NOTE | 2020-09-21 09:48 | PN ---
PROGRESS NOTE Mr. Galloway is a 64-year-old male with underwent mitral valve repair. He had atrial fibrillation preoperatively, underwent a MAZE procedure and ligation of the left atrial appendage. He is awake, alert, sitting up in the chair, feeling better overall. He appears to be in sinus mechanism with episode of PACs. Hemodynamically, he is stable. He has no evidence of ventricular tachycardia. His breathing is better. He is doing better with the incentive spirometry. He has switched to oral amiodarone. He continues to be at this time on amiodarone 400 mg twice a day aspirin once a day Lipitor 40 mg daily Plavix 75 mg daily, metoprolol 25 mg twice a day. PHYSICAL EXAMINATION: Blood pressure 110/59 with a heart rate 60 lungs with few crackles at the bases no wheezes. HEART: Regular rhythm S1, S2. No S3. No rub. ABDOMEN: Soft nontender. EXTREMITIES: No edema. LAB DATA: Chest x-ray revealed small effusion on the left side. No further infiltrate. His BUN and creatinine 21, 1.14, hemoglobin of 9.6. IMPRESSION: 1. Status post mitral valve repair. 2. Atrial fibrillation preoperatively, status post MAZE procedure. 3. History of hypertension. RECOMMENDATION: I will recommend to initiate anticoagulation of the aspirin and Plavix once the pacer wires are removed and increase his level and activity. Continue incentive spirometry and depending on his progress, further recommendation made. It is possible the patient needs to go back in fibrillation. Will continue on the amiodarone and re-evaluate him in 4 to 6 weeks. If he remains in atrial fibrillation cardioversion can be done and I will follow with the patient. MMODL / IJN: [id number] /
--- NOTE | 2020-09-21 11:39 | P.PN ---
Subjective Progress Note Date: 09/21/20 Mitral valve replacement with aortic valve repair Mr. Galloway is a pleasant 64-year-old male who first presented to my office with acute shortness of breath and symptoms of congestive heart failure. He is noted to have a loud systolic murmur he underwent echocardiogram and cardiac evaluation is found to have valvular heart disease with intermitting atrial fibrillation. Patient underwent open heart surgery for repair of the valves. Also asked to consult participate for medical management. Patient also suffers from hypertension hyperlipidemia and hypothyroidism CURRENTLY under management. Patient is seen after surgery with some discomfort due to chest tube insertion however he is doing quite well and extubated and talking freely. 09/21/2020 sitting up in chair, reports he ambulated in hallway yesterday, tolerating exertion well. Telemetry reporting atrial fibrillation, controlled ventricular rate.Primacor drip recently weaned off . Maintaining O2 sats in the 90s on 2 L nasal cannula. Received Lasix IV push 1 this morning. Incentive spirometer up to 1700. Pain controlled. Passing flatus. T-max 100, WBC within normal limits. Chest x-ray reporting left lower lobe infiltrate, small left pleural effusion, resolution of previous minimal right pneumothorax. Blood sugars controlled. Hemoglobin 9.6, sodium 132. Renal function mildly worsened with creatinine 1.14. Objective - Vital Signs Vital signs: Vital Signs Temp 99.5 F 09/21/20 04:00 Pulse 66 09/21/20 08:31 Resp 23 09/21/20 07:00 BP 119/69 09/21/20 06:30 Pulse Ox 94 L 09/21/20 07:00 Intake & Output 09/20/20 09/21/20 09/21/20 18:59 06:59 18:59 Intake Total 9208.779 3673.933 39 Output Total 830 625 40 Balance 867.337 389.933 -1 Weight 119 kg 118.3 kg Intake: IV 819 628 39 CO/CI 50 150 Pressure bags 0.9 99 108 9 Sodium Chloride 0.9% 1, 520 370 30 000 ml @ 20 mls/hr IV . Q24H [facility] Rx#:[id number] ceFAZolin 2 gm In Sodium 150 Chloride 0.9% 50 ml @ 100 mls/hr IVPB Q8HR [facility] Rx# :[id number] Intake, IV Titration 628.337 136.933 Amount Amiodarone 300 mg In 463.333 Dextrose 5% in Water 250 ml @ 0.5 MG/MIN 25 mls/hr IV .Q10H [facility] Rx#: [id number] Insulin Regular 100 unit 37.218 36.933 In Sodium Chloride 0.9% 100 ml @ Per Protocol IV .Q0M [facility] Rx#:[id number] Magnesium Sulfate-D5w Pmx 100 1 gm In Dextrose/Water 1 100ml.bag @ 100 mls/hr IVPB Q1H [facility] Rx#: [id number] Milrinone-D5w Pmx 20 mg 100 In Dextrose/Water 1 100ml .bag @ 0.15 MCG/KG/MIN 5. 021 mls/hr IV .[id number] [facility] Rx#:[id number] Milrinone-D5w Pmx 20 mg 27.786 In Dextrose/Water 1 100ml .bag @ 0.3 MCG/KG/MIN 10. 043 mls/hr IV .Q9H58M [facility] Rx#:[id number] Oral 250 250 Output: Chest Tube Drainage 245 220 Bilateral Mediastinal 190 90 Right Anterior Chest 55 130 Urine 585 405 40 Other: Voiding Method Indwelling Catheter Indwelling Catheter ABP, PAP, CO, CI - Last Documented Arterial Blood Pressure 110/59 Pulmonary Artery Pressure 39/16 Cardiac Output 7.7 Cardiac Index 3.3 - Exam GENERAL: Sitting up in chair, no acute distress except chest tubes discomfort Pleasant and cooperative. HEENT: Head is atraumatic, normocephalic. Pupils are equal, round, and reactive to light. Sclerae anicteric. Conjunctivae are clear. Mucus membranes of the mouth are moist. Neck is supple. Cordis present. RESPIRATORY: Clear to auscultation. No wheezes, rales, or rhonchi. Right pleura l, mediastinal chest tubes present with chest wall tenderness noted on palpation or with deep breathing. CARDIOVASCULAR: Irregular, bradycardic. GASTROINTESTINAL: No distention noted. Abdomen soft and round. Normal active bowel sounds auscultated x 4 quadrants. No pain or tenderness noted upon p alpation. INTEGUMENTARY: No cyanosis. No jaundice. No rashes noted. No cellulitis noted. EXTREMITIES: 2+ peripheral pulses. No evidence of peripheral edema. No calf tenderness noted. NEUROLOGIC: Cranial nerves II-XII intact. PSYCHIATRIC: Awake, alert, and oriented X 3. Appropriate affect. Intact ju dgement and insight. - Labs CBC & Chem 7: 09/21/20 04:05 09/21/20 04:05 Labs: Abnormal Lab Results - Last 24 Hours (Table) 09/14/20 09/20/20 09/20/20 Range/Units 09:00 10:05 12:00 RBC (4.30-5.90) m/uL Hgb (13.0-17.5) gm/dL Hct (39.0-53.0) % Plt Count (150-450) k/uL Neutrophils # (1.3-7.7) k/uL Sodium (137-145) mmol/L BUN (9-20) mg/dL Glucose (74-99) mg/dL POC Glucose (mg/dL) 105 H 130 H (75-99) mg/dL Calcium (8.4-10.2) mg/dL AST (17-59) U/L Total Protein (6.3-8.2) g/dL Albumin (3.5-5.0) g/dL Crossmatch See Detail 09/20/20 09/20/20 09/20/20 Range/Units 12:56 14:41 15:09 RBC (4.30-5.90) m/uL Hgb (13.0-17.5) gm/dL Hct (39.0-53.0) % Plt Count (150-450) k/uL Neutrophils # (1.3-7.7) k/uL Sodium (137-145) mmol/L BUN (9-20) mg/dL Glucose (74-99) mg/dL POC Glucose (mg/dL) 190 H 110 H 104 H (75-99) mg/dL Calcium (8.4-10.2) mg/dL AST (17-59) U/L Total Protein (6.3-8.2) g/dL Albumin (3.5-5.0) g/dL Crossmatch 09/20/20 09/20/20 09/20/20 Range/Units 16:16 17:33 18:52 RBC (4.30-5.90) m/uL Hgb (13.0-17.5) gm/dL Hct (39.0-53.0) % Plt Count (150-450) k/uL Neutrophils # (1.3-7.7) k/uL Sodium (137-145) mmol/L BUN (9-20) mg/dL Glucose (74-99) mg/dL POC Glucose (mg/dL) 112 H 159 H 132 H (75-99) mg/dL Calcium (8.4-10.2) mg/dL AST (17-59) U/L Total Protein (6.3-8.2) g/dL Albumin (3.5-5.0) g/dL Crossmatch 09/20/20 09/20/20 09/20/20 Range/Units 20:04 22:00 23:55 RBC (4.30-5.90) m/uL Hgb (13.0-17.5) gm/dL Hct (39.0-53.0) % Plt Count (150-450) k/uL Neutrophils # (1.3-7.7) k/uL Sodium (137-145) mmol/L BUN (9-20) mg/dL Glucose (74-99) mg/dL POC Glucose (mg/dL) 130 H 121 H 101 H (75-99) mg/dL Calcium (8.4-10.2) mg/dL AST (17-59) U/L Total Protein (6.3-8.2) g/dL Albumin (3.5-5.0) g/dL Crossmatch 09/21/20 09/21/20 09/21/20 Range/Units 02:10 04:05 04:05 RBC 3.14 L (4.30-5.90) m/uL Hgb 9.6 L D (13.0-17.5) gm/dL Hct 28.3 L (39.0-53.0) % Plt Count 87 L (150-450) k/uL Neutrophils # 8.1 H (1.3-7.7) k/uL Sodium 132 L (137-145) mmol/L BUN 21 H (9-20) mg/dL Glucose 115 H (74-99) mg/dL POC Glucose (mg/dL) 128 H (75-99) mg/dL Calcium 8.0 L (8.4-10.2) mg/dL AST 64 H (17-59) U/L Total Protein 4.9 L (6.3-8.2) g/dL Albumin 2.9 L (3.5-5.0) g/dL Crossmatch 09/21/20 09/21/20 Range/Units 04:06 06:43 RBC (4.30-5.90) m/uL Hgb (13.0-17.5) gm/dL Hct (39.0-53.0) % Plt Count (150-450) k/uL Neutrophils # (1.3-7.7) k/uL Sodium (137-145) mmol/L BUN (9-20) mg/dL Glucose (74-99) mg/dL POC Glucose (mg/dL) 118 H 147 H (75-99) mg/dL Calcium (8.4-10.2) mg/dL AST (17-59) U/L Total Protein (6.3-8.2) g/dL Albumin (3.5-5.0) g/dL Crossmatch Assessment and Plan Assessment: (1) Mitral valve regurgitation Current Visit: Yes Status: Acute Code(s): I34.0 - NONRHEUMATIC MITRAL (VALVE) INSUFFICIENCY SNOMED Code(s): 17569114 (2) Bioprosthetic mitral valve replacement, current hospitalization Current Visit: Yes Status: Acute Code(s): Z95.3 - PRESENCE OF XENOGENIC HEART VALVE SNOMED Code(s): 45436991649406 (3) Status post repair of supravalvar aortic stenosis Current Visit: Yes Status: Acute Code(s): Z87.74 - PERSONAL HISTORY OF CONGENITAL MALFORM OF HEART AND CIRC SYS SNOMED Code(s): 513832104 (4) Hypertensive cardiovascular disease Current Visit: Yes Status: Acute Code(s): I11.9 - HYPERTENSIVE HEART DISEASE WITHOUT HEART FAILURE SNOMED Code(s): 16878957 (5) Hyperlipidemia Current Visit: Yes Status: Acute Code(s): E78.5 - HYPERLIPIDEMIA, UNSPECIFIED SNOMED Code(s): 54932636 (6) Hypothyroidism Current Visit: Yes Status: Acute Code(s): E03.9 - HYPOTHYROIDISM, UNSPECIFIED SNOMED Code(s): 95382555 (7) acute blood loss anemia, postoperative, expected, suspect dilutional (8) acute renal insufficiency (9) hyponatremia, mild (10) A. fib with RVR in a patient with chronic persistent atrial fibrillation status post Maze procedure, status post amiodarone drip, converted to oral. Plan: Continue current medication regime ,monitoring and symptomatic treatment. Aggressive pulmonary toileting with incentive spirometer reinforced. Antiarrhythmics of amiodarone- bradycardic, beta mukesh decreased. Mediastinal chest tube being discontinued. Increase ambulation as tolerated. Cleared by cardio thoracic surgery for transfer out of ICU. Follow closely with multiple consults. The impression and plan of care has been dictated as directed. : I performed a history and examination of this patient, discussed the same with the dictator. I agree with the dictator's note ,documented as a scribe. Any additional findings or plans will be noted.
[2020-09-21 12:12] LABS: Glucose,Whole Blood 140 mg/dL (75-99)
[2020-09-21] MEDS: INSULIN ASPART (NovoLOG) 100 UNIT/ML VIAL SQ SCH ×3 (12:14→20:48)
--- NOTE | 2020-09-21 16:42 | P.PN ---
Subjective Progress Note Date: 09/21/20 Principal diagnosis: Valvular heart disease this is a 64-year-old male patient who has valvular heart disease with severe mitral regurgitation. Tricuspid regurgitation and exertional dyspnea addition to chronic atrial fibrillation. The patient also has history of hypertension, hyperlipidemia, hypothyroidism and an inguinal hernia bilateral. He does have also symptoms obstructive sleep apnea although this has not been officially diagnosed. His preop ejection fraction was in the order of 50% based on the ALEXY and The Patient Severe Concentric LVH, Severe Mitral Regurgitation, Ifib-Yk-Sbmhqhkg Aortic Regurgitation and Aortic Valve of 1.13 Cm Mild to Moderate Tricuspid Regurgitation. Based on his symptomatic valvular heart disease, the patient was taken to the operating room today and the patient underwent a mitral valve replacement and a tricuspid valve repair. The patient postop was brought into the intensive care unit for further evaluation and treatment. he patient arrived on a mechanical ventilator within assist-control mode at a rate of 12 with a tidal volume of 600 and FiO2 of 100% and a PEEP of 8. Initial blood gas showed a pH of 7.29 with a pCO2 of 52 and pO2 of 91. The this is a ventilator changes were done. The patient was admitted with Precedex. The patient had a cardiac index of 5.0 with a cardiac output of 11.5. He was on milrinone running at 0.3 g per KG per minute and norepinephrine infusion running at 0.05 g per KG per minute. the pulmonary artery pressures are 34/12. The patient is also on insulin drip at 6 units an hour and the patient is also on amiodarone drip at 1 mg per minute. His cardiac rhythm is sinus. Urine output is in order of 30 mL an hour. The patient has a mediastinal chest tube in the right pleural chest tube. Output from the right pleural chest tube has been minimal and the mediastinal chest tu be output has been in the order of 400 mL. The current hemoglobin is at 13.4. On 09/20/2020, the patient is extubated and the patient is doing well sitting up on a chair, comfortable without any significant respiratory distress. Currently the patient liters of oxygen by nasal cannula. The patient has a right-sided and a mediastinal chest tube which are placed to low continuous suction at -20 cm of water. There is no evidence of any air leak. The chest x-ray from today shows adequate expansion of both lungs. Hemodynamically, the patient has a cardiac output of 7.4 with an index of 3.2. Pulmonary artery pressures of 56/15. The CVP is at 9. The patient was taken off the norepinephrine infusion. The milrinone infusion is being gradually weaned off and currently is down to 0.15 Pascual respiratory gram per minute. Noted the patient also developed atrial fibrillation and the patient is currently on amiodarone drip at 0.5 mg per minute. The heart rate is controlled for now. Note that the patient went into atrial fibrillation for. Hours and subsequently converted back to normal sinus rhythm. Insulin drip is running at 5.5 units an hour. The patient will ultimately be on amiodarone. The right pleural chest tube is draining down 70mL an hour. Output from the recent chest tube is in order of 30 mL an hour. The patient is awake and alert. The patient is seen today 09/21/2020 in follow-up in the intensive care unit. He is currently sitting up in a chair at the bedside. Awake and alert in no acute distress. He denies any worsening shortness of breath, cough or c ongestion. His pain is well controlled. He is working well with the incentive spirometer. Right IJ [place]-Hoa catheter in place. Cardiac output 7.7. Cardiac index 3.3. PA pressures 42/18 with a CVP of 14. Pulmicort drip will be discontinued today. He remains on oral amiodarone. He did have persistent atrial fibrillation following the surgery. He is currently bradycardiac remains in A. fib. He is maintaining good O2 saturations in the 90s on room air. His x-ray reveals a left lower lobe infiltrate. Small left pleural effusion. Resolution of previous minimal right pneumothorax. Right-sided chest tube remains in place. Objective - Vital Signs Vital signs: Vital Signs Temp 98.6 F 09/21/20 12:30 Pulse 58 L 09/21/20 16:00 Resp 24 09/21/20 16:00 BP 114/62 09/21/20 14:30 Pulse Ox 94 L 09/21/20 15:00 Intake & Output 09/20/20 09/21/20 09/21/20 18:59 06:59 18:59 Intake Total 5188.700 5256.933 609.726 Output Total 830 625 665 Balance 867.337 389.933 -55.274 Weight 119 kg 118.3 kg Intake: IV 819 628 397 CO/CI 50 150 Pressure bags 0.9 99 108 57 Sodium Chloride 0.9% 1, 520 370 190 000 ml @ 20 mls/hr IV . Q24H JAMESON Rx#:[id number] ceFAZolin 2 gm In Sodium 150 150 Chloride 0.9% 50 ml @ 100 mls/hr IVPB Q8HR J[facility]ON Rx# :[id number] Intake, IV Titration 628.337 136.933 12.726 Amount Amiodarone 300 mg In 463.333 Dextrose 5% in Water 250 ml @ 0.5 MG/MIN 25 mls/hr IV .Q10H JAMESON Rx#: [id number] Insulin Regular 100 unit 37.218 36.933 12.726 In Sodium Chloride 0.9% 100 ml @ Per Protocol IV .Q0M J[facility]ON Rx#:[id number] Magnesium Sulfate-D5w Pmx 100 1 gm In Dextrose/Water 1 100ml.bag @ 100 mls/hr IVPB Q1H [facility]ON Rx#: [id number] Milrinone-D5w Pmx 20 mg 100 In Dextrose/Water 1 100ml .bag @ 0.15 MCG/KG/MIN 5. 021 mls/hr IV .[id number] JAMESON Rx#:[id number] Milrinone-D5w Pmx 20 mg 27.786 In Dextrose/Water 1 100ml .bag @ 0.3 MCG/KG/MIN 10. 043 mls/hr IV .Q9H58M JAMESON Rx#:[id number] Oral 250 250 200 Output: Chest Tube Drainage 245 220 90 Bilateral Mediastinal 190 90 40 Right Anterior Chest 55 130 50 Urine 585 405 575 Other: Voiding Method Indwelling Catheter Indwelling Catheter Urinal ABP, PAP, CO, CI - Last Documented Arterial Blood Pressure 118/53 Pulmonary Artery Pressure 47/18 Cardiac Output 7.7 Cardiac Index 3.3 - Exam GENERAL EXAM: Alert, active, very pleasant 64-year-old gentleman, up in a chair at the bedside, on room air, comfortable in no apparent distress. HEAD: Normocephalic. EYES: Normal reaction of pupils, equal size. NOSE: Clear with pink turbinates. THROAT: No erythema or exudates. NECK: No masses, no JVD. CHEST: Sternal dressing dry and intact. Heart upper in place. No chest wall deformity. LUNGS: Equal air entry with basilar crackles left greater than right. CVS: S1 and S2 normal with no audible murmur, regular rhythm. ABDOMEN: No hepatosplenomegaly, normal bowel sounds, no guarding or rigidity. SPINE: No scoliosis or deformity SKIN: No rashes CENTRAL NERVOUS SYSTEM: No focal deficits, tone is normal in all 4 extremities. EXTREMITIES: There is no peripheral edema. No clubbing, no cyanosis. Per ipheral pulses are intact. - Labs CBC & Chem 7: 09/21/20 04:05 09/21/20 04:05 Labs: Abnormal Lab Results - Last 24 Hours (Table) 09/14/20 09/20/20 09/20/20 Range/Units 09:00 17:33 18:52 RBC (4.30-5.90) m/uL Hgb (13.0-17.5) gm/dL Hct (39.0-53.0) % Plt Count (150-450) k/uL Neutrophils # (1.3-7.7) k/uL Sodium (137-145) mmol/L BUN (9-20) mg/dL Glucose (74-99) mg/dL POC Glucose (mg/dL) 159 H 132 H (75-99) mg/dL Calcium (8.4-10.2) mg/dL AST (17-59) U/L Total Protein (6.3-8.2) g/dL Albumin (3.5-5.0) g/dL Crossmatch See Detail 09/20/20 09/20/20 09/20/20 Range/Units 20:04 22:00 23:55 RBC (4.30-5.90) m/uL Hgb (13.0-17.5) gm/dL Hct (39.0-53.0) % Plt Count (150-450) k/uL Neutrophils # (1.3-7.7) k/uL Sodium (137-145) mmol/L BUN (9-20) mg/dL Glucose (74-99) mg/dL POC Glucose (mg/dL) 130 H 121 H 101 H (75-99) mg/dL Calcium (8.4-10.2) mg/dL AST (17-59) U/L Total Protein (6.3-8.2) g/dL Albumin (3.5-5.0) g/dL Crossmatch 09/21/20 09/21/20 09/21/20 Range/Units 02:10 04:05 04:05 RBC 3.14 L (4.30-5.90) m/uL Hgb 9.6 L D (13.0-17.5) gm/dL Hct 28.3 L (39.0-53.0) % Plt Count 87 L (150-450) k/uL Neutrophils # 8.1 H (1.3-7.7) k/uL Sodium 132 L (137-145) mmol/L BUN 21 H (9-20) mg/dL Glucose 115 H (74-99) mg/dL POC Glucose (mg/dL) 128 H (75-99) mg/dL Calcium 8.0 L (8.4-10.2) mg/dL AST 64 H (17-59) U/L Total Protein 4.9 L (6.3-8.2) g/dL Albumin 2.9 L (3.5-5.0) g/dL Crossmatch 09/21/20 09/21/20 09/21/20 Range/Units 04:06 06:43 09:30 RBC (4.30-5.90) m/uL Hgb (13.0-17.5) gm/dL Hct (39.0-53.0) % Plt Count (150-450) k/uL Neutrophils # (1.3-7.7) k/uL Sodium (137-145) mmol/L BUN (9-20) mg/dL Glucose (74-99) mg/dL POC Glucose (mg/dL) 118 H 147 H 139 H (75-99) mg/dL Calcium (8.4-10.2) mg/dL AST (17-59) U/L Total Protein (6.3-8.2) g/dL Albumin (3.5-5.0) g/dL Crossmatch 09/21/20 Range/Units 12:09 RBC (4.30-5.90) m/uL Hgb (13.0-17.5) gm/dL Hct (39.0-53.0) % Plt Count (150-450) k/uL Neutrophils # (1.3-7.7) k/uL Sodium (137-145) mmol/L BUN (9-20) mg/dL Glucose (74-99) mg/dL POC Glucose (mg/dL) 140 H (75-99) mg/dL Calcium (8.4-10.2) mg/dL AST (17-59) U/L Total Protein (6.3-8.2) g/dL Albumin (3.5-5.0) g/dL Crossmatch Assessment and Plan Assessment: 1 valvular heart disease with severe mitral regurgitation and tricuspid regurgitation post mitral valve replacement and tricuspid valve repair. The patient is postop day #2. 2 post thoracotomy, the patient is currently extubated the patient was activated yesterday without any major difficulties and currently the patient is on room air. 3atrial fibrillation, history of current rhythm is sinus, and overnight the patient went into A. fib RVR and the patient was loaded and maintain with amiodarone. This was switched to oral. The patient is currently in atrial fibrillation with controlled ventricular rate. 4 hypertension 5 hypothyroidism 6 COPD 7 inguinal hernia Plan The patient was seen and evaluated by Dr. Guevara Chest x-ray and labs reviewed Maintaining oral amiodarone To be transferred out of the ICU later today Encourage regarding the increased use the incentive spirometer and cough and deep breathing exercises We'll continue to follow I, the cosigning physician, performed a history & physical examination of the patient. Lungs sounds with basilar crackles left greater than right. M aintaining good O2 saturations in the 90s on room air. I discussed the assessment and plan of care with my nurse practitioner, Nicole Vigil. I attest to the above note as dictated by her.
[2020-09-21 20:14] LABS: Glucose,Whole Blood 159 mg/dL (75-99)
[2020-09-21] MEDS: SENNOSIDES-DOCUSATE SODIUM 1 EACH TAB PO SCH (20:38)
[2020-09-22] MEDS: KETOROLAC 15 MG/ML 1 ML VIAL IVP SCH ×3 (00:03→11:46)
[2020-09-22] MEDS: HEPARIN SODIUM,PORCINE 5,000 UNIT/ML 1 ML VIAL SQ SCH ×3 (00:03→17:17)
[2020-09-22 06:06] LABS: Glucose,Whole Blood 129 mg/dL (75-99)
[2020-09-22] MEDS: PANTOPRAZOLE 40 MG TABLET PO SCH (07:04)
[2020-09-22] MEDS: LEVOTHYROXINE 50 MCG TAB PO SCH (07:04)
[2020-09-22] MEDS: INSULIN ASPART (NovoLOG) 100 UNIT/ML VIAL SQ SCH ×4 (07:08→21:22)
[2020-09-22] MEDS ORDERED: ACETAMINOPHEN TAB 500 MG TAB PO PRN (08:44)
[2020-09-22] MEDS: IPRATROPIUM-ALBUTEROL 3 ML NEB INHALATION SCH ×4 (08:48→19:42)
[2020-09-22] MEDS: AMIODARONE 200 MG TAB PO SCH ×3 (08:49→21:25)
[2020-09-22] MEDS: ATORVASTATIN 40 MG TAB PO SCH (08:49)
[2020-09-22] MEDS: ASPIRIN 325 MG TAB PO SCH (08:50)
[2020-09-22] MEDS: CLOPIDOGREL 75 MG TAB PO SCH (08:50)
[2020-09-22] MEDS: METOPROLOL TARTRATE 12.5 MG TAB PO SCH ×2 (08:50→21:25)
--- NOTE | 2020-09-22 08:53 | XR ---
EXAMINATION TYPE: XR chest 1V portable DATE OF EXAM: 09/22/2020 COMPARISON: 09/21/2020 INDICATION: Postop cardiac surgery TECHNIQUE: Single frontal view of the chest is obtained. FINDINGS: The heart size is mildly prominent. Sternotomy wires are present from cardiac valve surgery.. The pulmonary vasculature is normal. Small left pleural effusion is present. The [place]-Hoa catheter is been removed. Mediastinal tubes hav e been removed. Right-sided chest tube remains present. No pneumothorax is evident. IMPRESSION: 1. Mild cardiomegaly. 2. Small left pleural effusion. 3. Right-sided chest tube remains present.
[2020-09-22 09:13] LABS: HCT 30.2 % (39.0-53.0); HGB 10.4 gm/dL (13.0-17.5); MCH 32.2 pg (25.0-35.0); MCHC 34.3 g/dL (31.0-37.0); MCV 93.8 fL (80.0-100.0); Mean Platelet Volume 8.4; RBC 3.22 m/uL (4.30-5.90); RDW 13.6 % (11.5-15.5); WBC 7.7 k/uL (3.8-10.6)
[2020-09-22 09:26] LABS: Platelet Count 96 k/uL (150-450)
[2020-09-22 09:32] LABS: Albumin 3.4 g/dL (3.5-5.0); Calcium 8.5 mg/dL (8.4-10.2); Potassium 4.5 mmol/L (3.5-5.1); Total Bilirubin 0.9 mg/dL (0.2-1.3); Total Protein 5.8 g/dL (6.3-8.2)
--- NOTE | 2020-09-22 10:29 | PN ---
PROGRESS NOTE Mr. Galloway is a 64-year-old male with a history of atrial fibrillation, severe mitral regurgitation. He underwent mitral valve repair. He is feeling better today. His breathing is better. He is denying any chest pain. He is feeling stronger. He continued to be in atrial fibrillation with controlled ventricular response. He is using his incentive spirometry and increased his level of activity. He continues to be at this time on aspirin once a day, Lipitor 40 mg daily, Plavix 75 mg daily, metoprolol tartrate 12.5 mg twice a day. PHYSICAL EXAMINATION: Blood pressure 123/60 with a heart rate in 50s. LUNGS: With a few crackles at the bases. HEART: Irregular, regular, S1, S2. No S3. No rub. ABDOMEN: Soft, nontender. EXTREMITIES: No edema. IMPRESSION: 1. Status post mitral valve repair. 2. Atrial fibrillation status post MAZE procedure. 3. History of hypertension. RECOMMENDATION: I would recommend to initiate anticoagulation with because of the atrial fibrillation and stop the aspirin Plavix. Continue incentive spirometry increase his level activity. I am hopeful he will be able to be discharged in the next 24-48 hours and if he remains in atrial fibrillation, he will be readmitted in 4 to 6 weeks to undergo cardioversion. MMODL / IJN: [id number] /
--- NOTE | 2020-09-22 10:44 | P.PN ---
Subjective Progress Note Date: 09/22/20 Mitral valve replacement with aortic valve repair Mr. Galloway is a pleasant 64-year-old male who first presented to my office with acute shortness of breath and symptoms of congestive heart failure. He is noted to have a loud systolic murmur he underwent echocardiogram and cardiac evaluation is found to have valvular heart disease with intermitting atrial fibrillation. Patient underwent open heart surgery for repair of the valves. Also asked to consult participate for medical management. Patient also suffers from hypertension hyperlipidemia and hypothyroidism CURRENTLY under management. Patient is seen after surgery with some discomfort due to chest tube insertion however he is doing quite well and extubated and talking freely. 09/21/2020 sitting up in chair, reports he ambulated in hallway yesterday, tolerating exertion well. Telemetry reporting atrial fibrillation, controlled ventricular rate.Primacor drip recently weaned off . Maintaining O2 sats in the 90s on 2 L nasal cannula. Received Lasix IV push 1 this morning. Incentive spirometer up to 1700. Pain controlled. Passing flatus. T-max 100, WBC within normal limits. Chest x-ray reporting left lower lobe infiltrate, small left pleural effusion, resolution of previous minimal right pneumothorax. Blood sugars controlled. Hemoglobin 9.6, sodium 132. Renal function mildly worsened with creatinine 1.14. 09/22/2020 transferred out of ICU yesterday to telemetry floor. Afebrile, normal WBC. BUN 28, creatinine 1.19. Hemoglobin trending up to 10.4, platelets 96. Chest tube reported to be discontinued today. Incentive spirometer up to 1700. Chest x-ray reporting small left pleural effusion. Maintaining O2 sats in the high 90s on room air. Good diet intake, passing flatus, no bowel movement. Has not yet ambulated this morning, he ambulated yesterday, tolerating exertion well. Pain controlled. Objective - Vital Signs Vital signs: Vital Signs Temp 98.9 F 09/22/20 04:00 Pulse 68 09/22/20 09:00 Resp 20 09/22/20 04:00 BP 123/66 09/22/20 04:00 Pulse Ox 96 09/22/20 04:00 Intake & Output 09/21/20 09/22/20 09/22/20 18:59 06:59 18:59 Intake Total 849.726 Output Total 665 620 Balance 184.726 -620 Weight 120.9 kg Intake: IV 397 Pressure bags 0.9 57 Sodium Chloride 0.9% 1, 190 000 ml @ 20 mls/hr IV . Q24H [facility] Rx#:[id number] ceFAZolin 2 gm In Sodium 150 Chloride 0.9% 50 ml @ 100 mls/hr IVPB Q8HR [facility] Rx# :[id number] Intake, IV Titration 12.726 Amount Insulin Regular 100 unit 12.726 In Sodium Chloride 0.9% 100 ml @ Per Protocol IV .Q0M [facility]ON Rx#:[id number] Oral 440 Output: Chest Tube Drainage 90 70 Bilateral Mediastinal 40 Right Anterior Chest 50 70 Urine 575 550 Other: Voiding Method Urinal Toilet # Voids 1 ABP, PAP, CO, CI - Last Documented Arterial Blood Pressure 118/53 Pulmonary Artery Pressure 47/18 Cardiac Output 7.7 Cardiac Index 3.3 - Exam GENERAL: Sitting up in chair, no acute distress. HEENT: Head is atraumatic, normocephalic. Pupils are equal, round, and reactive to light. Sclerae anicteric. Conjunctivae are clear. Mucus membranes of the mouth are moist. Neck is supple. RESPIRATORY: Clear to auscultation. No wheezes, rales, or rhonchi. Right pleural chest tube present. CARDIOVASCULAR: Regular S1 and S2, no murmur. GASTROINTESTINAL: No distention noted. Abdomen soft and round. Normal active bowel sounds auscultated x 4 quadrants. No pain or tenderness noted upon palpation. INTEGUMENTARY: No cyanosis. No jaundice. No rashes noted. No cellulitis noted. EXTREMITIES: 2+ peripheral pulses. No evidence of peripheral edema. No calf tenderness noted. NEUROLOGIC: Cranial nerves II-XII intact. PSYCHIATRIC: Awake, alert, and oriented X 3. Appropriate affect. Intact judgement and insight. - Labs CBC & Chem 7: 09/22/20 08:23 09/22/20 08:23 Labs: Abnormal Lab Results - Last 24 Hours (Table) 09/21/20 09/21/20 09/22/20 Range/Units 12:09 20:13 06:05 RBC (4.30-5.90) m/uL Hgb (13.0-17.5) gm/dL Hct (39.0-53.0) % Plt Count (150-450) k/uL Sodium (137-145) mmol/L BUN (9-20) mg/dL Glucose (74-99) mg/dL POC Glucose (mg/dL) 140 H 159 H 129 H (75-99) mg/dL Total Protein (6.3-8.2) g/dL Albumin (3.5-5.0) g/dL 09/22/20 09/22/20 Range/Units 08:23 08:23 RBC 3.22 L (4.30-5.90) m/uL Hgb 10.4 L (13.0-17.5) gm/dL Hct 30.2 L (39.0-53.0) % Plt Count 96 L (150-450) k/uL Sodium 134 L (137-145) mmol/L BUN 28 H (9-20) mg/dL Glucose 114 H (74-99) mg/dL POC Glucose (mg/dL) (75-99) mg/dL Total Protein 5.8 L (6.3-8.2) g/dL Albumin 3.4 L (3.5-5.0) g/dL Assessment and Plan Assessment: (1) Mitral valve regurgitation Current Visit: Yes Status: Acute Code(s): I34.0 - NONRHEUMATIC MITRAL (VALVE) INSUFFICIENCY SNOMED Code(s): 93190867 (2) Bioprosthetic mitral valve replacement, current hospitalization Current Visit: Yes Status: Acute Code(s): Z95.3 - PRESENCE OF XENOGENIC HEART VALVE SNOMED Code(s): 89215395755192 (3) Status post repair of supravalvar aortic stenosis Current Visit: Yes Status: Acute Code(s): Z87.74 - PERSONAL HISTORY OF CONGENITAL MALFORM OF HEART AND CIRC SYS SNOMED Code(s): 165177548 (4) Hypertensive cardiovascular disease Current Visit: Yes Status: Acute Code(s): I11.9 - HYPERTENSIVE HEART DISEASE WITHOUT HEART FAILURE SNOMED Code(s): 35126148 (5) Hyperlipidemia Current Visit: Yes Status: Acute Code(s): E78.5 - HYPERLIPIDEMIA, UNSPECIFIED SNOMED Code(s): 53596894 (6) Hypothyroidism Current Visit: Yes Status: Acute Code(s): E03.9 - HYPOTHYROIDISM, UNSPECIFIED SNOMED Code(s): 95978213 (7) acute blood loss anemia, postoperative, expected, suspect dilutional (8) acute renal insufficiency (9) hyponatremia, mild (10) A. fib with RVR in a patient with chronic persistent atrial fibrillation s tatus post Maze procedure, status post amiodarone drip, converted to oral. Plan: Continue current medication regime ,monitoring and symptomatic treatment. Increase ambulation as tolerated. Continue aggressive pulmonary toileting with incentive spirometer reinforced. Discharge planning in progress as per cardiothoracic surgery, possibly tomorrow. The impression and plan of care has been dictated as directed. : I performed a history and examination of this patient, discussed the same with the dictator. I agree with the dictator's note ,documented as a scribe. Any additional findings or plans will be noted.
[2020-09-22] MEDS ORDERED: FUROSEMIDE 10 MG/ML 4 ML VIAL IV STA (10:56)
[2020-09-22 11:40] LABS: Glucose,Whole Blood 132 mg/dL (75-99)
[2020-09-22] MEDS: LOSARTAN 25 MG TAB PO SCH (11:54)
--- NOTE | 2020-09-22 13:19 | P.PN ---
Subjective Progress Note Date: 09/22/20 Principal diagnosis: Severe mitral valve regurgitation with prolapse of P2, moderate tricuspid valve regurgitation, mild aortic valve regurgitation. Past medical history significa nt for hypertension, hyperlipidemia, hypothyroidism, persistent atrial fibrillation with dilated atria, mild left ventricular dysfunction and previous tobacco dependence. POD #2 complex mitral valve repair with construction of 3 pairs of chelsea-chords to P2 with complete ring annuloplasty using a 38 mm physio-2 ring. Tricuspid valve repair using a 30 mm MC 3 ring. Full biatrial maze procedure using radiofrequency and cryoablation. Exclusion of the left atrial appendage using a 40 mm Atriclip. Intraoperative transesophageal echocardiogram and epi-aortic scanning. Postoperative acute blood loss anemia, expected, dilutional. Postoperative atrial fibrillation, expected as the patient had preoperative atrial fibrillation. The patient was seen today 09/22/2020 at his bedside on the cardiac stepdown unit. Currently he is sitting up to the bedside chair, is awake, alert and oriented 3 and is in no acute distress. Denies any complaints of pain or shortness of breath at this time. Remains hemodynamically stable and is currently on no inotropic or pressor support. Oxygen saturation are 96% on room air and he is achieving 1750 mL on his incentive spirometry with encouragement. Right pleural chest tube remains in place to low continuous wall suction -20 cm H2O. No air leak is present. 70 mL output in the last 8 hours of thin serosanguineous drainage and 150 mL output in the last 24 hours. He reports he has been ambulating in the cardiac stepdown unit hallway with minimal assistance with nursing staff and physical/occupational therapy. Remote telemetry showing atrial fibrillation heart rate 51 BPM. Objective - Vital Signs Vital signs: Vital Signs Temp 98.3 F 09/22/20 12:00 Pulse 68 09/22/20 12:03 Resp 18 09/22/20 12:00 BP 132/68 09/22/20 12:00 Pulse Ox 95 09/22/20 12:00 Intake & Output 09/21/20 09/22/20 09/22/20 18:59 06:59 18:59 Intake Total 849.726 120 Output Total 665 620 Balance 184.726 -620 120 Weight 120.9 kg Intake: IV 397 Pressure bags 0.9 57 Sodium Chloride 0.9% 1, 190 000 ml @ 20 mls/hr IV . Q24H [facility] Rx#:[id number] ceFAZolin 2 gm In Sodium 150 Chloride 0.9% 50 ml @ 100 mls/hr IVPB Q8HR [facility] Rx# :[id number] Intake, IV Titration 12.726 Amount Insulin Regular 100 unit 12.726 In Sodium Chloride 0.9% 100 ml @ Per Protocol IV .Q0M [facility] Rx#:[id number] Oral 440 120 Output: Chest Tube Drainage 90 70 Bilateral Mediastinal 40 Right Anterior Chest 50 70 Urine 575 550 Other: Voiding Method Urinal Toilet Toilet # Voids 1 1 ABP, PAP, CO, CI - Last Documented Arterial Blood Pressure 118/53 Pulmonary Artery Pressure 47/18 Cardiac Output 7.7 Cardiac Index 3.3 - Constitutional General appearance: Present: cooperative, no acute distress, obese - EENT Eyes: Present: normal appearance. Absent: scleral icterus ENT: Present: hearing grossly normal - Neck Details: Neck is supple, no JVD, no lymphadenopathy. - Respiratory Details: Lung sounds essentially clear throughout, diminished to his bilateral bases. No wheezes, rhonchi or crackles. Respirations are symmetrical and nonlabored. Oxygen saturation is 96% on room air. Achieving 1750 mL on his incentive spirom etry. Right pleural chest tube remains in place to low continuous wall suction -20 cm H2O. No air leak is present. Draining thin serosanguineous drainage with 70 mL output in the last 8 hours 150 mL output in the last 24 hours. - Cardiovascular Details: Irregular rhythm and bradycardic rate. S1 and S2 present, negative for S3, gallop or murmur. Sternum is stable. Remote telemetry showing atrial fibrillation heart rate 51 BPM. Atrial and ventricular epicardial pacemaker wires in place and grounded. No edema present. Knee-high [employer] hose and sequen tial compression devices in place to his bilateral lower extremities. Heart hugger is in place and he is demonstrating appropriate use. - Gastrointestinal Gastrointestinal Comment(s): Abdomen is soft, nontender and nondistended. Active bowel sounds present in all 4 abdominal quadrants. No guarding or rigidity. No organomegaly appreciated. Tolerating oral intake. Passing flatus. - Genitourinary Genitourinary Comment(s): Continues to void. 550 mL of urine output in the last 8 hours. - Integumentary Integumentary Comment(s): Skin is warm and dry. No clubbing or cyanosis is present. Midline sternal incision is clean, dry and approximated. No drainage or redness is present. Dressing is clean, dry and intact. - Neurologic Neurologic: Present: CNII-XII intact - Musculoskeletal Musculoskeletal: Present: gait normal, strength equal bilaterally - Psychiatric Psychiatric: Present: A&O x's 3, appropriate affect, intact judgment & insight - Allied health notes Allied health notes reviewed: nursing - Labs CBC & Chem 7: 09/22/20 08:23 09/22/20 08:23 Labs: Abnormal Lab Results - Last 24 Hours (Table) 09/21/20 09/22/20 09/22/20 Range/Units 20:13 06:05 08:23 RBC 3.22 L (4.30-5.90) m/uL Hgb 10.4 L (13.0-17.5) gm/dL Hct 30.2 L (39.0-53.0) % Plt Count 96 L (150-450) k/uL Sodium (137-145) mmol/L BUN (9-20) mg/dL Glucose (74-99) mg/dL POC Glucose (mg/dL) 159 H 129 H (75-99) mg/dL Total Protein (6.3-8.2) g/dL Albumin (3.5-5.0) g/dL 09/22/20 09/22/20 Range/Units 08:23 11:40 RBC (4.30-5.90) m/uL Hgb (13.0-17.5) gm/dL Hct (39.0-53.0) % Plt Count (150-450) k/uL Sodium 134 L (137-145) mmol/L BUN 28 H (9-20) mg/dL Glucose 114 H (74-99) mg/dL POC Glucose (mg/dL) 132 H (75-99) mg/dL Total Protein 5.8 L (6.3-8.2) g/dL Albumin 3.4 L (3.5-5.0) g/dL - Imaging and Cardiology Chest x-ray: report reviewed, image reviewed Assessment and Plan Assessment: 1. Severe mitral valve regurgitation, status post mitral valve repair 2. Moderate tricuspid valve regurgitation, status post tricuspid valve repair 3. Mild aortic valve regurgitation 4. History of hypertension 5. History of hyperlipidemia 6. Hypothyroidism 7. Persistent atrial fibrillation, status post modified Maze procedure and clipping of the left atrial appendage using a Atriclip 8. Mild left ventricular dysfunction 9. Previous tobacco dependence 10. Postoperative acute blood loss anemia, expected Plan: 1. Continue to maximize medical therapy with aspirin, Plavix and beta mukesh. Will increase metoprolol tartrate as tolerated. 2. Amiodarone decreased to 200 mg by mouth twice a day for atrial fibrillation prophylaxis. Decreased due to his heart rate being in the 50s. 3. Continue to encourage use of incentive spirometry 10 times every hour while awake. Bronchodilators per pulmonology/critical care management. 4. Will monitor daily labs and chest x-rays. Electrolytes replacement per protocol. 5. GI/DVT prophylaxis. 6. Pain control with current medication regimen. 7. Diabetes/insulin management per Dr. Wan. 8. Lasix 20 mg IV 1 now. 9. Right pleural chest tube removed without incident., 4 x 4 gauze to cover, Vaseline impregnated gauze to cover and secured with tape. 10. Keep atrial and ventricular epicardial pacemaker wires in place and grounded for now. Anticipate removal in the next 24 hours. Once his pacemaker wires are removed we will restart his Eliquis 5 mg by mouth twice a day for anticoagulation. 11. Daily weights using standup scale, no bed scale. 12. Increase activity as tolerated, physical/occupational therapy and cardiac rehab following. 13. Cozaar 25 mg by mouth daily at noon added for afterload reduction. 14. Anticipate discharge home with home health care within the next 24-[address]charge planning in place. 15. More recommendations to follow based on patient's clinical course. Nurse practitioner note has been reviewed by the physician. Signing provider agrees with the above documented findings, assessment and plan of care. The patient was seen and examined. Time with Patient: Greater than 30
--- NOTE | 2020-09-22 16:23 | P.PN ---
Subjective Progress Note Date: 09/22/20 Principal diagnosis: Valvular heart disease this is a 64-year-old male patient who has valvular heart disease with severe mitral regurgitation. Tricuspid regurgitation and exertional dyspnea addition to chronic atrial fibrillation. The patient also has history of hypertension, hyperlipidemia, hypothyroidism and an inguinal hernia bilateral. He does have also symptoms obstructive sleep apnea although this has not been officially diagnosed. His preop ejection fraction was in the order of 50% based on the ALEXY and The Patient Severe Concentric LVH, Severe Mitral Regurgitation, Qmiy-Cm-Rthowxpc Aortic Regurgitation and Aortic Valve of 1.13 Cm Mild to Moderate Tricuspid Regurgitation. Based on his symptomatic valvular heart disease, the patient was taken to the operating room today and the patient underwent a mitral valve replacement and a tricuspid valve repair. The patient postop was brought into the intensive care unit for further evaluation and treatment. he patient arrived on a mechanical ventilator within assist-control mode at a rate of 12 with a tidal volume of 600 and FiO2 of 100% and a PEEP of 8. Initial blood gas showed a pH of 7.29 with a pCO2 of 52 and pO2 of 91. The this is a ventilator changes were done. The patient was admitted with Precedex. The patient had a cardiac index of 5.0 with a cardiac output of 11.5. He was on milrinone running at 0.3 g per KG per minute and norepinephrine infusion running at 0.05 g per KG per minute. the pulmonary artery pressures are 34/12. The patient is also on insulin drip at 6 units an hour and the patient is also on amiodarone drip at 1 mg per minute. His cardiac rhythm is sinus. Urine output is in order of 30 mL an hour. The patient has a mediastinal chest tube in the right pleural chest tube. Output from the right pleural chest tube has been minimal and the mediastinal chest tu be output has been in the order of 400 mL. The current hemoglobin is at 13.4. On 09/20/2020, the patient is extubated and the patient is doing well sitting up on a chair, comfortable without any significant respiratory distress. Currently the patient liters of oxygen by nasal cannula. The patient has a right-sided and a mediastinal chest tube which are placed to low continuous suction at -20 cm of water. There is no evidence of any air leak. The chest x-ray from today shows adequate expansion of both lungs. Hemodynamically, the patient has a cardiac output of 7.4 with an index of 3.2. Pulmonary artery pressures of 56/15. The CVP is at 9. The patient was taken off the norepinephrine infusion. The milrinone infusion is being gradually weaned off and currently is down to 0.15 Pascual respiratory gram per minute. Noted the patient also developed atrial fibrillation and the patient is currently on amiodarone drip at 0.5 mg per minute. The heart rate is controlled for now. Note that the patient went into atrial fibrillation for. Hours and subsequently converted back to normal sinus rhythm. Insulin drip is running at 5.5 units an hour. The patient will ultimately be on amiodarone. The right pleural chest tube is draining down 70mL an hour. Output from the recent chest tube is in order of 30 mL an hour. The patient is awake and alert. The patient is seen today 09/21/2020 in follow-up in the intensive care unit. He is currently sitting up in a chair at the bedside. Awake and alert in no acute distress. He denies any worsening shortness of breath, cough or c ongestion. His pain is well controlled. He is working well with the incentive spirometer. Right IJ [place]-Hoa catheter in place. Cardiac output 7.7. Cardiac index 3.3. PA pressures 42/18 with a CVP of 14. Pulmicort drip will be discontinued today. He remains on oral amiodarone. He did have persistent atrial fibrillation following the surgery. He is currently bradycardiac remains in A. fib. He is maintaining good O2 saturations in the 90s on room air. His x-ray reveals a left lower lobe infiltrate. Small left pleural effusion. Resolution of previous minimal right pneumothorax. Right-sided chest tube remains in place. Patient is seen today 09/22/2020 in follow-up on the regular medical floor. He is currently sitting up in a chair at the bedside. Awake and alert in no acute distress. He is currently on room air and maintaining O2 saturations in the mid 90s. Currently afebrile. Hemodynamically stable. White count 7.7. Hemoglobin 10.4. Sodium 134. Potassium 4.5. Creatinine 1.19. He remains on bronchodilators. He is working well with the incentive spirometer. Up ambulating in the [place] with assistance. Objective - Vital Signs Vital signs: Vital Signs Temp 98.3 F 09/22/20 12:00 Pulse 68 09/22/20 15:20 Resp 18 09/22/20 12:00 BP 132/68 09/22/20 12:00 Pulse Ox 95 09/22/20 12:00 Intake & Output 09/21/20 09/22/20 09/22/20 18:59 06:59 18:59 Intake Total 849.726 960 Output Total 665 620 Balance 184.726 -620 960 Weight 120.9 kg Intake: IV 397 Pressure bags 0.9 57 Sodium Chloride 0.9% 1, 190 000 ml @ 20 mls/hr IV . Q24H [facility] Rx#:[id number] ceFAZolin 2 gm In Sodium 150 Chloride 0.9% 50 ml @ 100 mls/hr IVPB Q8HR [facility] Rx# :[id number] Intake, IV Titration 12.726 Amount Insulin Regular 100 unit 12.726 In Sodium Chloride 0.9% 100 ml @ Per Protocol IV .Q0M [facility] Rx#:[id number] Oral 440 960 Output: Chest Tube Drainage 90 70 Bilateral Mediastinal 40 Right Anterior Chest 50 70 Urine 575 550 Other: Voiding Method Urinal Toilet Toilet # Voids 1 1 ABP, PAP, CO, CI - Last Documented Arterial Blood Pressure 118/53 Pulmonary Artery Pressure 47/18 Cardiac Output 7.7 Cardiac Index 3.3 - Exam GENERAL EXAM: Alert, active, very pleasant 64-year-old gentleman, up in a chair at the bedside, on room air, comfortable in no apparent distress. HEAD: Normocephalic. EYES: Normal reaction of pupils, equal size. NOSE: Clear with pink turbinates. THROAT: No erythema or exudates. NECK: No masses, no JVD. CHEST: Sternal dressing dry and intact. Heart upper in place. No chest wall deformity. LUNGS: Equal air entry with basilar crackles left greater than right. CVS: S1 and S2 normal with no audible murmur, regular rhythm. ABDOMEN: No hepatosplenomegaly, normal bowel sounds, no guarding or rigidity. SPINE: No scoliosis or deformity SKIN: No rashes CENTRAL NERVOUS SYSTEM: No focal deficits, tone is normal in all 4 extremities. EXTREMITIES: There is no peripheral edema. No clubbing, no cyanosis. Peripheral pulses are intact. - Labs CBC & Chem 7: 09/22/20 08:23 09/22/20 08:23 Labs: Abnormal Lab Results - Last 24 Hours (Table) 09/21/20 09/22/20 09/22/20 Range/Units 20:13 06:05 08:23 RBC 3.22 L (4.30-5.90) m/uL Hgb 10.4 L (13.0-17.5) gm/dL Hct 30.2 L (39.0-53.0) % Plt Count 96 L (150-450) k/uL Sodium (137-145) mmol/L BUN (9-20) mg/dL Glucose (74-99) mg/dL POC Glucose (mg/dL) 159 H 129 H (75-99) mg/dL Total Protein (6.3-8.2) g/dL Albumin (3.5-5.0) g/dL 09/22/20 09/22/20 Range/Units 08:23 11:40 RBC (4.30-5.90) m/uL Hgb (13.0-17.5) gm/dL Hct (39.0-53.0) % Plt Count (150-450) k/uL Sodium 134 L (137-145) mmol/L BUN 28 H (9-20) mg/dL Glucose 114 H (74-99) mg/dL POC Glucose (mg/dL) 132 H (75-99) mg/dL Total Protein 5.8 L (6.3-8.2) g/dL Albumin 3.4 L (3.5-5.0) g/dL Assessment and Plan Assessment: 1 valvular heart disease with severe mitral regurgitation and tricuspid regurgitation post mitral valve replacement and tricuspid valve repair. 2 post thoracotomy, the patient is currently extubated the patient was activated yesterday without any major difficulties and currently the patient is on room air. 3atrial fibrillation, history of current rhythm is sinus, and overnight the patient went into A. fib RVR and the patient was loaded and maintain with amiodarone. This was switched to oral. The patient is currently in atrial fibrillation with controlled ventricular rate. 4 hypertension 5 hypothyroidism 6 COPD 7 inguinal hernia Plan The patient was seen and evaluated by Dr. Guevara Chest x-ray and labs reviewed Doing very well and on room air Encourage regarding the increased use the incentive spirometer and cough and deep breathing exercises Probable discharge in the a.m. I, the cosigning physician, performed a history & physical examination of the patient. Lungs sounds with basilar crackles left greater than right. Maint aining good O2 saturations in the 90s on room air. I discussed the assessment and plan of care with my nurse practitioner, Nicole Vigil. I attest to the above note as dictated by her.
[2020-09-22 16:51] LABS: Glucose,Whole Blood 102 mg/dL (75-99)
[2020-09-22 20:13] LABS: Glucose,Whole Blood 127 mg/dL (75-99)
[2020-09-22] MEDS: SENNOSIDES-DOCUSATE SODIUM 1 EACH TAB PO SCH (21:25)
[2020-09-23] MEDS: HEPARIN SODIUM,PORCINE 5,000 UNIT/ML 1 ML VIAL SQ SCH ×2 (00:25→08:30)
[2020-09-23] MEDS ORDERED: TEMAZEPAM 15 MG CAP PO PRN (01:04)
[2020-09-23 05:45] LABS: Glucose,Whole Blood 101 mg/dL (75-99)
[2020-09-23] MEDS: PANTOPRAZOLE 40 MG TABLET PO SCH (06:31)
[2020-09-23] MEDS: INSULIN ASPART (NovoLOG) 100 UNIT/ML VIAL SQ SCH ×2 (06:31→13:01)
[2020-09-23] MEDS: LEVOTHYROXINE 50 MCG TAB PO SCH (06:31)
[2020-09-23] MEDS: IPRATROPIUM-ALBUTEROL 3 ML NEB INHALATION SCH ×2 (07:39→11:43)
--- NOTE | 2020-09-23 08:12 | XR ---
EXAMINATION TYPE: XR chest 2V DATE OF EXAM: 09/23/2020 COMPARISON: 09/22/2020 HISTORY: Shortness of breath TECHNIQUE: Frontal and lateral views of the chest are obtained. FINDINGS: Scattered senescent parenchymal changes noted. Hyperinflation compatible with COPD. Scattered pleural-parenchymal opacities are noted at the lung bases as well as small effusions. Heart size is stable. Mediastinal structures are stable and grossly unremarkable. No evidence for hilar prominence. Degenerative changes dorsal spine. IMPRESSION: 1. Scattered pleural-parenchymal opacities are noted at the lung bases as well as small effusions.
[2020-09-23] MEDS: CLOPIDOGREL 75 MG TAB PO SCH (08:30)
[2020-09-23] MEDS: ASPIRIN 325 MG TAB PO SCH (08:30)
[2020-09-23] MEDS: METOPROLOL TARTRATE 12.5 MG TAB PO SCH (08:30)
[2020-09-23] MEDS: AMIODARONE 200 MG TAB PO SCH (08:30)
[2020-09-23] MEDS: ATORVASTATIN 40 MG TAB PO SCH (08:30)
[2020-09-23] MEDS: LOSARTAN 25 MG TAB PO SCH (08:37)
[2020-09-23 09:21] LABS: Basophils % (A) 1 %; Eosinophils # (A) 0.1 k/uL (0-0.7); Eosinophils % (A) 1 %; HCT 29.1 % (39.0-53.0); HGB 10.3 gm/dL (13.0-17.5); Lymphocytes % (A) 18 %; MCHC 35.3 g/dL (31.0-37.0); MCV 93.5 fL (80.0-100.0); Mean Platelet Volume 8.1; Monocytes # (A) 0.4 k/uL (0-1.0); Monocytes % (A) 8 %; Neutrophils # (A) 3.7 k/uL (1.3-7.7); Neutrophils % (A) 68 %; Platelet Count 115 k/uL (150-450); RBC 3.11 m/uL (4.30-5.90); RDW 13.5 % (11.5-15.5); WBC 5.4 k/uL (3.8-10.6)
--- NOTE | 2020-09-23 09:29 | P.PN ---
Subjective Progress Note Date: 09/23/20 Mitral valve replacement with aortic valve repair Mr. Galloway is a pleasant 64-year-old male who first presented to my office with acute shortness of breath and symptoms of congestive heart failure. He is noted to have a loud systolic murmur he underwent echocardiogram and cardiac evaluation is found to have valvular heart disease with intermitting atrial fibrillation. Patient underwent open heart surgery for repair of the valves. Also asked to consult participate for medical management. Patient also suffers from hypertension hyperlipidemia and hypothyroidism CURRENTLY under management. Patient is seen after surgery with some discomfort due to chest tube insertion however he is doing quite well and extubated and talking freely. 09/21/2020 sitting up in chair, reports he ambulated in hallway yesterday, tolerating exertion well. Telemetry reporting atrial fibrillation, controlled ventricular rate.Primacor drip recently weaned off . Maintaining O2 sats in the 90s on 2 L nasal cannula. Received Lasix IV push 1 this morning. Incentive spirometer up to 1700. Pain controlled. Passing flatus. T-max 100, WBC within normal limits. Chest x-ray reporting left lower lobe infiltrate, small left pleural effusion, resolution of previous minimal right pneumothorax. Blood sugars controlled. Hemoglobin 9.6, sodium 132. Renal function mildly worsened with creatinine 1.14. 09/22/2020 transferred out of ICU yesterday to telemetry floor. Afebrile, normal WBC. BUN 28, creatinine 1.19. Hemoglobin trending up to 10.4, platelets 96. Chest tube reported to be discontinued today. Incentive spirometer up to 1700. Chest x-ray reporting small left pleural effusion. Maintaining O2 sats in the high 90s on room air. Good diet intake, passing flatus, no bowel movement. Has not yet ambulated this morning, he ambulated yesterday, tolerating exertion well. Pain controlled. 09/23/2020 chest tube discontinued yesterday. Maintaining O2 sats in the high 90s on room air. Incentive spirometer up to 1700. Chest x-ray reported by bibasilar scattered pleural parenchymal opacities. Afebrile. Ambulating, tolerating exertion well. Consuming approximately a 50%, no nausea, vomiting or diarrhea. Positive bowel movement. Blood sugars controlled. Objective - Vital Signs Vital signs: Vital Signs Temp 97.9 F 09/23/20 04:00 Pulse 64 09/23/20 07:47 Resp 18 09/23/20 04:00 BP 140/85 09/23/20 04:00 Pulse Ox 96 09/23/20 04:00 Intake & Output 09/22/20 09/23/20 09/23/20 18:59 06:59 18:59 Intake Total 1979 Output Total 350 Balance 1979 - Weight 119.6 kg Intake: Oral 1979 Output: Urine 350 Other: Voiding Method Toilet Toilet # Voids 2 1 ABP, PAP, CO, CI - Last Documented Arterial Blood Pressure 118/53 Pulmonary Artery Pressure 47/18 Cardiac Output 7.7 Cardiac Index 3.3 - Exam GENERAL: Sitting up in chair, no acute distress. HEENT: Head is atraumatic, normocephalic. Pupils are equal, round, and reactive to light. Sclerae anicteric. Conjunctivae are clear. Mucus membranes of the mouth are moist. Neck is supple, no JVD. RESPIRATORY: Clear to auscultation. No wheezes, rales, or rhonchi. Bilateral bases diminished. CARDIOVASCULAR: Regular S1 and S2, no murmur. GASTROINTESTINAL: Soft, No distention, nontender . Normal active bowel sounds auscultated. INTEGUMENTARY: No cyanosis. No jaundice. No rashes noted. No cellulitis noted. EXTREMITIES: 2+ peripheral pulses. No evidence of peripheral edema. No calf tenderness noted. NEUROLOGIC: Cranial nerves II-XII intact. PSYCHIATRIC: Awake, alert, and oriented X 3. Appropriate affect. Intact judgement and insight. - Labs CBC & Chem 7: 09/23/20 08:45 09/22/20 08:23 Labs: Abnormal Lab Results - Last 24 Hours (Table) 09/22/20 09/22/20 09/22/20 Range/Units 08:23 08:23 11:40 RBC 3.22 L (4.30-5.90) m/uL Hgb 10.4 L (13.0-17.5) gm/dL Hct 30.2 L (39.0-53.0) % Plt Count 96 L (150-450) k/uL Sodium 134 L (137-145) mmol/L BUN 28 H (9-20) mg/dL Glucose 114 H (74-99) mg/dL POC Glucose (mg/dL) 132 H (75-99) mg/dL Total Protein 5.8 L (6.3-8.2) g/dL Albumin 3.4 L (3.5-5.0) g/dL 09/22/20 09/22/20 09/23/20 Range/Units 16:49 20:12 05:44 RBC (4.30-5.90) m/uL Hgb (13.0-17.5) gm/dL Hct (39.0-53.0) % Plt Count (150-450) k/uL Sodium (137-145) mmol/L BUN (9-20) mg/dL Glucose (74-99) mg/dL POC Glucose (mg/dL) 102 H 127 H 101 H (75-99) mg/dL Total Protein (6.3-8.2) g/dL Albumin (3.5-5.0) g/dL Assessment and Plan Assessment: (1) Mitral valve regurgitation Current Visit: Yes Status: Acute Code(s): I34.0 - NONRHEUMATIC MITRAL (VALVE) INSUFFICIENCY SNOMED Code(s): 34246413 (2) Bioprosthetic mitral valve replacement, current hospitalization Current Visit: Yes Status: Acute Code(s): Z95.3 - PRESENCE OF XENOGENIC HEART VALVE SNOMED Code(s): 77945902641188 (3) Status post repair of supravalvar aortic stenosis Current Visit: Yes Status: Acute Code(s): Z87.74 - PERSONAL HISTORY OF CONGE NITAL MALFORM OF HEART AND CIRC SYS SNOMED Code(s): 635315222 (4) Hypertensive cardiovascular disease Current Visit: Yes Status: Acute Code(s): I11.9 - HYPERTENSIVE HEART DISEASE WITHOUT HEART FAILURE SNOMED Code(s): 89173681 (5) Hyperlipidemia Current Visit: Yes Status: Acute Code(s): E78.5 - HYPERLIPIDEMIA, UNSPECIFIED SNOMED Code(s): 69682061 (6) Hypothyroidism Current Visit: Yes Status: Acute Code(s): E03.9 - HYPOTHYROIDISM, UNSPECIFIED SNOMED Code(s): 20565473 (7) acute blood loss anemia, postoperative, expected, suspect dilutional (8) acute renal insufficiency (9) hyponatremia, mild (10) A. fib with RVR in a patient with chronic persistent atrial fibrillation status post Maze procedure, status post amiodarone drip, converted to oral. Plan: Continue current medication regime ,monitoring and symptomatic treatment. Significant clinical improvement. Continue increasing ambulation as tolerated. Maintain aggressive pulmonary toileting with incentive spirometer outpatient as previously advised. Discharge planning in progress as per cardiothoracic surgery. Follow-up with PCP, Dr. Wan in 1 week. The impression and plan of care has been dictated as directed. : I performed a history and examination of this patient, discussed the same with the dictator. I agree with the dictator's note ,documented as a scribe. Any additional findings or plans will be noted.
[2020-09-23 09:42] LABS: Calcium 8.4 mg/dL (8.4-10.2); Potassium 4.3 mmol/L (3.5-5.1)
--- NOTE | 2020-09-23 10:25 | PN ---
PROGRESS NOTE Mr. Galloway is a 64-year-old male who has underwent mitral valve repair and maze procedure. He is feeling better today. His breathing is better. He is ambulating. He denies any chest pain. He denies any dizziness or palpitation. He continued to be in atrial fibrillation. Hemodynamically, he is stable. His energy overall is better. He continues to be at this time on amiodarone 200 mg twice a day, Lipitor 40 mg daily, aspirin, Plavix 75 mg daily, and metoprolol tartrate .5 mg twice a day. PHYSICAL EXAMINATION: Blood pressure 140/80 with a heart rate in the 60s. LUNGS: Clear heart irregular regular S1, S2. No S3. No rub appreciated. ABDOMEN: Soft nontender. EXTREMITIES: No edema. LAB DATA: BUN and creatinine 25 and 1.22, potassium 4.3, hemoglobin of 10.3. IMPRESSION: 1. Status post mitral valve repair. 2. Atrial fibrillation persistent. 3. History of hypertension. RECOMMENDATION: I will recommend to stop the aspirin and Plavix and re-initiate treatment with Eliquis 5 mg twice a day increase his activity. I am hopeful he will be able to be discharged home soon and follow up as an outpatient. MMODL / IJN: [id number] /
[2020-09-23] MEDS ORDERED: FUROSEMIDE 10 MG/ML 2 ML VIAL IV STA (10:38)
[2020-09-23 12:00] VITALS: BP 134/72; PULSE 65; RESP 16; TEMP 98
[2020-09-23 12:13] LABS: Glucose,Whole Blood 96 mg/dL (75-99)
[2020-09-23] MEDS ORDERED: FUROSEMIDE 40 MG TAB PO STA (12:58)
--- NOTE | 2020-09-23 14:36 | P.DS ---
Providers Date of admission: 09/19/20 05:33 Expected date of discharge: 09/23/20 Attending physician: Arnold Jack Consults: 09/19/20 12:13 Consult Physician Routine Consulting Provider: Los Guevara Consult Reason/Comments: Surveillance Supervisor Consult: post cardiac surgery Do you want consulting provider notified?: Yes Consult Physician Routine Consulting Provider: Joseph Wan Consult Reason/Comments: Medical management Do you want consulting provider notified?: Yes Consult Physician Routine Consulting Provider: Chad Maxwell Consult Reason/Comments: Head Greenskeeper Consult: post cardiac surgery Do you want consulting provider notified?: Yes Primary care physician: [facility] Course: FINAL DIAGNOSIS: 1. Severe mitral valve regurgitation, status post mitral valve repair 2. Moderate tricuspid valve regurgitation, status post tricuspid valve repair 3. Mild aortic valve regurgitation 4. History of hypertension 5. History of hyperlipidemia 6. Hypothyroidism 7. Persistent atrial fibrillation, status post modified Maze procedure and clipping of the left atrial appendage using a Atriclip 8. Mild left ventricular dysfunction 9. Previous tobacco dependence 10. Postoperative acute blood loss anemia, expected PRINCIPAL PROCEDURE: 1. Complex mitral valve repair with construction of 3 pairs of chelsea-chord to P2 with complete ring annuloplasty using a 38 mm physio-2 ring. 2. Tricuspid valve repair using a 30 mm MC 3 ring. 3. Full bilateral maze procedure using radiofrequency and cryoablation. 4. Exclusion of the left atrial appendage using a 40 mm Atriclip. 5. Intraoperative transesophageal echocardiogram and epi-aortic scanning. HISTORY OF PRESENT ILLNESS: This is a 64-year-old gentleman who is followed by Dr. Joseph Wan on an outpatient basis. He is a past medical history significant for hypertension, hyperlipidemia, hypothyroidism persistent atrial fibrillation and remote history of smoking quit 15 years ago. Recently, the patient has been complaining of progressive shortness of breath and dyspnea on exertion which he has been experiencing for about 6 months. He was seen by Dr. Maxwell from [facility] due to the above-mentioned symptoms. On 08/03/2020 the patient underwent a transesophageal echocardiogram and cardiac catheterization. The cardiac catheterization results demonstrated mild coronary artery disease, mild to moderate pulmonary hypertension and severe mitral valve regurgitation with mildly impaired left ventricular systolic function. During heart catheterization and left ventriculogram was completed which showed an estimated ejection fraction of 45-50%. The transesophageal echocardiogram results showed a normal left ventricular size with an ejection fraction of 50-55%, severe prolapse of the P2 segment of his mitral valve with severe eccentric mitral valve regurgitation, moderate tricuspid valve regurgitation with mild pulmonary hypertension and mild aortic valve regurgitation. Subsequently, due to the patient's symptoms, findings on his cardiac catheterization and transesophageal echocardiogram a consult was placed to Dr. Arnold Jack from cardiothoracic surgery. Dr. Jack met with the patient and the patient's , reviewed the patient's findings on the cardiac catheterization and transesophageal echocardiogram, discussed treatment options including mitral valve repair and tricuspid valve repair. Risks and benefits of the surgical option were discussed with the patient including the STS risk score and knowing and understanding these risks wished to proceed with the surgical option. HOSPITAL COURSE: The patient was admitted to the hospital on 09/19/2020, consent was obtained, he was brought to the preoperative area, prepared in the usual fashion and subsequently taken to the operating room where Dr. Arnold Jack performed a complex mitral valve repair with construction of 3 pairs of chelsea- chord to P2 with complete ring annuloplasty using a 38 mm physio-2 ring, tricuspid valve repair using a 30 mm MC 3 ring, full bilateral maze procedure using radiofrequency and cryoablation, exclusion of the left atrial appendage using a 40 mm Atriclip, and intraoperative transesophageal echocardiogram and epi-aortic scanning. Upon completion of the surgery the patient was transferred to the cardiovascular intensive care unit where he was recovered, monitored hemodynamically and where he progressed cardiac cardiac rehabilitation phase 1. He was extubated, all lines, tubes and supportive drips were discontinued when appropriate and he was transferred to the cardiac stepdown unit for further monitoring and rehabilitation. His oxygen was titrated down, he continued to work with physical and occupational therapy, he was tolerating oral diet, his pain was well controlled and he was ready to be discharged home with [facility] care on postoperative day #4. He has received written and verbal instructions regarding his medications, activity restrictions, signs and symptoms requiring physician notification and his follow-up appointments. The patient did have some postoperative atrial fibrillation which is expected as the patient had persistent preoperative atrial fibrillation, which was treated accordingly. COMPLICATIONS: No postoperative complications. CONSULTATIONS: 1. Dr. Maxwell for cardiology management. 2. Dr. Guevara for pulmonary and ventilator management. 3. Dr. Joseph Wan for medical management. Plan - Discharge Summary Discharge Rx Participant: Yes New Discharge Prescriptions: New RX: Amiodarone [Cordarone] 200 mg PO DAILY #30 tab RX: Losartan [Cozaar] 25 mg PO DAILY #30 tab Furosemide [Lasix] 40 mg PO DAILY #5 tablet RX: Atorvastatin [Lipitor] 40 mg PO DAILY #30 tab RX: Metoprolol Tartrate [Lopressor] 12.5 mg PO BID #60 tab RX: Pantoprazole [Protonix] 40 mg PO -HANST #30 tablet. RX: Acetaminophen Tab [Tylenol] 1,000 mg PO Q6HR PRN tab PRN Reason: Fever And/ Or Pain Continue RX: Levothyroxine Sodium [Synthroid] 50 mcg PO DAILY RX: Albuterol Sulfate [Proair Hfa] 1 - 2 puff INHALATION Q6HR PRN PRN Reason: Dyspnea RX: Apixaban [Eliquis] 5 mg PO BID RX: Aspirin EC [Ecotrin Low Dose] 81 mg PO DAILY Discontinued Metoprolol Tartrate [Lopressor] 25 mg PO BID Furosemide [Lasix] 20 mg PO DAILY Losartan Potassium [Cozaar] 50 mg PO PC-SUPPER Discharge Medication List RX: Albuterol Sulfate [Proair Hfa] 1 - 2 puff INHALATION Q6HR PRN 08/01/20 [History] RX: Apixaban [Eliquis] 5 mg PO BID 08/01/20 [History] RX: Levothyroxine Sodium [Synthroid] 50 mcg PO DAILY 08/01/20 [History] RX: Aspirin EC [Ecotrin Low Dose] 81 mg PO DAILY 09/19/20 [History] Furosemide [Lasix] 40 mg PO DAILY #5 tablet 09/23/20 [Rx] RX: Acetaminophen Tab [Tylenol] 1,000 mg PO Q6HR PRN tab 09/23/20 [Rx] RX: Amiodarone [Cordarone] 200 mg PO DAILY #30 tab 09/23/20 [Rx] RX: Atorvastatin [Lipitor] 40 mg PO DAILY #30 tab 09/23/20 [Rx] RX: Losartan [Cozaar] 25 mg PO DAILY #30 tab 09/23/20 [Rx] RX: Metoprolol Tartrate [Lopressor] 12.5 mg PO BID #60 tab 09/23/20 [Rx] RX: Pantoprazole [Protonix] 40 mg PO AC-BRKFST #30 tablet. 09/23/20 [Rx] Follow up Appointment(s)/Referral(s): Chad Maxwell MD [STAFF PHYSICIAN] - 09/28/20 3:00 pm Arnold Jack MD [STAFF PHYSICIAN] - 10/21/20 10:15 am Joseph Wan DO [Primary Care Provider] - 09/28/20 1:00 pm [facility] NPC [Nurse Practitioner] - 09/28/20 3:30 pm [facility], [NON-STAFF] - Los Guevara MD [STAFF PHYSICIAN] - 10/20/20 1:30 pm Ambulatory/Diagnostic Orders: Complete Blood Count w/diff [LAB.AMB] Time Frame: 09/26/20, Facility: [facility], Location: Laboratory [facility] Comprehensive Metabolic Panel [LAB.AMB] Time Frame: 09/26/20, Facility: [facility], Location: [facility] Activity/Diet/Wound Care/Special Instructions: DISCHARGE INSTRUCTIONS: 1. No driving for 4 weeks, or until physician gives their ok. 2. The patient should sleep in their own bed, no medical bed needed. 3. Stairs are not an issue. If the bedroom is upstairs, it is advised that the patient go up at night and down in the morning for the first week. Go slowly, using handrail and take 1 step at a time. 4. AURORA hose are to be worn for 30 days or until physician discontinues. 5. Heart hugger is to be worn 100% of the time until physician discontinues.(except when showering) 6. No lifting, pushing, or pulling more than 10 pounds for 12 weeks. The physician will advise of any restriction changes. 7. The patient is expected to continue the prescribed walking program. 8. Continue pain control per as needed orders. 9. Continue with incentive spirometry and splinting/heart hugger until otherwise directed by the physician. 10. Must shower daily using liquid antibacterial soap and a separate white washcloth for each individual incision. 11. Routine sternal incision care. No powders, lotions, ointments on incisions. No dressings are necessary on incisions unless they are draining. Dermabond tape is to remain on sternal incision until surgeon follow-up. 12. Please call surgeon/WATERWORKS EMPLOYEE for temp greater than 101 F or purulent drainage from incisions. 13. All prescriptions given by surgeon for 30 days. Refills need to be filled through operator and truck driver/primary care physician. 14. A Red armband has been placed on the patient. It should be worn for 30 days post surgery and will be removed by the cardiac surgeons. If an ER visit is necessary, please make sure the number on the Red armband is called. 15. You have been referred to and are expected to begin Cardiac Rehab in approximately 4-6 weeks. en stop 16. Please weigh yourself every morning and keep a log of your daily weights. HOME HEALTH SERVICES TO PROVIDE: RN SKILLED HOME CARE SERVICES FOR POST-OP SURGICAL PATIENTS WITH THE FOLLOWING: Coronary Artery Bypass Surgery (CABG), Mitral Valve Replacement/Rep air ( MVR), Aortic Valve Replacement/Repair (AVR) RN TO CONTINUE EDUCATION FROM ``ROAD TO A HEALTH HEART PATIENT EDUCATION MANUAL (GIVEN TO PATIENT IN THE HOSPITAL) MEDICATION RECONCILIATION WITH EDUCATION NEEDED ON FIRST HOME VISIT EMPHASIZE IMPORTANCE OF WEARING BREAST SUPPORT/HEART HUGGER ENCOURAGE USE OF INCENTIVE SPIROMETER 10 X EVERY HOUR WHILE AWAKE ENCOURAGE UTILIZATION OF LOWER EXTREMITY COMPRESSION STOCKINGS/AURORA HOSE and ELEVATE LEGS ABOVE LEVEL OF HEART WHILE AT REST. ENCOURAGE AMBULATION 3-5x/day INCREASING TOLERATES, WHILE AVOIDING EXTREMES IN TEMPERATURE FREQUENCY: RN TO OPEN THE PATIENT WITHIN 24 HOURS OF DISCHARGE FROM THE HOSPITAL WITH TELEHEALTH INSTALLED AT [facility], RN TO VISIT 2-3 X A WEEK FOR 4 WEEKS ESTABLISHED BY PATIENT NEEDS. LABORATORY: CBC, CMP TO BE DRAWN ON THE THIRD DAY HOME, 09/26/2020 (RAN STAT) FAX RESULTS TO [phone]. TELEHEALTH PARAMETERS: WEIGHT: NOTIFY MD OF WEIGHT GAIN OF 2 LBS IN 24 HOURS OR 5 LBS IN ONE WEEK HR: NOTIFY MD OF HR <55 BPM OR HR>100 BPM BP: NOTIFY MD IF BP <90/55 OR BP>140/100 O2 SAT: NOTIFY MD IF PO2<93% ON ROOM AIR SEND TELEHEALTH REPORT TO [employer] AND CARDIOVASCULAR SURGEON THE FIRST WEEK OF CARE AND THEN BI-WEEKLY. PLEASE ADDITIONALLY COMMUNICATE ANY ABNORMALS AND NEW FINDINGS TO THE SURGEONS OFFICE. For any questions or concerns please call surgical physician assistant Cara @ or Don @ Discharge Disposition: HOME WITH HOME HEALTH SERVICES
--- NOTE | 2020-09-23 15:39 | P.PN ---
Subjective Progress Note Date: 09/23/20 Principal diagnosis: Valvular heart disease this is a 64-year-old male patient who has valvular heart disease with severe mitral regurgitation. Tricuspid regurgitation and exertional dyspnea addition to chronic atrial fibrillation. The patient also has history of hypertension, hyperlipidemia, hypothyroidism and an inguinal hernia bilateral. He does have also symptoms obstructive sleep apnea although this has not been officially diagnosed. His preop ejection fraction was in the order of 50% based on the ALEXY and The Patient Severe Concentric LVH, Severe Mitral Regurgitation, Gfyz-[id number]-Fycstllr Aortic Regurgitation and Aortic Valve of 1.13 Cm Mild to Moderate Tricuspid Regurgitation. Based on his symptomatic valvular heart disease, the patient was taken to the operating room today and the patient underwent a mitral valve replacement and a tricuspid valve repair. The patient postop was brought into the intensive care unit for further evaluation and treatment. he patient arrived on a mechanical ventilator within assist-control mode at a rate of 12 with a tidal volume of 600 and FiO2 of 100% and a PEEP of 8. Initial blood gas showed a pH of 7.29 with a pCO2 of 52 and pO2 of 91. The this is a ventilator changes were done. The patient was admitted with Precedex. The patient had a cardiac index of 5.0 with a cardiac output of 11.5. He was on milrinone running at 0.3 g per KG per minute and norepinephrine infusion running at 0.05 g per KG per minute. the pulmonary artery pressures are 34/12. The patient is also on insulin drip at 6 units an hour and the patient is also on amiodarone drip at 1 mg per minute. His cardiac rhythm is sinus. Urine output is in order of 30 mL an hour. The patient has a mediastinal chest tube in the right pleural chest tube. Output from the right pleural chest tube has been minimal and the mediastinal chest tu be output has been in the order of 400 mL. The current hemoglobin is at 13.4. On 09/20/2020, the patient is extubated and the patient is doing well sitting up on a chair, comfortable without any significant respiratory distress. Currently the patient liters of oxygen by nasal cannula. The patient has a right-sided and a mediastinal chest tube which are placed to low continuous suction at -20 cm of water. There is no evidence of any air leak. The chest x-ray from today shows adequate expansion of both lungs. Hemodynamically, the patient has a cardiac output of 7.4 with an index of 3.2. Pulmonary artery pressures of 56/15. The CVP is at 9. The patient was taken off the norepinephrine infusion. The milrinone infusion is being gradually weaned off and currently is down to 0.15 Pascual respiratory gram per minute. Noted the patient also developed atrial fibrillation and the patient is currently on amiodarone drip at 0.5 mg per minute. The heart rate is controlled for now. Note that the patient went into atrial fibrillation for. Hours and subsequently converted back to normal sinus rhythm. Insulin drip is running at 5.5 units an hour. The patient will ultimately be on amiodarone. The right pleural chest tube is draining down 70mL an hour. Output from the recent chest tube is in order of 30 mL an hour. The patient is awake and alert. The patient is seen today 09/21/2020 in follow-up in the intensive care unit. He is currently sitting up in a chair at the bedside. Awake and alert in no acute distress. He denies any worsening shortness of breath, cough or c ongestion. His pain is well controlled. He is working well with the incentive spirometer. Right IJ [place] catheter in place. Cardiac output 7.7. Cardiac index 3.3. PA pressures 42/18 with a CVP of 14. Pulmicort drip will be discontinued today. He remains on oral amiodarone. He did have persistent atrial fibrillation following the surgery. He is currently bradycardiac remains in A. fib. He is maintaining good O2 saturations in the 90s on room air. His x-ray reveals a left lower lobe infiltrate. Small left pleural effusion. Resolution of previous minimal right pneumothorax. Right-sided chest tube remains in place. Patient is seen today 09/22/2020 in follow-up on the regular medical floor. He is currently sitting up in a chair at the bedside. Awake and alert in no acute distress. He is currently on room air and maintaining O2 saturations in the mid 90s. Currently afebrile. Hemodynamically stable. White count 7.7. Hemoglobin 10.4. Sodium 134. Potassium 4.5. Creatinine 1.19. He remains on bronchodilators. He is working well with the incentive spirometer. Up ambulating in the martinez with assistance. Patient is seen today 09/23/2020 in follow-up on the selective care unit. He sitting up in a chair. Awake and alert in no acute distress. He's been up ambu lating with assistance. No worsening shortness of breath, cough or congestion. Maintaining good O2 saturation in the mid 90s on room air. Working well with the incentive spirometer. He remains in atrial fibrillation with a controlled ventricular response and continued on amiodarone. Anticoagulated with Eliquis. White count 5.4. Hemoglobin 10.3. Sodium 136. Potassium 4.3. Creatinine 1.2. Chest x-ray reveals scattered pleural parenchymal opacities is noted at the lung bases. Small effusions. No significant change. Objective - Vital Signs Vital signs: Vital Signs Temp 98.0 F 09/23/20 11:57 Pulse 65 09/23/20 12:00 Resp 16 09/23/20 11:57 BP 134/72 09/23/20 11:57 Pulse Ox 96 09/23/20 11:57 Intake & Output 09/22/20 09/23/20 09/23/20 18:59 06:59 18:59 Intake Total 1979 980 Output Total 350 4 Balance 1979 -350 976 Weight 119.6 kg Intake: Oral 1979 980 Output: Urine 350 4 Other: Voiding Method Toilet Toilet Toilet # Voids 2 1 0 # Bowel Movements 0 ABP, PAP, CO, CI - Last Documented Arterial Blood Pressure 118/53 Pulmonary Artery Pressure 47/18 Cardiac Output 7.7 Cardiac Index 3.3 - Exam GENERAL EXAM: Alert, active, very pleasant 64-year-old gentleman, up in a chair at the bedside, on room air, comfortable in no apparent distress. HEAD: Normocephalic. EYES: Normal reaction of pupils, equal size. NOSE: Clear with pink turbinates. THROAT: No erythema or exudates. NECK: No masses, no JVD. CHEST: Sternal dressing dry and intact. Heart upper in place. No chest wall deformity. LUNGS: Equal air entry with basilar crackles left greater than right. CVS: S1 and S2 normal with no audible murmur, regular rhythm. ABDOMEN: No hepatosplenomegaly, normal bowel sounds, no guarding or rigidity. SPINE: No scoliosis or deformity SKIN: No rashes CENTRAL NERVOUS SYSTEM: No focal deficits, tone is normal in all 4 extremities. EXTREMITIES: There is no peripheral edema. No clubbing, no cyanosis. Peripheral pulses are intact. - Labs CBC & Chem 7: 09/23/20 08:45 09/23/20 08:45 Labs: Abnormal Lab Results - Last 24 Hours (Table) 09/22/20 09/22/20 09/23/20 Range/Units 16:49 20:12 05:44 RBC (4.30-5.90) m/uL Hgb (13.0-17.5) gm/dL Hct (39.0-53.0) % Plt Count (150-450) k/uL Sodium (137-145) mmol/L BUN (9-20) mg/dL Glucose (74-99) mg/dL POC Glucose (mg/dL) 102 H 127 H 101 H (75-99) mg/dL 09/23/20 09/23/20 Range/Units 08:45 08:45 RBC 3.11 L (4.30-5.90) m/uL Hgb 10.3 L (13.0-17.5) gm/dL Hct 29.1 L (39.0-53.0) % Plt Count 115 L (150-450) k/uL Sodium 136 L (137-145) mmol/L BUN 25 H (9-20) mg/dL Glucose 100 H (74-99) mg/dL POC Glucose (mg/dL) (75-99) mg/dL Assessment and Plan Assessment: 1 valvular heart disease with severe mitral regurgitation and tricuspid regurgitation post mitral valve replacement and tricuspid valve repair. 2 post thoracotomy, the patient is currently extubated the patient was activated yesterday without any major difficulties and currently the patient is on room air. 3atrial fibrillation, history of current rhythm is sinus, and overnight the patient went into A. fib RVR and the patient was loaded and maintain with amiodarone. This was switched to oral. The patient is currently in atrial fibrillation with controlled ventricular rate. 4 hypertension 5 hypothyroidism 6 COPD 7 inguinal hernia Plan The patient was seen and evaluated by Dr. Guevara Chest x-ray and labs reviewed Doing very well and on room air To be discharged home today Continue to utilize the incentive spirometer Follow-up chest x-ray in the office in 1-2 weeks' time I, the cosigning physician, performed a history & physical examination of the patient. Lungs sounds with basilar crackles left greater than right. Maintaining good O2 saturations in the 90s on room air. I discussed the assessment and plan of care with my nurse practitioner, Nicole Vigil. I attest to the above note as dictated by her.
[2020-09-23] MEDS ORDERED: APIXABAN 5 MG TAB PO SCH (21:00)
[2020-09-24] MEDS ORDERED: AMIODARONE 200 MG TAB PO SCH (09:00)
--- NOTE | 2020-09-25 11:11 | CDI ---
Documentation Clarification Form Date: 09/25/20 From: Marla Huber CCS Phone: If you have a question about this query, please contact Lizbeth Alejandro, Nursing Tech at [phone] between 8am and 5pm. Admit Date: 09/19/20 Discharge Date: 09/23/20 Patient Name: Ridge Galloway Visit Number: [id number] ATTENTION: The Clinical Documentation Specialists (CDI) and [facility] Coding Staff appreciate your assistance in clarifying documentation. Please respond to the clarification below the line at the bottom and electronically sign. The CDI & [facility] Coding staff will review the response and follow-up if needed. Please note: Queries are made part of the Legal Health Record. If you have any questions, please contact the author of this message via ITS. Dear Dr. Jack, Acute renal insufficiency was documented in the PNs. History/Risk Factors: Multiple valve disease, HHD, CAD, Hypothyroid, PHTN, COPD, Hyponatremia Patients baseline BUN/CR/GFR: 16, .98, 81 Clinical Indicators: Acute renal insufficiency Current BUN/Cr/GFR: 21, 1.14, 68 Treatment: Monitor IVF: Saline 0.9 % IV In order to capture the severity of condition, please clarify if the condition signifies: Acute renal failure, Please specify etiology (if known): Cortical Necrosis Medullary Necrosis Tubular Necrosis Acute kidney injury Acute on chronic renal failure CKD Stage 1 GFR >90 CKD Stage 2 GFR 60-89 CKD Stage 3 GFR 30-59 CKD Stage 4 GFR 15-29 CKD Stage 5 GFR <15 Chronic renal failure/Chronic Kidney disease (CKD) please stage (if known): CKD Stage 1 GFR >90 CKD Stage 2 GFR 60-89 CKD Stage 3 GFR 30-59 CKD Stage 4 GFR 15-29 CKD Stage 5 GFR <15 Other, please specify Unable to determine no evidence of acute renal insufficiency MTDD
== END 2020-09-23 15:14 | disposition home health service (06) | DRG 220 ==
LOC: 2ORMAIN 05:33 → 2SICU 14:15 → 3SCARD 09-21 16:15
PROVIDERS: ADMIT Surgery; ATTEND Surgery
PROC: 02580ZZ Destruction of Conduction Mechanism, Open Approach (ICD-10-PCS; principal; 2020-09-19 08:00)
PROC: 02UJ0JZ Supplement Tricuspid Valve with Synthetic Substitute, Open Approach (ICD-10-PCS; principal; 2020-09-19 08:00)
PROC: 5A1221Z Performance of Cardiac Output, Continuous (ICD-10-PCS; principal; 2020-09-19 08:00)
PROC: 02L70CK Occlusion of Left Atrial Appendage with Extraluminal Device, Open Approach (ICD-10-PCS; principal; 2020-09-19 08:00)
PROC: 02UG0JZ Supplement Mitral Valve with Synthetic Substitute, Open Approach (ICD-10-PCS; principal; 2020-09-19 08:00)
DX: I08.3 Combined rheumatic disorders of mitral, aortic and tricuspid valves (principal); I48.19 Other persistent atrial fibrillation; E87.1 Hypo-osmolality and hyponatremia; D62 Acute posthemorrhagic anemia; I27.22 Pulmonary hypertension due to left heart disease; Z68.33 Body mass index [BMI] 33.0-33.9, adult; J44.9 Chronic obstructive pulmonary disease, unspecified; I11.9 Hypertensive heart disease without heart failure; Z20.828 Contact with and (suspected) exposure to other viral communicable diseases; E78.5 Hyperlipidemia, unspecified; E03.9 Hypothyroidism, unspecified; K40.90 Unilateral inguinal hernia, without obstruction or gangrene, not specified as recurrent; I25.10 Atherosclerotic heart disease of native coronary artery without angina pectoris; G47.33 Obstructive sleep apnea (adult) (pediatric); E66.9 Obesity, unspecified; Z71.3 Dietary counseling and surveillance; Z87.891 Personal history of nicotine dependence; Z79.01 Long term (current) use of anticoagulants; Z79.890 Hormone replacement therapy; Z79.899 Other long term (current) drug therapy; Z90.49 Acquired absence of other specified parts of digestive tract; Z98.890 Other specified postprocedural states; Z88.0 Allergy status to penicillin; Z80.8 Family history of malignant neoplasm of other organs or systems; Z82.3 Family history of stroke
CPT/HCPCS: 71045; 71046; 80048; 80053; 82330; 82805; 83735; 85025; 85027; 85520; 85610; 85730; 86850; 86870; 86880; 86891; 86900; 86901; 86920; 87635; 94640

== ENCOUNTER → 2020-11-02 | Outpatient (CLI) | payer MEDICARE, BC ==
[2020-11-03 02:54] LABS: African American GFR (CKD) 72.6 (60.0-200.0); Albumin 4.4 g/dL (3.80-4.90); BUN/Creat Ratio 17.5 Ratio (12.00-20.00); Calcium 9.3 mg/dL (8.7-10.3); Chol/HDL Ratio 3.07; Globulin 2.2 g/dL (1.6-3.3); LDL Cholesterol,Calculated 66.2 mg/dL (0.0-131.0); Non-African American GFR(CKD) 62.6 (60.0-200.0); Potassium 4.3 mmol/L (3.5-5.5); Total Bilirubin 0.5 mg/dL (0.2-1.2); Total Protein 6.6 g/dL (6.2-8.2); VLDL Calculation 22.8 mg/dL (5.00-40.00)
== END | disposition home or self-care (01) ==
LOC: LABWHC1 09:33
PROVIDERS: ATTEND Internal Medicine Interventional Cardiology
DX: E78.2 Mixed hyperlipidemia (principal); I48.11 Longstanding persistent atrial fibrillation
CPT/HCPCS: 36415; 80053; 80061; 84443

== ENCOUNTER 2020-11-09 07:05 | Day surgery (SDC) | payer BC, MEDICARE ==
[2020-11-02 13:42] VITALS: BMI 32.5
[~2020-11-09 07:05] MED LIST changes: -ALBUMIN HUMAN 25% 50 ML IV ONE; -ALBUMIN HUMAN 5% 500 ML IVPB ONE; -ASPIRIN 325 MG TAB PO ONE; -ATORVASTATIN 10 MG TAB PO ONE; -CALCIUM CHLORIDE 100 MG/ML 10 ML SYRINGE IV ONE; -CHLORHEXIDINE GLUCONATE 15 ML CUP MUCOUS MEM ONE; -CLEVIDIPINE BUTYRATE 25 MG in EMPTY BAG 1 BAG IV ONE; -DEXTROSE 5% IN WATER 1,000 ML with POTASSIUM CHLORIDE 110 MEQ, MAGNESIUM SULFATE 16 MEQ... IV ONE; -DEXTROSE 5% IN WATER 1,000 ML with POTASSIUM CHLORIDE 25 MEQ, SODIUM CHLORIDE 2.5MEQ/ML... IRRIGATION ONE; -HEPARIN SODIUM 1,000 UN/ML (10ML VL) IV ONE; -HEPARIN SODIUM,PORCINE 5,000 UNIT in SODIUM CHLORIDE 0.9% 500 ML 500 ML IV ONE; -INSULIN REGULAR 100 UNIT in SODIUM CHLORIDE 0.9% 100 ML IV ONE; -LACTATED RINGERS 1,000 ML IV ONE; -MAGNESIUM SULFATE MG 500 MG/ML IV ONE; -MANNITOL 25% 12.5 GM/50 ML VIAL IV ONE; -METOPROLOL TARTRATE 12.5 MG TAB PO ONE; -NITROGLYCERIN-D5W PMX 25 MG/250 ML BTL IV ONE; -NITROGLYCERIN-D5W PMX 50 MG in DEXTROSE/WATER 1 250ML.BAG IV ONE; -NOREPINEPHRINE 4 MG in SODIUM CHLORIDE 0.9% 250 ML IV ONE; -PAPAVERINE 360 MG in SODIUM CHLORIDE 0.9% 90 ML IV ONE; -PHENYLEPHRINE 10 MG/ML VIAL IV ONE; -PHENYLEPHRINE 40 MG in SODIUM CHLORIDE 0.9% 250 ML IV ONE; -PROTAMINE SULFATE 10 MG/ML 25 ML VIAL IV ONE; -PROTAMINE SULFATE 250 MG in EMPTY BAG 1 BAG IV ONE; -SODIUM BICARB 8.4% 50 ML SYR (1 MEQ/ML) IV ONE; -SODIUM CHLORIDE 0.9% 1,000 ML IV ONE; +SODIUM CHLORIDE 0.9% 1,000 ML IV SCH; -TRANEXAMIC ACID 2,000 MG in SODIUM CHLORIDE 0.9% 80 ML IV ONE; -ceFAZolin 1,000 MG in SODIUM CHLORIDE 0.9% IRRIGATIO 1,000 ML IRRIGATION ONE; -ceFAZolin 2,000 MG in SODIUM CHLORIDE 0.9% 30 ML IVPB ONE; -propofoL 1,000 MG/100 ML VIAL IV ONE
[2020-11-09 07:31] VITALS: TEMP 97.9
[2020-11-09] MEDS ORDERED: PROPOFOL 10 MG/ML 20 ML VIAL IV ONE (08:30)
[2020-11-09] MEDS ORDERED: LIDOCAINE 1% INJ 10MG/ML (20 ML MDV) ONE (08:30)
[2020-11-09] MEDS ORDERED: LEVOTHYROXINE 50 MCG TAB PO SCH (09:00)
[2020-11-09] MEDS ORDERED: AMIODARONE 200 MG TAB PO SCH (09:00)
[2020-11-09] MEDS ORDERED: LOSARTAN 50 MG TAB PO SCH (09:00)
[2020-11-09] MEDS ORDERED: METOPROLOL TARTRATE 12.5 MG TAB PO SCH (09:00)
[2020-11-09] MEDS ORDERED: SODIUM CHLORIDE 0.9% 1,000 ML IV SCH (09:00)
[2020-11-09] MEDS ORDERED: FUROSEMIDE 40 MG TAB PO SCH (09:00)
[2020-11-09] MEDS ORDERED: APIXABAN 5 MG TAB PO SCH (09:00)
[2020-11-09] MEDS ORDERED: ATORVASTATIN 40 MG TAB PO SCH (09:00)
[2020-11-09 10:05] VITALS: RESP 16
[2020-11-09 10:06] VITALS: BP 157/88; PULSE 73
--- NOTE | 2020-11-09 11:10 | ECHOT ---
TRANSESOPHAGEAL ECHOCARDIOGRAM INDICATION: Atrial fibrillation. PROCEDURE: After explaining the procedure to the patient, its risks and the complications, his blood pressure, heart rate, O2 saturation was monitored. The throat was sprayed with Cetacaine. He received sedation per the anesthesia department. The probe was introduced in the esophagus. Images were obtained. Following that, the probe was removed. There was no immediate complication. FINDINGS: Left atrial size is dilated. Left atrial appendage is closed. Left ventricular size is normal. There is global hypokinesis. Estimated ejection fraction 45% to 50%. The aortic valve appears to be normal. Evidence of mitral valve and tricuspid valve repair were noted. Descending thoracic aorta appears to be normal. No pericardial effusion was noted. Contrast bubble study revealed no evidence of shunting across the interatrial septum. Doppler pulse wave and color Doppler obtained revealed mild mitral and tricuspid regurgitation as well as mild aortic regurgitation. There was no shunting by color Doppler study. CONCLUSION: 1. Dilated left atrium with closed left atrial appendage. 2. Normal left ventricular size with mild global hypokinesis. 3. Evidence of mitral valve repair and tricuspid valve repair with mild mitral and tricuspid regurgitation. 4. Mild aortic regurgitation. 5. No shunting across the interatrial septum. 6. No pericardial effusion. MMODL / IJN: [id number] /
--- NOTE | 2020-11-09 11:16 | CE ---
CARDIAC ELECTROPHYSIOLOGY REPORT CARDIOVERSION PROCEDURE NOTE: INDICATION: Atrial fibrillation. PROCEDURE: After explaining the procedure to the patient, its risks and the complications, his blood pressure, heart rate, O2 saturation was monitored. After obtaining transesophageal echocardiogram and obtaining sedated state per anesthesia department, a synchronized biphasic cardioversion using 200 joules was performed with restoring normal sinus rhythm. There was no immediate complication. YONNY / KATIEN: [id number] /
== END 2020-11-09 10:32 | disposition home or self-care (01) ==
LOC: CATHCVL 07:05
PROVIDERS: ATTEND Internal Medicine Interventional Cardiology
DX: I48.11 Longstanding persistent atrial fibrillation (principal); I08.3 Combined rheumatic disorders of mitral, aortic and tricuspid valves; I11.9 Hypertensive heart disease without heart failure; E78.2 Mixed hyperlipidemia; E07.9 Disorder of thyroid, unspecified; Z87.891 Personal history of nicotine dependence; Z90.49 Acquired absence of other specified parts of digestive tract; Z98.890 Other specified postprocedural states; Z79.01 Long term (current) use of anticoagulants; Z79.890 Hormone replacement therapy; Z79.82 Long term (current) use of aspirin; Z79.899 Other long term (current) drug therapy; Z88.0 Allergy status to penicillin
CPT/HCPCS: 93312; 93320; 93325; 92960; J2001; J2704

== ENCOUNTER → 2021-01-02 | Outpatient (CLI) | payer MEDICARE ==
[2021-01-02 15:06] LABS: Basophils # (A) 0.08 X 10*3/uL (0.00-0.10); Basophils % (A) 1.4 %; Eosinophils # (A) 0.07 X 10*3/uL (0.04-0.35); Eosinophils % (A) 1.2 %; HCT 41.7 % (39.6-50.0); HGB 13.7 g/dL (13.0-17.0); Lymphocytes # (A) 1.49 X 10*3/uL (0.90-5.00); Lymphocytes % (A) 25.5 %; MCH 27.6 pg (27.0-32.0); MCHC 32.9 g/dL (32.0-37.0); MCV 83.9 fL (80.0-97.0); Mean Platelet Volume 10.6 fL (9.5-12.2); Monocytes # (A) 0.65 X 10*3/uL (0.20-1.00); Monocytes % (A) 11.1 %; Neutrophils # (A) 3.54 X 10*3/uL (1.80-7.70); Neutrophils % (A) 60.5 %; Platelet Count 200 X 10*3/uL (140-440); RBC 4.97 X 10*6/uL (4.40-5.60); RDW 13.7 % (11.5-14.5); WBC 5.85 X 10*3/uL (4.50-10.00)
[2021-01-02 16:01] LABS: African American GFR (CKD) 65.9 (60.0-200.0); Albumin 4.6 g/dL (3.80-4.90); Albumin/Globulin Ratio 2.3 (1.60-3.17); Anion Gap 8.9 mmol/L (4.00-12.00); BUN/Creat Ratio 13.85 Ratio (12.00-20.00); Calcium 9.4 mg/dL (8.7-10.3); Carbon Dioxide 25.1 mmol/L (21.6-31.8); Chol/HDL Ratio 2.98; LDL Cholesterol,Calculated 65.2 mg/dL (0.0-131.0); Non-African American GFR(CKD) 56.9 (60.0-200.0); Potassium 4.6 mmol/L (3.5-5.5); Total Bilirubin 0.6 mg/dL (0.2-1.2); Total Protein 6.6 g/dL (6.2-8.2); VLDL Calculation 23.8 mg/dL (5.00-40.00)
== END | disposition home or self-care (01) ==
LOC: LABWHC1 09:20
PROVIDERS: ATTEND Surgery
DX: K40.90 Unilateral inguinal hernia, without obstruction or gangrene, not specified as recurrent (principal); E78.2 Mixed hyperlipidemia; I48.11 Longstanding persistent atrial fibrillation
CPT/HCPCS: 36415; 80053; 80061; 84443; 85025

== ENCOUNTER 2021-01-16 07:36 | Day surgery (SDC) | payer MEDICARE ==
[2021-01-12 13:16] VITALS: BMI 33.7
[~2021-01-16 07:36] MED LIST changes: +ACETAMINOPHEN TAB 500 MG TAB PO PRN; +HEPARIN SODIUM,PORCINE 5,000 UNIT/ML 1 ML VIAL SQ PRN; -SODIUM CHLORIDE 0.9% 1,000 ML IV SCH
[2021-01-16 08:09] VITALS: RESP 16
[2021-01-16] MEDS ORDERED: LACTATED RINGERS 1,000 ML IV ONE ×3 (08:24→11:51)
[2021-01-16] MEDS ORDERED: ONDANSETRON 4 MG/2 ML VIAL ONE (08:31)
[2021-01-16] MEDS ORDERED: ONDANSETRON 4 MG/2 ML VIAL IVP ONE (08:34)
[2021-01-16] MEDS ORDERED: DEXAMETHASONE SOD PHOSPHATE 4 MG/ML 1 ML VIAL IV ONE (08:34)
--- NOTE | 2021-01-16 09:11 | P.GSHP ---
History of Present Illness H&P Date: 01/16/21 Chief Complaint: Left inguinal hernia 65-year-old male here today for elective repair left inguinal hernia. Patient has had a left inguinal hernia for some time. Increasing in size. Mild pain at times. No nausea or vomiting. No change in bowel habits. History of previous umbilical and right inguinal hernia repair in past. Past Medical History Past Medical History: Atrial Fibrillation, Hyperlipidemia, Hypertension, Mitral Valve Prolapse (MVP), Thyroid Disorder Additional Past Medical History / Comment(s): present left inguinal hernia, hx murmur-mitral valve regurgitation w/ surgery, hypothyroidism History of Any Multi-Drug Resistant Organisms: None Reported Past Surgical History: Cholecystectomy, Hernia Repair, Tonsillectomy Additional Past Surgical History / Comment(s): Right inguinal hernia repair, umbilical hernia repair. 09/19/20 Mitral & tricuspid valve repair, maze proc. 11/09/20 ALEXY, Cardioversion. Past Anesthesia/Blood Transfusion Reactions: No Reported Reaction, Motion Sickness Additional Past Anesthesia/Blood Transfusion Reaction / Comment(s): no hx blood transfusion. mild seasickness x1. Smoking Status: Former smoker - Past Family History Father Family Medical History: Cancer Additional Family Medical History / Comment(s): Father of brain cancer Mother Family Medical History: CVA/TIA Additional Family Medical History / Comment(s): Mother of stroke Sister(s) Family Medical History: Cancer Additional Family Medical History / Comment(s): 1 had leukemia, 1 had brain tumor Medications and Allergies Home Medications Medication Instructions Recorded Confirmed Type Apixaban [Eliquis] 5 mg PO BID 08/01/20 01/12/21 History Levothyroxine Sodium [Synthroid] 100 mcg PO DAILY 08/01/20 01/12/21 History Amiodarone [Cordarone] 200 mg PO DAILY #30 tab 09/23/20 01/12/21 Rx Furosemide [Lasix] 40 mg PO DAILY #5 tablet 09/23/20 01/12/21 Rx Losartan Potassium 50 mg PO DAILY 11/02/20 01/12/21 History Atorvastatin [Lipitor] 40 mg PO HS 01/16/21 01/16/21 History Metoprolol Tartrate 25 mg PO BID 01/16/21 01/16/21 History Allergies Allergy/AdvReac Type Severity Reaction Status Date / Time Penicillins Allergy Rash/Hives Verified 01/16/21 07:57 Surgical - Exam Vital Signs Temp Pulse Resp Pulse Ox 97.4 F L 62 16 97 01/16/21 08:07 01/16/21 08:07 01/16/21 08:07 01/16/21 08:07 Physical exam: General: Well-developed, well-nourished HEENT: Normocephalic, sclerae nonicteric Abdomen: Nontender, nondistended, moderate sized partially reducible left inguinal hernia, no palpable right inguinal hernia Extremities: No edema Neuro: Alert and oriented Assessment and Plan (1) Inguinal hernia Narrative/Plan: 65-year-old male with left inguinal hernia. We'll proceed with laparoscopic da Ganesh assisted repair left inguinal hernia with mesh, possible open, possible bilateral. Risks of bleeding, infection, recurrence, bladder and bowel injury, numbness, nerve injury, conversion to an open procedure were discussed with the patient. The patient understands and wishes to proceed. Current Visit: Yes Status: Acute Code(s): K40.90 - UNIL INGUINAL HERNIA, W/O OBST OR GANGR, NOT SPCF RECUR SNOMED Code(s): 328686370
[2021-01-16] MEDS ORDERED: MIDAZOLAM 2 MG/2 ML VIAL ONE (10:43)
[2021-01-16] MEDS ORDERED: NEOSTIGMINE 1 MG/ML 10 ML VIAL ONE (10:43)
[2021-01-16] MEDS ORDERED: ROCURONIUM 10 MG/ML (5 ML VIAL) IV ONE (10:43)
[2021-01-16] MEDS ORDERED: SUCCINYLCHOLINE CHLORIDE 100 MG/5 ML SYR IV ONE (10:43)
[2021-01-16] MEDS ORDERED: LIDOCAINE 1% INJ 10MG/ML (20 ML MDV) ONE (10:43)
[2021-01-16] MEDS ORDERED: GLYCOPYRROLATE 0.2 MG/ML 2 ML VIAL ONE (10:43)
[2021-01-16] MEDS ORDERED: PROPOFOL 10 MG/ML 20 ML VIAL IV ONE (10:43)
[2021-01-16] MEDS ORDERED: fentaNYL (PF) 50 MCG/ML 2 ML AMP ONE (10:43)
[2021-01-16] MEDS ORDERED: HYDROmorphone (PF) 1 MG/ML ONE (10:43)
[2021-01-16] MEDS ORDERED: BUPIVACAIN-EPI 0.5%-1:200,000 30 ML VIAL SQ ONE (11:22)
[2021-01-16 12:33] VITALS: TEMP 97.6
[2021-01-16] MEDS ORDERED: TAMSULOSIN 0.4 MG CAP.ER.24H PO STA (12:34)
--- NOTE | 2021-01-16 12:36 | P.OP ---
Date of Procedure: 01/16/21 Procedure(s) Performed: PREOPERATIVE DIAGNOSIS: Left incarcerated inguinal hernia POSTOPERATIVE DIAGNOSIS: Same PROCEDURE: Laparoscopic repair incarcerated left inguinal hernia with the da Ganesh robot assistance with mesh SURGEON: Faustina EBL: Minimal ANESTHESIA: General COMPLICATIONS: None OPERATIVE PROCEDURE: Patient was placed in the operating table in the supine position. The patient was placed under general anesthesia. The abdomen was prepped and draped in usual sterile fashion. A small curvilinear supraumbilical incision was made through the previous scar site. The fascia was retracted anteriorly with Tomball forceps. The Veress needle was inserted. The saline drop test was normal. Insufflation took place to 15 mmHg. An 8 mm trocar was placed into the peritoneal cavity. 2 additional 8 mm trochars were placed in the right upper quadrant and left upper quadrant under visualization. The robotic arms were then brought in and docked into place. The fenestrated bipolar was used in the left arm and the laparoscopic lio was utilized in the right arm. A 30 8 mm scope was used in the up position. The peritoneal cavity was inspected. Patient had a large incarcerated left inguinal hernia. The sigmoid colon was present within the hernia sac. With gentle abdominal pressure and retraction laparoscopically we're able to reduce the sigmoid colon back into the peritoneal cavity. The peritoneum was incised in a horizontal fashion cephalad to the internal inguinal ring. Following that careful dissection of the preperitoneal space took place. This took place using both electrocautery, sharp dissection but primarily blunt dissection. Visualization of the pubic tubercle and Co oper's ligament took place medially. Full dissection took place laterally as well. The hernia sac was fully dissected. It was quite large. Once we had adequate space the extra large Bard 3-D mesh was advanced into the preperitoneal space and flattened out appropriately to cover all potential hernia sites. No sutures were used. The peritoneal defect was then closed using a locking 2-0 VLok suture. The large hernia sac was incorporated into the peritoneal closure. The pneumoperitoneum was then evacuated. The skin of all 3 sites was closed using a 4-0 Monocryl stitch. Skin glue was then applied. DISPOSITION: Stable to recovery room
[2021-01-16] MEDS: HYDROmorphone 0.5 MG/0.5 ML SYRINGE IVP ONE ×2 (13:10→13:15)
[2021-01-16 14:18] VITALS: BP 144/89; PULSE 80
[2021-01-16] MEDS ORDERED: IBUPROFEN 600 MG TAB PO SCH (15:31)
[2021-01-16] MEDS ORDERED: ACETAMINOPHEN TAB 325 MG TAB PO SCH (18:00)
== END 2021-01-16 14:35 | disposition home or self-care (01) ==
LOC: OR 07:36
PROVIDERS: ATTEND Surgery
DX: K40.30 Unilateral inguinal hernia, with obstruction, without gangrene, not specified as recurrent (principal); I48.91 Unspecified atrial fibrillation; E78.5 Hyperlipidemia, unspecified; I10 Essential (primary) hypertension; Z95.2 Presence of prosthetic heart valve; E03.9 Hypothyroidism, unspecified; Z90.49 Acquired absence of other specified parts of digestive tract; Z98.890 Other specified postprocedural states; Z87.891 Personal history of nicotine dependence; Z80.6 Family history of leukemia; Z80.8 Family history of malignant neoplasm of other organs or systems; Z82.3 Family history of stroke; Z79.01 Long term (current) use of anticoagulants; Z79.890 Hormone replacement therapy; Z79.899 Other long term (current) drug therapy; Z88.0 Allergy status to penicillin; Z88.8 Allergy status to other drugs, medicaments and biological substances
CPT/HCPCS: 49650; C1781; J2250; J1644; J1100; J2710; J0690; J2405; J2001; J3010; J1170 ×2; J0330; J2704

== ENCOUNTER → 2021-06-26 | Outpatient (CLI) | payer MEDICARE ==
[2021-06-27 04:19] LABS: African American GFR (CKD) 80.6 (60.0-200.0); Albumin 4.1 g/dL (3.80-4.90); Albumin/Globulin Ratio 1.86 (1.60-3.17); Anion Gap 8.4 mmol/L (4.00-12.00); BUN/Creat Ratio 16.36 Ratio (12.00-20.00); Calcium 8.8 mg/dL (8.7-10.3); Carbon Dioxide 23.6 mmol/L (21.6-31.8); Chol/HDL Ratio 2.88; Globulin 2.2 g/dL (1.6-3.3); Non-African American GFR(CKD) 69.6 (60.0-200.0); Potassium 4.6 mmol/L (3.5-5.5); Total Bilirubin 0.7 mg/dL (0.2-1.2); Total Protein 6.3 g/dL (6.2-8.2)
== END | disposition home or self-care (01) ==
LOC: LABWHC1 10:05
PROVIDERS: ATTEND Internal Medicine Interventional Cardiology
DX: E78.2 Mixed hyperlipidemia (principal)
CPT/HCPCS: 36415; 80053; 80061

== ENCOUNTER → 2021-11-24 | Outpatient (CLI) | payer MEDICARE ==
[2021-11-24 14:46] LABS: ALT 17 U/L (10-49); AST 20 U/L (14-35); African American GFR (CKD) 80.1 (60.0-200.0); Albumin 4.5 g/dL (3.8-4.9); Albumin/Globulin Ratio 1.88 (1.60-3.17); Alkaline Phosphatase 81 U/L (41-126); BUN/Creat Ratio 11.55 Ratio (12.00-20.00); Blood Urea Nitrogen 12.7 mg/dL (9.0-27.0); Calcium 9.5 mg/dL (8.7-10.3); Carbon Dioxide 25.2 mmol/L (20.0-27.5); Chloride 106 mmol/L (96-109); Globulin 2.4 g/dL (1.6-3.3); Glucose 101 mg/dL (70-110); LDL Cholesterol,Calculated 46.8 mg/dL (0.0-131.0); Non-African American GFR(CKD) 69.1 (60.0-200.0); Potassium 4.2 mmol/L (3.5-5.5); Sodium 144 mmol/L (135-145); Total Protein 6.9 g/dL (6.2-8.2); VLDL Calculation 18.22 mg/dL (5.00-40.00)
== END | disposition home or self-care (01) ==
LOC: LABWHC1 08:41
PROVIDERS: ATTEND Internal Medicine Interventional Cardiology
DX: E78.2 Mixed hyperlipidemia (principal)
CPT/HCPCS: 36415; 80053; 80061

== ENCOUNTER 2022-08-13 11:25 | Inpatient (IN) | payer MEDICARE ==
[2022-08-13] MEDS ORDERED: MAGNESIUM SULFATE-D5W PMX 1 GM in DEXTROSE/WATER 1 100ML.BAG IVPB SCH (15:15)
[2022-08-13 16:05] VITALS: BP 147/101; PULSE 85; RESP 14; TEMP 97
[2022-08-13 16:18] LABS: African American GFR (CKD) 85 (>60 ml/min/1.73 sqM); Anion Gap 12 mmol/L; Blood Urea Nitrogen 12 mg/dL (9-20); Calcium 9.7 mg/dL (8.4-10.2); Carbon Dioxide 26 mmol/L (22-30); Chloride 103 mmol/L (98-107); Glucose 96 mg/dL (74-99); Magnesium 1.9 mg/dL (1.6-2.3); Non-African American GFR(CKD) 74 (>60 ml/min/1.73 sqM); Potassium 4.3 mmol/L (3.5-5.1); Sodium 141 mmol/L (137-145)
--- NOTE | 2022-08-13 17:29 | P.HPCAR ---
History of Present Illness Please see my office note for admission Patient is resting comfortably in a chair Denies any chest discomfort no dizziness lightheadedness or palpitations On examination he is afebrile pulse rate in the 80s irregular Blood pressure 147/100 mmHg Irregular rhythm No murmurs No lower extremity edema No JVD or hepatojugular reflux Impression Persistent atrial fibrillation Left atrial enlargement Status post maze procedure Admitted for initiation of dofetilide Patient was an amiodarone previously and this and been discontinued in June of this year However he received a refill in the last few weeks from [facility] pharmacy and it included oral amiodarone milligrams daily He's been taking 200 mg oral amiodarone for the last 2-3 weeks When I met him in the office and confirmed that he had stopped amiodarone He had stopped amiodarone per the previous order from the office in June However when he received a refill he simply continued He was admitted today for dofetilide initiation His twelve-lead EKG shows atrial fibrillation His QT interval is 440 ms Labs are reviewed Sodium 141, potassium 4.3 BUN 12 and creatinine 1.05 Magnesium 1.9 and TSH normal at 3.46 His medication list was reviewed in the pharmacy department It includes amiodarone 200 mg by mouth daily which he's been taking and he took it this morning Unfortunately this was not flagged by the pharmacy department either I discussed this with the patient Dofetilide and amiodarone together are contraindicated, risk of VF Since amiodarone slow acting medications we will wait until November before we readmit him for dofetilide loading He'll be discharged home He will continue all his medications with the exceptions of #1 amiodarone #2 Lexapro He will continue anticoagulation Discharge day note Discussed the patient We will stop Lexapro and amiodarone and will bring him back after 2 months for initiation of dofetilide and electrical cardioversion on dofetilide Patient stable from a cardiovascular standpoint to go home Physical Exam Vitals: Vital Signs Temp Pulse Resp BP Pulse Ox 08/13/22 16:00 97.0 F L 85 14 147/101 99 Intake and Output 08/13/22 08/13/22 08/13/22 06:59 14:59 22:59 Other: Weight 103.6 kg Past Medical History Past Medical History: Atrial Fibrillation, Hyperlipidemia, Hypertension, Thyroid Disorder Additional Past Medical History / Comment(s): present left inguinal hernia, murmur-mitral valve regurgitation, hypothyroidism History of Any Multi-Drug Resistant Organisms: None Reported Past Surgical History: Cholecystectomy, Hernia Repair, Tonsillectomy Additional Past Surgical History / Comment(s): Right inguinal hernia repair, umbilical hernia repair Past Anesthesia/Blood Transfusion Reactions: No Reported Reaction Additional Past Anesthesia/Blood Transfusion Reaction / Comment(s): no hx blood transfusion Additional Past Alcohol Use History / Comment(s): quit smoking 5 yrs. ago, smoked on & off since teens, had quit for long periods of time - Past Family History Father Family Medical History: Cancer Additional Family Medical History / Comment(s): Father of brain cancer Mother Family Medical History: CVA/TIA Additional Family Medical History / Comment(s): Mother of stroke Sister(s) Family Medical History: Cancer Additional Family Medical History / Comment(s): 1 had leukemia, 1 had brain tumor Physical Examination Vital Signs Temp Pulse Resp BP Pulse Ox 08/13/22 16:00 97.0 F L 85 14 147/101 99 Intake and Output 08/13/22 08/13/22 08/13/22 06:59 14:59 22:59 Other: Weight 103.6 kg Results 08/13/22 15:49 Comprehensive Metabolic Panel 08/13/22 Range/Units 15:49 Sodium 141 (137-145) mmol/L Potassium 4.3 (3.5-5.1) mmol/L Chloride 103 (98-107) mmol/L Carbon Dioxide 26 (22-30) mmol/L BUN 12 (9-20) mg/dL Creatinine 1.05 (0.66-1.25) mg/dL Glucose 96 (74-99) mg/dL Calcium 9.7 (8.4-10.2) mg/dL Current Medications Generic Name Dose Route Start Last Admin Trade Name Freq PRN Reason Stop Dose Admin Apixaban 5 mg 08/13/22 21:00 Apixaban 5 Mg Tab PO BID [facility] Protocol Atorvastatin Calcium 40 mg 08/13/22 21:00 Atorvastatin 40 Mg Tab PO HS [facility] Furosemide 20 mg 08/14/22 09:00 Furosemide 20 Mg Tab PO DAILY [facility] Levothyroxine Sodium 112 mcg 08/14/22 06:30 Levothyroxine 112 Mcg Tab PO DAILY@0630 [facility] Losartan Potassium 50 mg 08/13/22 21:00 Losartan 50 Mg Tab PO HS [facility] Magnesium Oxide 400 mg 08/14/22 09:00 Magnesium Oxide 400 Mg Tab PO DAILY [facility] Metoprolol Tartrate 12.5 mg 08/13/22 21:00 Metoprolol Tartrate 12.5 Mg Tab PO BID [facility] Intake and Output 08/13/22 08/13/22 08/13/22 06:59 14:59 22:59 Other: Weight 103.6 kg Patient Weight 08/14/22 06:59 Weight 103.6 kg 08/13/22 15:49
[2022-08-13] MEDS ORDERED: DOFETILIDE 250 MCG CAP PO ONE (18:00)
[2022-08-13] MEDS ORDERED: LOSARTAN 50 MG TAB PO SCH (21:00)
[2022-08-13] MEDS ORDERED: METOPROLOL TARTRATE 12.5 MG TAB PO SCH (21:00)
[2022-08-13] MEDS ORDERED: APIXABAN 5 MG TAB PO SCH (21:00)
[2022-08-13] MEDS ORDERED: ATORVASTATIN 40 MG TAB PO SCH (21:00)
[2022-08-14] MEDS ORDERED: LEVOTHYROXINE 112 MCG TAB PO SCH (06:30)
[2022-08-14] MEDS ORDERED: LOSARTAN 50 MG TAB PO SCH (09:00)
[2022-08-14] MEDS ORDERED: MAGNESIUM OXIDE 400 MG TAB PO SCH (09:00)
[2022-08-14] MEDS ORDERED: FUROSEMIDE 20 MG TAB PO SCH (09:00)
== END 2022-08-13 17:44 | disposition home or self-care (01) | DRG 310 ==
LOC: 3SCARD 14:19
PROVIDERS: ADMIT Internal Medicine Clinical Cardiac Electrophysiology; ATTEND Internal Medicine Clinical Cardiac Electrophysiology
DX: I48.19 Other persistent atrial fibrillation (principal); I10 Essential (primary) hypertension; I34.0 Nonrheumatic mitral (valve) insufficiency; E78.5 Hyperlipidemia, unspecified; E03.9 Hypothyroidism, unspecified; Z79.01 Long term (current) use of anticoagulants; Z79.899 Other long term (current) drug therapy; Z82.3 Family history of stroke; Z53.09 Procedure and treatment not carried out because of other contraindication; Z88.0 Allergy status to penicillin
CPT/HCPCS: 80048; 83735; 84443

== ENCOUNTER 2022-11-06 11:08 | Inpatient (IN) | payer MEDICARE ==
[2022-11-06] MEDS ORDERED: MAGNESIUM SULFATE-D5W PMX 1 GM in DEXTROSE/WATER 1 100ML.BAG IVPB PRN (12:45)
[2022-11-06 13:03] LABS: INR 1.1 (<1.2); Prothrombin Time 11.2 sec (9.0-12.0)
[2022-11-06 13:11] LABS: Calcium 8.9 mg/dL (8.4-10.2); Magnesium 1.9 mg/dL (1.6-2.3); Potassium 4.2 mmol/L (3.5-5.1)
[2022-11-06] MEDS: MAGNESIUM OXIDE 400 MG TAB PO SCH (14:05)
[2022-11-06] MEDS: MAGNESIUM SULFATE-D5W PMX 1 GM in DEXTROSE/WATER 1 100ML.BAG IVPB SCH ×2 (14:33→18:04)
--- NOTE | 2022-11-06 17:53 | P.HPCAR ---
History of Present Illness This is Dr. Wise dictating an H/P on this patient The patient was interviewed and examined IMPRESSION / ASSESSMENT: Symptomatic persistent atrial fibrillation Mild cardio myopathy History of mitral valve prolapse and mitral regurgitation status post mitral valve repair and tricuspid valve repair Intraoperative maze procedure Left atrial appendectomy PLAN: Initiate dofetilide Electrical cardioversion subsequently to restore sinus rhythm Follow dofetilide protocol Continue anticoagulation HPI Patient remains in persistent atrial fibrillation with mild cardio myopathy He is on the undergone an intraoperative maze procedure during mitral valve repair and tricuspid valve repair Failed treatment with amiodarone in the past Amiodarone has been discontinued for over 2 months now ROS: No fever chills or rigors, no cough, phlegm or expectoration, no nausea, vomiting or diarrhea, no hematuria, dysuria, no musculoskeletal complaints, no strokes or seizures, no skin lesions. EXAMINATION: Blood pressure 119/81 mmHg pulse rate in the 60s afebrile 97.8F Breath sounds are equal bilaterally no rhonchi no crackles Heart sounds S1 and S2 are irregular no murmurs Abdomen soft No JVD REVIEW OF LABS, ECG & MEDICAL DATA Prothrombin time 11.2 Sodium 140, potassium 4.2, BUN 16 and creatinine 1.0 Magnesium 1.9 TSH 3.9 Home medications include metoprolol, losartan, levothyroxine, atorvastatin, ELIQUIS, Lexapro Amiodarone has been discontinued for greater than 2 months Physical Exam Vitals: Vital Signs Temp Pulse Resp BP Pulse Ox 11/06/22 16:00 97.8 F 66 17 126/81 96 11/06/22 14:00 66 17 11/06/22 11:35 98.0 F 68 17 119/81 97 Intake and Output 11/06/22 11/06/22 11/06/22 06:59 14:59 22:59 Intake Total 180 Balance 180 Intake: Oral 180 Other: Weight 104.355 kg Past Medical History Past Medical History: Atrial Fibrillation, Hypertension, Thyroid Disorder Additional Past Medical History / Comment(s): present left inguinal hernia, murmur-mitral valve regurgitation, hypothyroidism History of Any Multi-Drug Resistant Organisms: None Reported Past Surgical History: Cardiac Valve Replacement, Cholecystectomy, Hernia Repair, Tonsillectomy Additional Past Surgical History / Comment(s): Right inguinal hernia repair, umbilical hernia repair, valve repair Past Anesthesia/Blood Transfusion Reactions: No Reported Reaction Additional Past Anesthesia/Blood Transfusion Reaction / Comment(s): no hx blood transfusion Smoking Status: Former smoker - Past Family History Father Family Medical History: Cancer Additional Family Medical History / Comment(s): Father of brain cancer Mother Family Medical History: CVA/TIA Additional Family Medical History / Comment(s): Mother of stroke Sister(s) Family Medical History: Cancer Additional Family Medical History / Comment(s): 1 had leukemia, 1 had brain tumor Physical Examination Vital Signs Temp Pulse Resp BP Pulse Ox 11/06/22 16:00 97.8 F 66 17 126/81 96 11/06/22 14:00 66 17 11/06/22 11:35 98.0 F 68 17 119/81 97 Intake and Output 11/06/22 11/06/22 11/06/22 06:59 14:59 22:59 Intake Total 180 Balance 180 Intake: Oral 180 Other: Weight 104.355 kg Results 11/06/22 12:00 Coagulation 11/06/22 Range/Units 12:00 PT 11.2 (9.0-12.0) sec Comprehensive Metabolic Panel 11/06/22 Range/Units 12:00 Sodium 140 (137-145) mmol/L Potassium 4.2 (3.5-5.1) mmol/L Chloride 107 (98-107) mmol/L Carbon Dioxide 25 (22-30) mmol/L BUN 16 (9-20) mg/dL Creatinine 1.01 (0.66-1.25) mg/dL Glucose 124 H (74-99) mg/dL Calcium 8.9 (8.4-10.2) mg/dL Current Medications Generic Name Dose Route Start Last Admin Trade Name Freq PRN Reason Stop Dose Admin Apixaban 5 mg 11/06/22 21:00 Apixaban 5 Mg Tab PO BID [facility] Protocol Atorvastatin Calcium 40 mg 11/07/22 09:00 Atorvastatin 40 Mg Tab PO DAILY [facility] Dofetilide 500 mcg 11/06/22 18:00 Dofetilide 500 Mcg Cap PO 11/06/22 18:01 ONCE ONE Furosemide 20 mg 11/07/22 09:00 Furosemide 20 Mg Tab PO DAILY [facility] Magnesium Sulfate/Dextrose 1 100 mls @ 400 mls/hr 11/06/22 12:45 gm/ IV Solution IVPB 11/12/22 23:00 Q15M PRN TIKOSYN LOAD Levothyroxine Sodium 112 mcg 11/07/22 06:30 Levothyroxine 112 Mcg Tab PO DAILY@0630 [facility] Losartan Potassium 50 mg 11/07/22 09:00 Losartan 50 Mg Tab PO DAILY [facility] Magnesium Oxide 400 mg 11/06/22 12:15 11/06/22 14:05 Magnesium Oxide 400 Mg Tab PO 400 mg DAILY [facility] Administration Metoprolol Tartrate 12.5 mg 11/06/22 21:00 Metoprolol Tartrate 12.5 Mg Tab PO BID [facility] Sodium Chloride 10 ml 11/06/22 12:00 11/06/22 14:05 Sodium Chloride 0.9% Flush 10 Ml Syringe IV 10 ml BID [facility]AMESON Administration Intake and Output 11/06/22 11/06/22 11/06/22 06:59 14:59 22:59 Intake Total 180 Balance 180 Intake: Oral 180 Other: Weight 104.355 kg Patient Weight 11/07/22 06:59 Weight 104.355 kg 11/06/22 12:00
[2022-11-06] MEDS ORDERED: DOFETILIDE 500 MCG CAP PO ONE (18:00)
[2022-11-06] MEDS: APIXABAN 5 MG TAB PO SCH (20:05)
[2022-11-06] MEDS: METOPROLOL TARTRATE 12.5 MG TAB PO SCH (20:05)
[2022-11-07] MEDS ORDERED: DOFETILIDE 500 MCG CAP PO ONE ×2 (06:00→18:00)
[2022-11-07] MEDS: LEVOTHYROXINE 112 MCG TAB PO SCH (06:01)
[2022-11-07] MEDS: METOPROLOL TARTRATE 12.5 MG TAB PO SCH ×2 (06:01→20:00)
[2022-11-07] MEDS: LOSARTAN 50 MG TAB PO SCH (06:01)
[2022-11-07] MEDS: APIXABAN 5 MG TAB PO SCH ×2 (06:01→20:00)
[2022-11-07] MEDS: ATORVASTATIN 40 MG TAB PO SCH (06:01)
[2022-11-07] MEDS: MAGNESIUM OXIDE 400 MG TAB PO SCH (06:01)
[2022-11-07] MEDS: FUROSEMIDE 20 MG TAB PO SCH (06:01)
[2022-11-07 09:54] LABS: Calcium 9.3 mg/dL (8.4-10.2); Magnesium 1.9 mg/dL (1.6-2.3); Potassium 4.2 mmol/L (3.5-5.1)
--- NOTE | 2022-11-07 11:33 | P.PN ---
Progress Note - Text Patient converted to sinus rhythm this morning This occurred after his second dose of dofetilide 500 g each His absolute QT interval is 480 ms During atrial fibrillation his absolute QT interval was about 420 ms No ventricular arrhythmias other than an occasional PVC pre-conversion absolute QT interval of 460 to a postconversion absolute QT interval of 480 ms on telemetry strips This was measured post PVC Patient is doing well no dizziness no lightheadedness or chest pain Blood pressure 120/72 mmHg pulse rate in the 60s afebrile Normal heart sounds tomorrow to gallops Breath sounds are clear no rhonchi no crackles Extremities warm Sodium 142, potassium 4.2 BUN 18 and creatinine 1.03 Magnesium 1.9 Normal TSH Impression Persistent atrial fibrillation status post maze procedure and left atrial appendicectomy Status post mitral prolapse and mitral valve repair along with tricuspid repair Successful chemical cardioversion with 500 g of dofetilide after the second dose Absolute QT interval 480 ms, postconversion a Plan Continue monitoring of the QT interval for at least 6 doses of dofetilide Keep potassium greater than 4 Keep magnesium greater than 2 Continue low-dose metoprolol 12.5 mg twice daily, continue oral magnesium, continue losartan Continue ELIQUIS Reassess need for Lasix, especially with his improvement in LV function
[2022-11-07 22:43] VITALS: RESP 18
[2022-11-08] MEDS: LEVOTHYROXINE 112 MCG TAB PO SCH (05:54)
[2022-11-08] MEDS ORDERED: DOFETILIDE 500 MCG CAP PO ONE ×2 (06:00→18:00)
[2022-11-08 09:31] LABS: Calcium 8.8 mg/dL (8.4-10.2); Magnesium 1.9 mg/dL (1.6-2.3); Potassium 4.1 mmol/L (3.5-5.1)
[2022-11-08] MEDS: FUROSEMIDE 20 MG TAB PO SCH (09:42)
[2022-11-08] MEDS: ATORVASTATIN 40 MG TAB PO SCH (09:42)
[2022-11-08] MEDS: APIXABAN 5 MG TAB PO SCH ×2 (09:42→21:00)
[2022-11-08] MEDS: METOPROLOL TARTRATE 12.5 MG TAB PO SCH ×2 (09:42→21:00)
[2022-11-08] MEDS: LOSARTAN 50 MG TAB PO SCH (09:42)
[2022-11-08] MEDS: MAGNESIUM OXIDE 400 MG TAB PO SCH (09:42)
[2022-11-08 11:57] LABS: Glucose,Whole Blood 139 mg/dL (70-110)
--- NOTE | 2022-11-08 13:26 | P.PN ---
Subjective Progress Note Date: 11/08/2211/07 Patient converted to sinus rhythm this morning This occurred after his second dose of dofetilide 500 g each His absolute QT interval is 480 ms During atrial fibrillation his absolute QT interval was about 420 ms No ventricular arrhythmias other than an occasional PVC pre-conversion absolute QT interval of 460 to a postconversion absolute QT interval of 480 ms on telemetry strips This was measured post PVC Patient is doing well no dizziness no lightheadedness or chest pain Blood pressure 120/72 mmHg pulse rate in the 60s afebrile Normal heart sounds and no gallops Breath sounds are clear no rhonchi no crackles Extremities warm Sodium 142, potassium 4.2 BUN 18 and creatinine 1.03 Magnesium 1.9 Normal TSH 11/08 Patient is doing well. No dizziness or lightheadedness. No arrhythmias. No ch est pain no palpitations. Absolute QT less than 440. Blood pressure 119/79 and heart rate in the 70s. Potassium 4.1, magnesium 1.9, BUN 16 creatinine 1.01. Impression Persistent atrial fibrillation status post maze procedure and left atrial appendicectomy Status post mitral prolapse and mitral valve repair along with tricuspid repair Successful chemical cardioversion with 500 g of dofetilide after the second dose Absolute QT interval 480 ms, postconversion a Plan Continue monitoring of the QT interval for at least 6 doses of dofetilide Keep potassium greater than 4 Keep magnesium greater than 2 Continue dofetilide 500 mg every 12 hours Repeat EKG for tonight and tomorrow morning Continue low-dose metoprolol 12.5 mg twice daily, continue oral magnesium, continue losartan Continue ELIQUIS Reassess need for Lasix, especially with his improvement in LV function Objective - Vital Signs Vital signs: Vital Signs Temp 98.4 F 11/08/22 11:47 Pulse 73 11/08/22 11:47 Resp 18 11/08/22 11:47 BP 119/79 11/08/22 11:47 Pulse Ox 99 11/08/22 11:47 FiO2 Intake & Output 11/07/22 11/08/22 11/08/22 18:59 06:59 18:59 Intake Total 360 118 Balance 360 118 Weight 104.7 kg Intake: Oral 360 118 Other: Voiding Method Toilet Toilet # Voids 1 - Labs CBC & Chem 7: 11/08/22 08:24 Labs: Abnormal Lab Results - Last 24 Hours (Table) 11/08/22 11/08/22 Range/Units 08:24 11:55 Glucose 111 H (74-99) mg/dL POC Glucose (mg/dL) 139 H (70-110) mg/dL
[2022-11-09] MEDS ORDERED: DOFETILIDE 500 MCG CAP PO ONE ×2 (06:00→06:15)
[2022-11-09] MEDS: LEVOTHYROXINE 112 MCG TAB PO SCH (06:22)
[2022-11-09 08:57] LABS: Calcium 8.5 mg/dL (8.4-10.2); Magnesium 1.8 mg/dL (1.6-2.3)
[2022-11-09] MEDS: METOPROLOL TARTRATE 12.5 MG TAB PO SCH (09:22)
[2022-11-09] MEDS: LOSARTAN 50 MG TAB PO SCH (09:22)
[2022-11-09] MEDS: FUROSEMIDE 20 MG TAB PO SCH (09:22)
[2022-11-09] MEDS: APIXABAN 5 MG TAB PO SCH (09:22)
[2022-11-09] MEDS: ATORVASTATIN 40 MG TAB PO SCH (09:22)
[2022-11-09] MEDS: MAGNESIUM OXIDE 400 MG TAB PO SCH (09:23)
[2022-11-09 12:29] VITALS: BP 115/74; PULSE 54; TEMP 97.5
--- NOTE | 2022-11-09 14:38 | P.DS ---
Providers Date of admission: 11/06/22 11:23 Expected date of discharge: 11/09/22 Attending physician: King Wise Consults: 11/08/22 12:37 Consult Physician Routine Consulting Provider: Joseph Wan Reason/Comments: mitral valve disease, medical management Do you want consulting provider notified?: Yes Primary care physician: Joseph Wan [facility] Course: 11/07 Patient converted to sinus rhythm this morning This occurred after his second dose of dofetilide 500 g each His absolute QT interval is 480 ms During atrial fibrillation his absolute QT interval was about 420 ms No ventricular arrhythmias other than an occasional PVC pre-conversion absolute QT interval of 460 to a postconversion absolute QT interval of 480 ms on telemetry strips This was measured post PVC Patient is doing well no dizziness no lightheadedness or chest pain Blood pressure 120/72 mmHg pulse rate in the 60s afebrile Normal heart sounds and no gallops Breath sounds are clear no rhonchi no crackles Extremities warm Sodium 142, potassium 4.2 BUN 18 and creatinine 1.03 Magnesium 1.9 Normal TSH 11/08 Patient is doing well. No dizziness or lightheadedness. No arrhythmias. No chest pain no palpitations. Absolute QT less than 440. Blood pressure 119/79 and heart rate in the 70s. Potassium 4.1, magnesium 1.9, BUN 16 creatinine 1.01. 11/09 Patient continues to do well. Repeat EKG revealed feels absolute QT of 460. Potassium is 4, magnesium 1.8, creatinine 1.0. Patient is maintained on oral magnesium. Impression Persistent atrial fibrillation status post maze procedure and left atrial appendicectomy Status post mitral prolapse and mitral valve repair along with tricuspid repair Successful chemical cardioversion with 500 g of dofetilide after the second dose Plan Discharge patient home today. Continue dofetilide 500 mg every 12 hours, prescriptions provided for 1 week and 3 months Follow-up with Dr. Maxwell in one week and Dr. Min in 6 months Continue low-dose metoprolol 12.5 mg twice daily, continue oral magnesium, continue losartan Continue ELIQUIS Nurse practitioner note has been reviewed, I agree with the documented findings and plan of care. Patient was seen and examined. Patient Condition at Discharge: Good Plan - Discharge Summary Discharge Rx Participant: No New Discharge Prescriptions: New Magnesium Oxide [Mag-Ox] 400 mg PO DAILY #30 tab Dofetilide [Tikosyn] 500 mcg PO Q12HR #14 cap Dofetilide [Tikosyn] 500 mcg PO Q12HR #180 cap Continue Apixaban [Eliquis] 5 mg PO BID Losartan Potassium 50 mg PO DAILY Metoprolol Tartrate 12.5 mg PO BID Atorvastatin [Lipitor] 40 mg PO HS Levothyroxine Sodium [Synthroid] 125 mcg PO DAILY LORazepam [Ativan] 0.5 mg PO HS Escitalopram [Lexapro] 10 mg PO DAILY Discharge Medication List Apixaban [Eliquis] 5 mg PO BID 08/01/20 [History] Losartan Potassium 50 mg PO DAILY 11/02/20 [History] Atorvastatin [Lipitor] 40 mg PO HS 01/16/21 [History] Metoprolol Tartrate 12.5 mg PO BID 01/16/21 [History] LORazepam [Ativan] 0.5 mg PO HS 08/13/22 [History] Levothyroxine Sodium [Synthroid] 125 mcg PO DAILY 08/13/22 [History] Escitalopram [Lexapro] 10 mg PO DAILY 11/06/22 [History] Dofetilide [Tikosyn] 500 mcg PO Q12HR #14 cap 11/09/22 [Rx] Dofetilide [Tikosyn] 500 mcg PO Q12HR #180 cap 11/09/22 [Rx] Magnesium Oxide [Mag-Ox] 400 mg PO DAILY #30 tab 11/09/22 [Rx] Follow up Appointment(s)/Referral(s): King Wise MD [STAFF PHYSICIAN] - As Needed (6 months) Chad Maxwell MD [STAFF PHYSICIAN] - 1 Week Patient Instructions/Handouts: Dofetilide (By mouth) Discharge Disposition: HOME SELF-CARE
== END 2022-11-09 12:01 | disposition home or self-care (01) | DRG 310 ==
LOC: 3SCARD 11:23
PROVIDERS: ADMIT Internal Medicine Clinical Cardiac Electrophysiology; ATTEND Internal Medicine Clinical Cardiac Electrophysiology
DX: I48.19 Other persistent atrial fibrillation (principal); I42.9 Cardiomyopathy, unspecified; E03.9 Hypothyroidism, unspecified; I10 Essential (primary) hypertension; I08.1 Rheumatic disorders of both mitral and tricuspid valves; I49.3 Ventricular premature depolarization; Z87.19 Personal history of other diseases of the digestive system; Z79.890 Hormone replacement therapy; Z79.01 Long term (current) use of anticoagulants; Z87.891 Personal history of nicotine dependence; Z95.2 Presence of prosthetic heart valve; Z90.49 Acquired absence of other specified parts of digestive tract; Z88.0 Allergy status to penicillin
CPT/HCPCS: 80048; 83735; 84443; 85610